=== PATIENT | male | born 1960 | race Caucasian/White ===

== ENCOUNTER 2024-11-01 11:50 | Inpatient (IN) ==
--- NOTE | 2024-11-01 12:11 | Emergency Department Note ---
Impression & Plan Dizziness, Finger infection, Weakness ED Provider Note CHIEF COMPLAINT: Wobbly, losing vision, right finger and hand pain HISTORY OF PRESENTING ILLNESS: The patient is a 63-year-old male with a H paranoid schizophrenia who presents to the emergency department due to multiple complaints and is not giving a clear history. He confirms that he is feeling "wobbly", he has had changes in vision, he has a burn to his right pointer finger, right sided weakness, as well as "blue things on my hands". He denies fevers, chest pain, shortness of breath, abdominal pain. He is not answering my questions appropriately. I asked him if he is taking the antibiotics that he was sent for his right finger abscess and he states that he took it before coming here. He later states "I am wasting away, I am going to here". REVIEW OF SYSTEMS: See HPI for pertinent positives and pertinent negatives. ALLERGIES: NKDA MEDICATIONS: See below PAST MEDICAL HISTORY: See below PHYSICAL EXAM: VITALS: Vitals are noted on the nurses note and reviewed by myself. Vital signs stable. GENERAL: 63-year-old male, lying comfortably in bed, laughing, in no acute distress, nondiaphoretic, well-developed well-nourished. SKIN: Capillary refill less than 2 seconds. No rashes. HEENT: Normocephalic. PERRLA. EOMI. Nares patent. Mucous membranes moist. Neck is supple without nuchal rigidity. No facial droop. HEART: Regular rate and rhythm without murmurs gallops or rubs. LUNGS: CTA BL without wheezes, rales or rhonchi. No retractions or accessory muscle use. ABDOMEN: Positive BS x 4. Soft, nontender, without masses or organomegaly. No guarding or rebound tenderness. MUSCULOSKELETAL: Right pointer finger visualized with infection and swelling. The area is tender to touch. Right hand and fingers FROM. No redness or pain extending into the proximal aspect of the finger or hand. 2+ radial and ulnar pulse palpated bilaterally. 5/5 bilateral upper and lower extremity strength on exam. NEURO: Patient was alert and oriented to person place and time. Normal sensation to light and sharp touch. No focal neurological deficits. DIFFERENTIAL DIAGNOSIS: Stroke, TIA, intracranial hemorrhage, tumor, malignancy, MS, Guillain-Borja, migraine with aura, sepsis, abscess, fracture, dislocation, osteomyelitis, hypoglycemia, electrolyte abnormality, medication side effect, among others. ED COURSE AND MEDICAL DECISION MAKING: HISTORY FROM INDEPENDENT HISTORIAN: The patient himself. MEDICATIONS GIVEN: No medications were given. MONITOR: Continuous pvc monitor: Order was placed for continuous pvc monitor. Patient was placed on the pvc monitor and continuous pulse ox. Patient was noted to be in normal sinus rhythm at an initial rate of 70 bpm per my interpretation. EKG: EKG was interpreted by myself as normal sinus rhythm. No obvious arrhythmia. No ST or T wave abnormality. No significant change when compared to previous EKG from 01/27/2024. INTERPRETATION OF LABS: I interpreted the labs with full lab results as below in the lab section of this note. Pertinent lab results discussed in the MDM section below. INTERPRETATION OF IMAGING: Imaging studies were interpreted by myself and read by radiology as per the imaging section of this note. CT head - No hemorrhage, mass effect, or evidence of acute ischemia change. CTA head neck - Unremarkable CT angio of head and neck. X-ray right pointer finger - Soft tissue swelling with no acute bony abnormality identified. ESCALATION OF CARE CONSIDERED: Escalation of care was considered as the patient's history was all over the place and he was not answering questions appropriately. He does report dizziness as well as right-sided weakness. A stroke workup was completed showing nothing on CT scan and lab work. When the patient was trying to ambulate for discharge he was not able to stand on his own without nursing staff support. The patient was admitted to medicine for further workup. CONSULTATIONS: On-call [facility] hospitalist Dr. Florentino - Presented the patient to the provider. She was able to confirm that the patient is a paranoid schizophrenic and has a history of not taking his medication properly. She was able to find a note regarding the patient's Bactrim that he was prescribed for a right finger infection. He did not nut picker the Bactrim and stated that he was using "wine coolers for pain management". I did inform her of a full stroke workup here in the emergency department due to the patient not making sense and describing unilateral weakness. Nothing significant found on workup but patient was not able to ambulate upon discharge. I tried to contact his mother who did not answer the phone. She agreed to admitting the patient to medicine. MDM SUMMARY: I evaluated the 63-year-old male who presents to the emergency department with many complaints. The patient does have a history of paranoid schizophrenia and his history was all over the place. He reports unilateral weakness, feeling wobbly, and blurry vision at one time. See HPI and physical exam above. IV access was established and labs were obtained. A stroke workup was started after evaluating the patient. Physical exam is unremarkable and does not show neurological deficit or unilateral weakness. CT head as well as CTA head and neck is unremarkable. Patient also has an infection and abscess of the right pointer finger. He told me that he has been taking his antibiotic but when I discussed this case with the hospitalist they confirmed that he has not even picked up the prescription. An x-ray was obtained showing soft tissue swelling with no acute bony abnormality. Lab work shows a mild leukocytosis. WBC elevated 11.58. Hemodynamically stable. Coagulation panel within normal limits. No electrolyte abnormality. No FABIO. Glucose 109. Lactate 1.3. Troponin 4.6. All laboratory results reviewed with the patient. He is concerned regarding "blue stuff on his right middle finger". This does appear to be marker and is removed with alcohol. I had a long discussion with the patient regarding getting home safely today at he states "what am I supposed to do? Walk home?" I asked the patient how he got here today and then he stated " I drove my car is parked out front". When the nursing staff tried to get the patient up and ambulating he was extremely weak and not able to do so. I did reach out to the on-call hospitalist which can be seen in detail above. She agrees to admitting the patient for a full workup. I did try to reach out to his mother who did not answer the phone. Patient is agreeable for admission and all questions answered. The patient was admitted in stable condition. DIAGNOSIS: Dizziness, finger infection, weakness The chart was completed utilizing [employer] Speech voice recognition software. Grammatical errors, random word insertions, pronoun errors, and incomplete sentences are an occasional consequence of this system due to software limitations, ambient noise, and hardware issues. Any formal questions or concerns about the content, text, or information contained within the body of this dictation should be directly addressed to the provider for clarification. Past Med/Surg History Problem List Paranoid schizophrenia Alcohol use Prediabetes Osteomyelitis of finger of right hand Weakness (Acute) Dizziness (Acute) Finger infection (Acute) Abscess of finger of right hand (Acute) Burn of right index finger (Acute) Medical History MDD (major depressive disorder) HLD (hyperlipidemia) Schizophrenia Social History Smoking Status: Never smoker Second Hand Exposure: No; Do You Dip or Chew Tobacco: No; Hx Alcohol Use: Yes Hx Substance Use: No Preferred Language: [place]an Communication Ability: Effective Mission Coordinator Required: No Beliefs That Will Affect Care: None Current Living Situation: Parent Current Living Situation Comment: Mother Other Information That Helps Us Care for You: No Feels Safe at Home: Yes Safety Concerns: Feels Safe At This Time Assistive Devices: None Allergies Allergies Allergy/AdvReac Type Severity Reaction Status Date / Time No Known Allergies Unverified 11/01/24 15:22 Home Meds Previous Rx's Medication Instructions Recorded sulfamethoxazole 800 1 tab PO Q12H #20 tabs 10/29/24 mg-trimethoprim 160 mg tablet (Bactrim DS) Results & Data (ED) Vital Signs Vital Signs - 24 hr 11/01/24 11:58 11/01/24 12:22 11/01/24 12:23 Temperature 36.2 C L Temperature Source Temporal Artery Scan Pulse Rate 89 98 H 79 Pulse Rate [Left Finger] Pulse Rate from SpO2 Sensor Pulse Rhythm [Left Finger] Pulse Strength [Left Finger] Respiratory Rate 18 18 Respiratory Effort / Characteristics Non-Labored Spontaneous Respiratory Depth Normal Respiratory Pattern Regular Blood Pressure 129/86 145/94 H Blood Pressure [Right Arm] Blood Pressure Mean 100 105 Blood Pressure Mean [Right Arm] Blood Pressure Position [Right Arm] Pulse Oximetry 97 94 Oxygen Delivery Method Room Air Sepsis Recent Fever Within 48 Hours No Sepsis New/Unexplained Change in Mental Status N/A Sepsis Action Taken by Nursing No Action Required 11/01/24 12:23 11/01/24 12:45 11/01/24 12:51 Temperature Temperature Source Pulse Rate 65 Pulse Rate [Left Finger] 68 Pulse Rate from SpO2 Sensor 72 66 Pulse Rhythm [Left Finger] Pulse Strength [Left Finger] Respiratory Rate 18 17 Respiratory Effort / Characteristics Non-Labored Respiratory Depth Normal Respiratory Pattern Regular Blood Pressure Blood Pressure [Right Arm] 145/94 H Blood Pressure Mean Blood Pressure Mean [Right Arm] 111 Blood Pressure Position [Right Arm] Lying Pulse Oximetry 97 98 98 Oxygen Delivery Method Room Air Sepsis Recent Fever Within 48 Hours Sepsis New/Unexplained Change in Mental Status Sepsis Action Taken by Nursing 11/01/24 13:06 11/01/24 13:15 11/01/24 13:18 Temperature Temperature Source Pulse Rate 67 67 Pulse Rate [Left Finger] Pulse Rate from SpO2 Sensor 64 67 Pulse Rhythm [Left Finger] Pulse Strength [Left Finger] Respiratory Rate 22 19 Respiratory Effort / Characteristics Respiratory Depth Respiratory Pattern Blood Pressure 139/99 Blood Pressure [Right Arm] Blood Pressure Mean 104 Blood Pressure Mean [Right Arm] Blood Pressure Position [Right Arm] Pulse Oximetry 95 100 Oxygen Delivery Method Sepsis Recent Fever Within 48 Hours Sepsis New/Unexplained Change in Mental Status Sepsis Action Taken by Nursing 11/01/24 13:36 11/01/24 13:48 11/01/24 14:10 Temperature Temperature Source Pulse Rate 62 Pulse Rate [Left Finger] 64 Pulse Rate from SpO2 Sensor 64 Pulse Rhythm [Left Finger] Regular Pulse Strength [Left Finger] Normal Respiratory Rate 22 21 Respiratory Effort / Characteristics Non-Labored Respiratory Depth Normal Respiratory Pattern Blood Pressure 149/103 H 146/98 H Blood Pressure [Right Arm] 149/103 H Blood Pressure Mean 118 107 Blood Pressure Mean [Right Arm] 118 Blood Pressure Position [Right Arm] Lying Pulse Oximetry 97 97 Oxygen Delivery Method Room Air Sepsis Recent Fever Within 48 Hours Sepsis New/Unexplained Change in Mental Status Sepsis Action Taken by Nursing 11/01/24 14:10 11/01/24 14:14 11/01/24 14:30 Temperature Temperature Source Pulse Rate 64 63 Pulse Rate [Left Finger] 64 Pulse Rate from SpO2 Sensor Pulse Rhythm [Left Finger] Pulse Strength [Left Finger] Respiratory Rate 18 20 14 Respiratory Effort / Characteristics Non-Labored Respiratory Depth Normal Respiratory Pattern Regular Blood Pressure 146/98 H 134/80 Blood Pressure [Right Arm] Blood Pressure Mean 107 94 Blood Pressure Mean [Right Arm] Blood Pressure Position [Right Arm] Pulse Oximetry 96 93 94 Oxygen Delivery Method Room Air Sepsis Recent Fever Within 48 Hours Sepsis New/Unexplained Change in Mental Status Sepsis Action Taken by Nursing 11/01/24 14:45 11/01/24 15:45 11/01/24 16:02 Temperature Temperature Source Pulse Rate 63 61 Pulse Rate [Left Finger] 68 Pulse Rate from SpO2 Sensor 63 60 Pulse Rhythm [Left Finger] Pulse Strength [Left Finger] Respiratory Rate 18 16 18 Respiratory Effort / Characteristics Non-Labored Respiratory Depth Normal Respiratory Pattern Regular Blood Pressure Blood Pressure [Right Arm] Blood Pressure Mean Blood Pressure Mean [Right Arm] Blood Pressure Position [Right Arm] Lying Pulse Oximetry 96 94 95 Oxygen Delivery Method Room Air Sepsis Recent Fever Within 48 Hours Sepsis New/Unexplained Change in Mental Status Sepsis Action Taken by Nursing 11/01/24 16:15 11/01/24 16:30 11/01/24 16:51 Temperature Temperature Source Pulse Rate 75 61 65 Pulse Rate [Left Finger] Pulse Rate from SpO2 Sensor 76 62 65 Pulse Rhythm [Left Finger] Pulse Strength [Left Finger] Respiratory Rate 21 19 22 Respiratory Effort / Characteristics Respiratory Depth Respiratory Pattern Blood Pressure 142/100 H 154/100 H Blood Pressure [Right Arm] Blood Pressure Mean 114 118 Blood Pressure Mean [Right Arm] Blood Pressure Position [Right Arm] Pulse Oximetry 95 95 96 Oxygen Delivery Method Sepsis Recent Fever Within 48 Hours Sepsis New/Unexplained Change in Mental Status Sepsis Action Taken by Nursing 11/01/24 17:00 11/01/24 17:41 11/01/24 17:43 Temperature 36.9 C Temperature Source Oral Pulse Rate 86 72 Pulse Rate [Left Finger] 65 Pulse Rate from SpO2 Sensor Pulse Rhythm [Left Finger] Pulse Strength [Left Finger] Respiratory Rate 17 18 Respiratory Effort / Characteristics Non-Labored Respiratory Depth Normal Respiratory Pattern Regular Blood Pressure 135/96 Blood Pressure [Right Arm] Blood Pressure Mean 114 Blood Pressure Mean [Right Arm] Blood Pressure Position [Right Arm] Pulse Oximetry 96 95 Oxygen Delivery Method Room Air Sepsis Recent Fever Within 48 Hours Sepsis New/Unexplained Change in Mental Status Sepsis Action Taken by Nursing 11/01/24 17:53 11/01/24 19:30 Temperature Temperature Source Pulse Rate 58 L Pulse Rate [Left Finger] Pulse Rate from SpO2 Sensor 59 L Pulse Rhythm [Left Finger] Pulse Strength [Left Finger] Respiratory Rate 27 H Respiratory Effort / Characteristics Respiratory Depth Respiratory Pattern Blood Pressure 140/85 Blood Pressure [Right Arm] 126/80 Blood Pressure Mean 103 Blood Pressure Mean [Right Arm] 95 Blood Pressure Position [Right Arm] Pulse Oximetry 94 Oxygen Delivery Method Room Air Sepsis Recent Fever Within 48 Hours Sepsis New/Unexplained Change in Mental Status Sepsis Action Taken by Nursing Laboratory Data 11/04/24 10:17 11/04/24 10:17 Lab Results 11/01/24 11/01/24 11/01/24 Range/Units 12:18 12:22 12:27 WBC 11.58 H (4.8-10.8) K/ul RBC 4.68 L (4.70-6.10) M/uL Hgb 14.3 (14.0-18.0) g/dl POC Hgb 15.6 (14.0-18.0) g/dl Hct 42.7 (42.0-52.0) % POC Hct 46 (42-52) % MCV 91.2 (80.0-100.0) fL MCH 30.6 (25.0-34.0) pg MCHC 33.5 (32.0-36.0) g/dL RDW Std Deviation 49.3 H (36.4-46.3) fL RDW Coeff of Iker 14.8 H (11.5-14.5) % Plt Count 218 (130-400) K/uL MPV 10.7 (9.4-12.4) fL Immature Gran % (Auto) 1.5 % Neut % (Auto) 76.1 % Lymph % (Auto) 16.3 % [place] % (Auto) 0.9 % Eos % (Auto) 2.7 % Baso % (Auto) 2.5 % Neut # (Auto) 8.82 H (1.40-6.50) K/uL Lymph # (Auto) 1.89 (1.20-3.40) K/uL [place] # (Auto) 0.10 L (0.11-0.59) K/uL Eos # (Auto) 0.31 (0.00-0.50) K/uL Baso # (Auto) 0.29 H (0.00-0.20) K/uL Immature Gran # (Auto) 0.17 (0.01-0.20) K/uL PT 10.3 (9.0-12.0) Seconds INR 0.9 (0.9-1.1) APTT 30 (21-31) Seconds PTT Ratio 1.1 POC Sodium 139 (135-144) mmol/L Sodium 135 L (136-145) mmol/L POC Potassium 4.3 (3.3-5.0) mmol/L Potassium 4.2 (3.5-5.1) mmol/L POC Chloride 102 (101-112) mmol/L Chloride 103 (98-107) mmol/L Carbon Dioxide 26 (21-32) mmol/L POC Total CO2 23 L (24-31) mmol/L Anion Gap 6 (3-11) POC Anion Gap 19.0 (16-25) mmol/L POC BUN 13 (7-18) mg/dl BUN 13 (6-23) mg/dl Creatinine 1.02 (0.6-1.4) mg/dl POC Creatinine 1.2 (0.6-1.3) mg/dl Est Cr Clr Drug Dosing 72.3 ml/min eGFR 83.62 BUN/Creatinine Ratio 12.7 (10-20) Glucose 109 H (70-99(Fasting)) mg/dl POC Glucose 103 H (70-99) mg/dl POC Glucose (other) 116 H (70-99) mg/dl Estimat Average Glucose mg/dl Hemoglobin A1c (4.5-5.6) % Lactate (0.4-2.0) mmol/L Calcium 9.7 (8.6-10.3) mg/dl POC Ioniz Calcium Pat 1.21 (1.12-1.32) mmol/l Phosphorus (2.5-4.9) mg/dl Magnesium 1.9 (1.7-2.4) mg/dl Total Bilirubin 0.5 (0.2-1.0) mg/dl AST 20 (13-39) U/L ALT 15 (7-52) U/L Alkaline Phosphatase 124 H (34-104) U/L Total Creatine Kinase (30-223) U/L Troponin I High Sens 4.6 (0-20) pg/ml Total Protein 8.0 (6.0-8.3) gm/dl Albumin 4.5 (3.4-5.0) gm/dl Globulin 3.5 (2.5-4.0) gm/dl Albumin/Globulin Ratio 1.3 (0.9-2) Triglycerides (0-150) mg/dl Cholesterol (0-200) mg/dl LDL Cholesterol, Calc mg/dl VLDL Cholesterol, Calc (0-30) mg/dl HDL Cholesterol mg/dl Cholesterol/HDL Ratio (0-5) Urine Color Urine Appearance (Clear) Urine pH (4.5-7.5) Ur Specific [place] (1.000-1.030) Urine Protein (Negative) Urine Glucose (UA) (Negative) Urine Ketones (Negative) Urine Blood (Negative) Urine Nitrite (Negative) Urine Bilirubin (Negative) Urine Urobilinogen (Negative) Ur Leukocyte Esterase (Negative) Urine Comment Urine Opiates Screen (Neg) Ur Methadone, Qual (Neg) Urine Fentanyl Screen (Neg) Urine Barbiturates (Neg) Ur Phencyclidine (PCP) (Neg) U Amphetamin/Meth Scrn (Neg) MDMA (Ecstasy) Screen (Neg) U Benzodiazepines Scrn (Neg) Ur Cocaine Metabolite (Neg) U Marijuana (THC) Screen (Neg) Ethyl Alcohol mg/dL (<10.0) mg/dl 11/01/24 11/01/24 11/02/24 Range/Units 14:07 17:11 00:47 WBC (4.8-10.8) K/ul RBC (4.70-6.10) M/uL Hgb (14.0-18.0) g/dl POC Hgb (14.0-18.0) g/dl Hct (42.0-52.0) % POC Hct (42-52) % MCV (80.0-100.0) fL MCH (25.0-34.0) pg MCHC (32.0-36.0) g/dL RDW Std Deviation (36.4-46.3) fL RDW Coeff of Iker (11.5-14.5) % Plt Count (130-400) K/uL MPV (9.4-12.4) fL Immature Gran % (Auto) % Neut % (Auto) % Lymph % (Auto) % [place] % (Auto) % Eos % (Auto) % Baso % (Auto) % Neut # (Auto) (1.40-6.50) K/uL Lymph # (Auto) (1.20-3.40) K/uL [place] # (Auto) (0.11-0.59) K/uL Eos # (Auto) (0.00-0.50) K/uL Baso # (Auto) (0.00-0.20) K/uL Immature Gran # (Auto) (0.01-0.20) K/uL PT (9.0-12.0) Seconds INR (0.9-1.1) APTT (21-31) Seconds PTT Ratio POC Sodium (135-144) mmol/L Sodium (136-145) mmol/L POC Potassium (3.3-5.0) mmol/L Potassium (3.5-5.1) mmol/L POC Chloride (101-112) mmol/L Chloride (98-107) mmol/L Carbon Dioxide (21-32) mmol/L POC Total CO2 (24-31) mmol/L Anion Gap (3-11) POC Anion Gap (16-25) mmol/L POC BUN (7-18) mg/dl BUN (6-23) mg/dl Creatinine (0.6-1.4) mg/dl POC Creatinine (0.6-1.3) mg/dl Est Cr Clr Drug Dosing ml/min eGFR BUN/Creatinine Ratio (10-20) Glucose (70-99(Fasting)) mg/dl POC Glucose (70-99) mg/dl POC Glucose (other) (70-99) mg/dl Estimat Average Glucose mg/dl Hemoglobin A1c (4.5-5.6) % Lactate 1.3 (0.4-2.0) mmol/L Calcium (8.6-10.3) mg/dl POC Ioniz Calcium Pat (1.12-1.32) mmol/l Phosphorus (2.5-4.9) mg/dl Magnesium (1.7-2.4) mg/dl Total Bilirubin (0.2-1.0) mg/dl AST (13-39) U/L ALT (7-52) U/L Alkaline Phosphatase (34-104) U/L Total Creatine Kinase 115 (30-223) U/L Troponin I High Sens (0-20) pg/ml Total Protein (6.0-8.3) gm/dl Albumin (3.4-5.0) gm/dl Globulin (2.5-4.0) gm/dl Albumin/Globulin Ratio (0.9-2) Triglycerides (0-150) mg/dl Cholesterol (0-200) mg/dl LDL Cholesterol, Calc mg/dl VLDL Cholesterol, Calc (0-30) mg/dl HDL Cholesterol mg/dl Cholesterol/HDL Ratio (0-5) Urine Color Yellow Urine Appearance Clear (Clear) Urine pH 7.0 (4.5-7.5) Ur Specific [place] > 1.045 H (1.000-1.030) Urine Protein Negative (Negative) Urine Glucose (UA) Negative (Negative) Urine Ketones Trace H (Negative) Urine Blood Negative (Negative) Urine Nitrite Negative (Negative) Urine Bilirubin Negative (Negative) Urine Urobilinogen Negative (Negative) Ur Leukocyte Esterase Negative (Negative) Urine Comment Urine Opiates Screen Neg (Neg) Ur Methadone, Qual Neg (Neg) Urine Fentanyl Screen Neg (Neg) Urine Barbiturates Neg (Neg) Ur Phencyclidine (PCP) Neg (Neg) U Amphetamin/Meth Scrn Neg (Neg) MDMA (Ecstasy) Screen Neg (Neg) U Benzodiazepines Scrn Neg (Neg) Ur Cocaine Metabolite Neg (Neg) U Marijuana (THC) Screen Neg (Neg) Ethyl Alcohol mg/dL < 10.0 (<10.0) mg/dl 11/02/24 Range/Units 03:59 WBC 15.20 H (4.8-10.8) K/ul RBC 4.54 L (4.70-6.10) M/uL Hgb 14.0 (14.0-18.0) g/dl POC Hgb (14.0-18.0) g/dl Hct 41.1 L (42.0-52.0) % POC Hct (42-52) % MCV 90.5 (80.0-100.0) fL MCH 30.8 (25.0-34.0) pg MCHC 34.1 (32.0-36.0) g/dL RDW Std Deviation 48.9 H (36.4-46.3) fL RDW Coeff of Iker 14.8 H (11.5-14.5) % Plt Count 166 (130-400) K/uL MPV 10.3 (9.4-12.4) fL Immature Gran % (Auto) % Neut % (Auto) % Lymph % (Auto) % [place] % (Auto) % Eos % (Auto) % Baso % (Auto) % Neut # (Auto) (1.40-6.50) K/uL Lymph # (Auto) (1.20-3.40) K/uL [place] # (Auto) (0.11-0.59) K/uL Eos # (Auto) (0.00-0.50) K/uL Baso # (Auto) (0.00-0.20) K/uL Immature Gran # (Auto) (0.01-0.20) K/uL PT (9.0-12.0) Seconds INR (0.9-1.1) APTT (21-31) Seconds PTT Ratio POC Sodium (135-144) mmol/L Sodium 135 L (136-145) mmol/L POC Potassium (3.3-5.0) mmol/L Potassium 4.0 (3.5-5.1) mmol/L POC Chloride (101-112) mmol/L Chloride 103 (98-107) mmol/L Carbon Dioxide 26 (21-32) mmol/L POC Total CO2 (24-31) mmol/L Anion Gap 6 (3-11) POC Anion Gap (16-25) mmol/L POC BUN (7-18) mg/dl BUN 13 (6-23) mg/dl Creatinine 1.14 (0.6-1.4) mg/dl POC Creatinine (0.6-1.3) mg/dl Est Cr Clr Drug Dosing 64.7 ml/min eGFR 73.17 BUN/Creatinine Ratio 11.4 (10-20) Glucose 97 (70-99(Fasting)) mg/dl POC Glucose (70-99) mg/dl POC Glucose (other) (70-99) mg/dl Estimat Average Glucose 117 mg/dl Hemoglobin A1c 5.7 H (4.5-5.6) % Lactate (0.4-2.0) mmol/L Calcium 8.8 (8.6-10.3) mg/dl POC Ioniz Calcium Pat (1.12-1.32) mmol/l Phosphorus 2.9 (2.5-4.9) mg/dl Magnesium 2.1 (1.7-2.4) mg/dl Total Bilirubin (0.2-1.0) mg/dl AST (13-39) U/L ALT (7-52) U/L Alkaline Phosphatase (34-104) U/L Total Creatine Kinase (30-223) U/L Troponin I High Sens (0-20) pg/ml Total Protein (6.0-8.3) gm/dl Albumin (3.4-5.0) gm/dl Globulin (2.5-4.0) gm/dl Albumin/Globulin Ratio (0.9-2) Triglycerides 79 (0-150) mg/dl Cholesterol 141 (0-200) mg/dl LDL Cholesterol, Calc 85 mg/dl VLDL Cholesterol, Calc 16 (0-30) mg/dl HDL Cholesterol 40 mg/dl Cholesterol/HDL Ratio 3.5 (0-5) Urine Color Urine Appearance (Clear) Urine pH (4.5-7.5) Ur Specific [place] (1.000-1.030) Urine Protein (Negative) Urine Glucose (UA) (Negative) Urine Ketones (Negative) Urine Blood (Negative) Urine Nitrite (Negative) Urine Bilirubin (Negative) Urine Urobilinogen (Negative) Ur Leukocyte Esterase (Negative) Urine Comment Urine Opiates Screen (Neg) Ur Methadone, Qual (Neg) Urine Fentanyl Screen (Neg) Urine Barbiturates (Neg) Ur Phencyclidine (PCP) (Neg) U Amphetamin/Meth Scrn (Neg) MDMA (Ecstasy) Screen (Neg) U Benzodiazepines Scrn (Neg) Ur Cocaine Metabolite (Neg) U Marijuana (THC) Screen (Neg) Ethyl Alcohol mg/dL (<10.0) mg/dl Administered Medications Docusate Sodium (Docusate Sodium 100 Mg Cap) 100 mg PO BID STEFAN Stop: 12/02/24 20:59 Last Admin: 11/04/24 08:54 Dose: 100 mg Documented By: Admin: 11/03/24 21:20 Dose: 100 mg Documented By: Admin: 11/03/24 09:28 Dose: Not Given Documented By: Admin: 11/02/24 20:50 Dose: 100 mg Documented By: RUKHSANA Enoxaparin Sodium (Enoxaparin Inj 40 Mg/0.4 Ml Syr) 40 mg SQ Q24H STEFAN Stop: 12/01/24 21:48 Last Admin: 11/03/24 21:20 Dose: 40 mg Documented By: Admin: 11/02/24 20:51 Dose: 40 mg Documented By: Admin: 11/01/24 23:16 Dose: 40 mg Documented By: RAHEEM Folic Acid (Folic Acid 1 Mg Tab) 1 mg PO QAM STEFAN Stop: 12/02/24 08:59 Last Admin: 11/04/24 08:47 Dose: 1 mg Documented By: Admin: 11/03/24 09:29 Dose: 1 mg Documented By: Admin: 11/02/24 08:49 Dose: 1 mg Documented By: JEB Vancomycin HCl 1,000 mg/ (Sodium Chloride) 270 mls @ 200 mls/hr IV Q12H STEFAN Stop: 11/09/24 15:59 Last Infusion: 11/04/24 17:28 Dose: Infused Documented By: Admin: 11/04/24 16:07 Dose: 200 mls/hr Documented By: Infusion: 11/04/24 05:39 Dose: Infused Documented By: Admin: 11/04/24 04:11 Dose: 200 mls/hr Documented By: Infusion: 11/03/24 17:48 Dose: Infused Documented By: Admin: 11/03/24 16:26 Dose: 200 mls/hr Documented By: IOANA Ibuprofen (Ibuprofen 800 Mg Tab) 800 mg PO Q8H PRN PRN Reason: pain Stop: 12/02/24 10:44 Last Admin: 11/03/24 09:28 Dose: 800 mg Documented By: Admin: 11/02/24 11:08 Dose: 800 mg Documented By: JEB Multivitamins (Multivitamin Tab) 1 tab PO QAM STEFAN Stop: 12/03/24 08:59 Last Admin: 11/04/24 08:47 Dose: 1 tab Documented By: Admin: 11/03/24 10:54 Dose: 1 tab Documented By: IOANA Olanzapine (Olanzapine 2.5 Mg Tab) 2.5 mg PO HS STEFAN Stop: 12/01/24 21:48 Last Admin: 11/03/24 21:20 Dose: 2.5 mg Documented By: Admin: 11/02/24 20:50 Dose: 2.5 mg Documented By: Admin: 11/01/24 23:16 Dose: 2.5 mg Documented By: RAHEEM Thiamine HCl (Thiamine Hcl 100 Mg Tab) 100 mg PO QAM STEFAN Stop: 12/02/24 08:59 Last Admin: 11/04/24 08:47 Dose: 100 mg Documented By: Admin: 11/03/24 09:29 Dose: 100 mg Documented By: Admin: 11/02/24 08:49 Dose: 100 mg Documented By: JEB Discontinued Medications Acetaminophen (Acetaminophen 325 Mg Tab) 650 mg PO Q4H PRN PRN Reason: pain/fever Stop: 12/01/24 21:48 Last Admin: 11/02/24 06:53 Dose: 650 mg Documented By: Bupivacaine HCl (Bupivacaine 0.5 % 5 Mg/1 Ml Mpf 30ml Vial) Confirm Administered Dose 30 ml .ROUTE .STK-MED ONE Stop: 11/02/24 14:00 Last Admin: 11/02/24 14:36 Dose: Not Given Documented By: TAMMY Bupivacaine HCl (Bupivacaine 0.25% Pf 30 Ml Vial) Confirm Administered Dose 30 ml .ROUTE .STK-MED ONE Stop: 11/02/24 14:01 Last Admin: 11/02/24 14:36 Dose: 10 ml Documented By: EZIO Vancomycin HCl 1,750 mg/ (Sodium Chloride) 535 mls @ 200 mls/hr IV NOW ONE Stop: 11/01/24 19:55 Last Infusion: 11/01/24 21:35 Dose: Infused Documented By: Admin: 11/01/24 18:51 Dose: 200 mls/hr Documented By: DANILO Ceftriaxone Sodium (Rocephin) 2,000 mg in 50 mls @ 100 mls/hr IV NOW STA Stop: 11/01/24 17:39 Last Infusion: 11/01/24 19:14 Dose: Infused Documented By: Admin: 11/01/24 17:48 Dose: 100 mls/hr Documented By: rajan Acetaminophen (Ofirmev) 1,000 mg in 100 mls @ 400 mls/hr IV NOW STA Stop: 11/01/24 17:58 Last Infusion: 11/01/24 18:27 Dose: Infused Documented By: Admin: 11/01/24 18:12 Dose: 400 mls/hr Documented By: rajan Vancomycin HCl 750 mg/ Sodium (Chloride) 265 mls @ 200 mls/hr IV Q12H [facility] Stop: 11/03/24 12:00 Last Infusion: 11/03/24 10:54 Dose: Infused Documented By: Admin: 11/03/24 09:27 Dose: 200 mls/hr Documented By: Infusion: 11/02/24 22:11 Dose: Infused Documented By: Admin: 11/02/24 20:47 Dose: 200 mls/hr Documented By: Infusion: 11/02/24 10:59 Dose: Infused Documented By: TRAmy Admin: 11/02/24 09:12 Dose: 200 mls/hr Documented By: JEB Sodium Chloride (Nss) 1,000 mls @ 100 mls/hr IV .Q10H STEFAN Stop: 11/03/24 06:00 Last Infusion: 11/03/24 09:38 Dose: Infused Documented By: Admin: 11/03/24 04:21 Dose: 100 mls/hr Documented By: Infusion: 11/03/24 03:22 Dose: Infused Documented By: Infusion: 11/02/24 22:11 Dose: 100 mls/hr Documented By: Infusion: 11/02/24 20:45 Dose: 0 mls/hr Documented By: Admin: 11/02/24 15:56 Dose: 100 mls/hr Documented By: BERENICE Ioversol (Optiray 320 125ml) 120 ml IV ONCE ONE Stop: 11/01/24 12:51 Last Admin: 11/01/24 12:50 Dose: 120 ml Documented By: SARI Imaging Data Radiologist's Impression: Head CT 11/01/24 12:[address] OF THE BRAIN; CT ANGIOGRAM OF THE BRAIN; CT ANGIOGRAM OF THE NECK CLINICAL HISTORY: Neurological deficit. Stroke like symptoms. Right-sided weakness. Dizziness. COMPARISON STUDY: CT of the brain dated 02/04/2010 TECHNIQUE: Unenhanced axial CT scan of the brain is performed. Subsequently, following the IV administration of 120 of Optiray 320, CT angiogram of the head and neck was performed from the aortic arch to the vertex. Images are reviewed in the axial, sagittal, and coronal planes. 3-D MIPS images are created and assessed. IV contrast was administered without complication. All measurements were calculated based on NASCET criteria. A dose lowering technique was utilized adhering to the principles of ALARA. CT DOSE: 1143.59 mGy.cm FINDINGS: Brain parenchyma: The brain parenchyma is normal in appearance. There is no hemorrhage, mass effect, or evidence of acute territorial ischemia by CT criteria. There is no evidence of enhancing mass lesion on the angiogram phase images. The ventricles, sulci, and cisterns are normal in configuration. Koch- white matter differentiation is preserved. No extra-axial fluid collection is seen. Thoracic aorta: Visualized portions of the thoracic aorta are normal in caliber. The aortic arch demonstrates standard 3-vessel anatomy. Right carotid arterial system: The right common carotid artery is widely patent, as are the right internal and external carotid arteries. Mild calcified plaque is seen in the carotid bulb. Left carotid arterial system: The left common carotid artery is widely patent, as are the left internal and external carotid arteries. Mild calcified plaque is seen in the carotid bulb. Vertebral arteries: Widely patent bilaterally no definite left sided dominance. Subclavian arteries: Widely patent bilaterally. Intracranial vasculature: There is atherosclerotic calcification of the cavernous carotid arteries. The internal carotid arteries are patent at the skull base, as are the anterior and middle cerebral arteries bilaterally. The vertebrobasilar system and posterior cerebral arteries are widely patent. The left vertebral artery is dominant. There is origin of the left posterior cerebral artery. A posterior communicating artery is seen on the right. There is no aneurysm, high-grade stenosis, or focal vessel cut off seen throughout the intracranial circulation. Jugular veins: Patent bilaterally. Dural sinuses: Patent. Lung apices: Partially visualized upper lobe lung parenchyma appears clear. Soft tissues: The visualized pharyngeal soft tissues are normal in appearance noting angiographic phase technique. The oropharyngeal airway appears widely patent. The salivary and thyroid glands are normal in appearance. No cervical lymphadenopathy is seen. Skeletal structures: The skeletal structures are osteopenic. The calvarium appears intact. The cervical spine is maintained noting multilevel spondylosis. Orbits: The bony orbits are intact. Orbital contents are normal as visualized. Sinuses and mastoids: There is trace because of thickening within the maxillary antra. The paranasal sinuses are otherwise clear. The mastoid air cells are well pneumatized. IMPRESSION: 1. There is no hemorrhage, mass effect, or evidence of acute territorial ischemia by CT criteria. 2. Unremarkable CT angiogram of the brain. 3. Unremarkable CT angiogram of the neck. ACT 112: Negative or not required by law. Electronically signed by: Randy Soares M.D. 11/01/2024 1:07 PM Head CTA 11/01/24 12:[address] OF THE BRAIN; CT ANGIOGRAM OF THE BRAIN; CT ANGIOGRAM OF THE NECK CLINICAL HISTORY: Neurological deficit. Stroke like symptoms. Right-sided weakness. Dizziness. COMPARISON STUDY: CT of the brain dated 02/04/2010 TECHNIQUE: Unenhanced axial CT scan of the brain is performed. Subsequently, following the IV administration of 120 of Optiray 320, CT angiogram of the head and neck was performed from the aortic arch to the vertex. Images are reviewed in the axial, sagittal, and coronal planes. 3-D MIPS images are created and assessed. IV contrast was administered without complication. All measurements were calculated based on NASCET criteria. A dose lowering technique was utilized adhering to the principles of ALARA. CT DOSE: 1143.59 mGy.cm FINDINGS: Brain parenchyma: The brain parenchyma is normal in appearance. There is no hemorrhage, mass effect, or evidence of acute territorial ischemia by CT criteria. There is no evidence of enhancing mass lesion on the angiogram phase images. The ventricles, sulci, and cisterns are normal in configuration. Koch- white matter differentiation is preserved. No extra-axial fluid collection is seen. Thoracic aorta: Visualized portions of the thoracic aorta are normal in caliber. The aortic arch demonstrates standard 3-vessel anatomy. Right carotid arterial system: The right common carotid artery is widely patent, as are the right internal and external carotid arteries. Mild calcified plaque is seen in the carotid bulb. Left carotid arterial system: The left common carotid artery is widely patent, as are the left internal and external carotid arteries. Mild calcified plaque is seen in the carotid bulb. Vertebral arteries: Widely patent bilaterally no definite left sided dominance. Subclavian arteries: Widely patent bilaterally. Intracranial vasculature: There is atherosclerotic calcification of the cavernous carotid arteries. The internal carotid arteries are patent at the skull base, as are the anterior and middle cerebral arteries bilaterally. The vertebrobasilar system and posterior cerebral arteries are widely patent. The left vertebral artery is dominant. There is origin of the left posterior cerebral artery. A posterior communicating artery is seen on the right. There is no aneurysm, high-grade stenosis, or focal vessel cut off seen throughout the intracranial circulation. Jugular veins: Patent bilaterally. Dural sinuses: Patent. Lung apices: Partially visualized upper lobe lung parenchyma appears clear. Soft tissues: The visualized pharyngeal soft tissues are normal in appearance noting angiographic phase technique. The oropharyngeal airway appears widely patent. The salivary and thyroid glands are normal in appearance. No cervical lymphadenopathy is seen. Skeletal structures: The skeletal structures are osteopenic. The calvarium appears intact. The cervical spine is maintained noting multilevel spondylosis. Orbits: The bony orbits are intact. Orbital contents are normal as visualized. Sinuses and mastoids: There is trace because of thickening within the maxillary antra. The paranasal sinuses are otherwise clear. The mastoid air cells are well pneumatized. IMPRESSION: 1. There is no hemorrhage, mass effect, or evidence of acute territorial ischemia by CT criteria. 2. Unremarkable CT angiogram of the brain. 3. Unremarkable CT angiogram of the neck. ACT 112: Negative or not required by law. Electronically signed by: Randy Soares M.D. 11/01/2024 1:07 PM Neck CTA 11/01/24 12:[address] OF THE BRAIN; CT ANGIOGRAM OF THE BRAIN; CT ANGIOGRAM OF THE NECK CLINICAL HISTORY: Neurological deficit. Stroke like symptoms. Right-sided weakness. Dizziness. COMPARISON STUDY: CT of the brain dated 02/04/2010 TECHNIQUE: Unenhanced axial CT scan of the brain is performed. Subsequently, following the IV administration of 120 of Optiray 320, CT angiogram of the head and neck was performed from the aortic arch to the vertex. Images are reviewed in the axial, sagittal, and coronal planes. 3-D MIPS images are created and assessed. IV contrast was administered without complication. All measurements were calculated based on NASCET criteria. A dose lowering technique was utilized adhering to the principles of ALARA. CT DOSE: 1143.59 mGy.cm FINDINGS: Brain parenchyma: The brain parenchyma is normal in appearance. There is no hemorrhage, mass effect, or evidence of acute territorial ischemia by CT criteria. There is no evidence of enhancing mass lesion on the angiogram phase images. The ventricles, sulci, and cisterns are normal in configuration. Koch- white matter differentiation is preserved. No extra-axial fluid collection is seen. Thoracic aorta: Visualized portions of the thoracic aorta are normal in caliber. The aortic arch demonstrates standard 3-vessel anatomy. Right carotid arterial system: The right common carotid artery is widely patent, as are the right internal and external carotid arteries. Mild calcified plaque is seen in the carotid bulb. Left carotid arterial system: The left common carotid artery is widely patent, as are the left internal and external carotid arteries. Mild calcified plaque is seen in the carotid bulb. Vertebral arteries: Widely patent bilaterally no definite left sided dominance. Subclavian arteries: Widely patent bilaterally. Intracranial vasculature: There is atherosclerotic calcification of the cavernous carotid arteries. The internal carotid arteries are patent at the skull base, as are the anterior and middle cerebral arteries bilaterally. The vertebrobasilar system and posterior cerebral arteries are widely patent. The left vertebral artery is dominant. There is origin of the left posterior cerebral artery. A posterior communicating artery is seen on the right. There is no aneurysm, high-grade stenosis, or focal vessel cut off seen throughout the intracranial circulation. Jugular veins: Patent bilaterally. Dural sinuses: Patent. Lung apices: Partially visualized upper lobe lung parenchyma appears clear. Soft tissues: The visualized pharyngeal soft tissues are normal in appearance noting angiographic phase technique. The oropharyngeal airway appears widely patent. The salivary and thyroid glands are normal in appearance. No cervical lymphadenopathy is seen. Skeletal structures: The skeletal structures are osteopenic. The calvarium appears intact. The cervical spine is maintained noting multilevel spondylosis. Orbits: The bony orbits are intact. Orbital contents are normal as visualized. Sinuses and mastoids: There is trace because of thickening within the maxillary antra. The paranasal sinuses are otherwise clear. The mastoid air cells are well pneumatized. IMPRESSION: 1. There is no hemorrhage, mass effect, or evidence of acute territorial ischemia by CT criteria. 2. Unremarkable CT angiogram of the brain. 3. Unremarkable CT angiogram of the neck. ACT 112: Negative or not required by law. Electronically signed by: Randy Soares M.D. 11/01/2024 1:07 PM Finger X-Ray 11/01/24 12:35 RIGHT THIRD FINGER 3 VIEWS CLINICAL HISTORY: Third finger infection. FINDINGS: 3 views of the right third finger are obtained. No prior studies are available for comparison at the time of dictation. The skeletal structures are osteopenic. No fracture or dislocation is seen in the third digit. There is only mild arthritic change. Moderate to severe arthritic change is noted at the first carpometacarpal joint. Soft tissue swelling is seen in the second finger, greatest distally. No soft tissue gas or radiodense foreign body is identified. IMPRESSION: Soft tissue swelling with no acute bony abnormality identified. Electronically signed by: Randy Soares M.D. 11/01/2024 1:52 PM Discharge Plan Visit Data Chief Complaint: Dizziness Stated Complaint: WOBBLY, LOSING VISION, R FINGER/HAND PAIN ED Provider: Jono Downing ED Midlevel Provider: Shikha Arellano Discharge Problem: Dizziness, Finger infection, Weakness Patient Disposition: Home - Self-Care Condition: Good Discharge Instructions Interventions: ED Discharge Assessment Last Done: 11/01/24 21:49
[2024-11-01] MEDS: OPTIRAY 320 125ml IV ONE (12:50)
[2024-11-01 12:59] LABS: Hematocrit (blood only) 42.7 % (42.0-52.0); Hemoglobin 14.3 g/dl (14.0-18.0); Mean Corpuscular Hemoglobin 30.6 pg (25.0-34.0); Mean Corpuscular Volume 91.2 fL (80.0-100.0); Platelet Count 218 K/uL (130-400); RDW Standard Deviation 49.3 fL (36.4-46.3); Red Blood Count 4.68 M/uL (4.70-6.10); White Blood Count 11.58 K/ul (4.8-10.8)
[2024-11-01 13:07] LABS: Alanine Aminotransferase 15.0 U/L (7-52); Albumin Globulin Ratio 1.3 (0.9-2); Alkaline Phosphatase 124.0 U/L (34-104); Anion Gap 6.0 (3-11); Bilirubin,Total 0.5 mg/dl (0.2-1.0); Blood Urea Nitrogen 13.0 mg/dl (6-23); Calcium 9.7 mg/dl (8.6-10.3); Carbon Dioxide 26.0 mmol/L (21-32); Chloride 103.0 mmol/L (98-107); Creatinine Clr Calc Pharmacy 72.3 ml/min; Globulin 3.5 gm/dl (2.5-4.0); Glucose 109.0 mg/dl (70-99(Fasting)); Magnesium 1.9 mg/dl (1.7-2.4); Potassium 4.2 mmol/L (3.5-5.1); Sodium 135.0 mmol/L (136-145); Total Protein 8.0 gm/dl (6.0-8.3)
--- NOTE | 2024-11-01 13:08 | Electrocardiogram Report ---
Test Reason : Blood Pressure : */* mmHG Vent. Rate : 70 BPM Atrial Rate : 70 BPM P-R Int : 178 ms QRS Dur : 82 ms QT Int : 366 ms P-R-T Axes : 51 28 60 degrees QTcB Int : 395 ms Normal sinus rhythm Normal ECG When compared with ECG of 27-Jan-2024 02:26, No significant change was found Confirmed by Gordy Villalta ([id number]) on 11/01/2024 1:08:27 PM Referred By: REFERRED SELF Confirmed By: Gordy Villalta
--- NOTE | 2024-11-01 13:09 | CT Scan Report ---
UNENHANCED CT OF THE BRAIN; CT ANGIOGRAM OF THE BRAIN; CT ANGIOGRAM OF THE NECK CLINICAL HISTORY: Neurological deficit. Stroke like symptoms. Right-sided weakness. Dizziness. COMPARISON STUDY: CT of the brain dated 02/04/2010 TECHNIQUE: Unenhanced axial CT scan of the brain is performed. Subsequently, following the IV adminis tration of 120 of Optiray 320, CT angiogram of the head and neck was performed from the aortic arch t o the vertex. Images are reviewed in the axial, sagittal, and coronal planes. 3-D MIPS images are cre ated and assessed. IV contrast was administered without complication. All measurements were calculate d based on NASCET criteria. A dose lowering technique was utilized adhering to the principles of ALA RA. CT DOSE: 1143.59 mGy.cm FINDINGS: Brain parenchyma: The brain parenchyma is normal in appearance. There is no hemorrhage, mass effect, or evidence of acute territorial ischemia by CT criteria. There is no evidence of enhancing mass lesi on on the angiogram phase images. The ventricles, sulci, and cisterns are normal in configuration. Gr ay-white matter differentiation is preserved. No extra-axial fluid collection is seen. Thoracic aorta: Visualized portions of the thoracic aorta are normal in caliber. The aortic arch demo nstrates standard 3-vessel anatomy. Right carotid arterial system: The right common carotid artery is widely patent, as are the right int ernal and external carotid arteries. Mild calcified plaque is seen in the carotid bulb. Left carotid arterial system: The left common carotid artery is widely patent, as are the left internal control analyst al and external carotid arteries. Mild calcified plaque is seen in the carotid bulb. Vertebral arteries: Widely patent bilaterally no definite left sided dominance. Subclavian arteries: Widely patent bilaterally. Intracranial vasculature: There is atherosclerotic calcification of the cavernous carotid arteries. T he internal carotid arteries are patent at the skull base, as are the anterior and middle cerebral ar teries bilaterally. The vertebrobasilar system and posterior cerebral arteries are widely patent. The left vertebral artery is dominant. There is origin of the left posterior cerebral artery. A po sterior communicating artery is seen on the right. There is no aneurysm, high-grade stenosis, or foca l vessel cut off seen throughout the intracranial circulation. Jugular veins: Patent bilaterally. Dural sinuses: Patent. Lung apices: Partially visualized upper lobe lung parenchyma appears clear. Soft tissues: The visualized pharyngeal soft tissues are normal in appearance noting angiographic pha se technique. The oropharyngeal airway appears widely patent. The salivary and thyroid glands are nor mal in appearance. No cervical lymphadenopathy is seen. Skeletal structures: The skeletal structures are osteopenic. The calvarium appears intact. The cervic al spine is maintained noting multilevel spondylosis. Orbits: The bony orbits are intact. Orbital contents are normal as visualized. Sinuses and mastoids: There is trace because of thickening within the maxillary antra. The paranasal sinuses are otherwise clear. The mastoid air cells are well pneumatized. IMPRESSION: 1. There is no hemorrhage, mass effect, or evidence of acute territorial ischemia by CT criteria. 2. Unremarkable CT angiogram of the brain. 3. Unremarkable CT angiogram of the neck. ACT 112: Negative or not required by law. Electronically signed by: Randy Soares M.D. 11/01/2024 1:07 PM
[2024-11-01 13:30] LABS: INR 0.9 (0.9-1.1); Partial Thromboplastin Time 30 Seconds (21-31); Prothrombin Time 10.3 Seconds (9.0-12.0)
[2024-11-01 13:38] LABS: Immature Granulocytes # (auto) 0.17 K/uL (0.01-0.20); Immature Granulocytes % (auto) 1.5 %
--- NOTE | 2024-11-01 13:53 | XRay Report ---
RIGHT THIRD FINGER 3 VIEWS CLINICAL HISTORY: Third finger infection. FINDINGS: 3 views of the right third finger are obtained. No prior studies are available for comparis on at the time of dictation. The skeletal structures are osteopenic. No fracture or dislocation is se en in the third digit. There is only mild arthritic change. Moderate to severe arthritic change is no john at the first carpometacarpal joint. Soft tissue swelling is seen in the second finger, greatest d istally. No soft tissue gas or radiodense foreign body is identified. IMPRESSION: Soft tissue swelling with no acute bony abnormality identified. Electronically signed by: Randy Soares M.D. 11/01/2024 1:52 PM
--- NOTE | 2024-11-01 16:45 | Hospitalist Progress Note ---
Date of Service November 01, 2024 Assessment & Plan Plan MRSA Adriel Orta is a 63 year old male that presents for Emergency Department Follow-Up Pt here today for an ER f/up after being seen on 10/24 with burn and paronychia of R index finger. Had the area drained and pt was placed on Keflex. Continues to have significant swelling and pain of the area. States he's nearly done with the antibiotic. Results & Data Results & Data Vital Signs (Past 12 Hours) Vital Signs Temp Pulse Pulse Resp BP BP Pulse Ox 11/01/24 16:02 68 18 95 11/01/24 15:45 61 16 94 11/01/24 14:45 63 18 96 11/01/24 14:30 63 14 134/80 94 11/01/24 14:14 64 20 93 11/01/24 14:10 64 18 146/98 H 96 11/01/24 14:10 146/98 H 11/01/24 13:48 64 21 149/103 H 97 11/01/24 13:36 62 22 149/103 H 97 11/01/24 13:18 67 19 100 11/01/24 13:15 139/99 11/01/24 13:06 67 22 95 11/01/24 12:51 65 17 98 11/01/24 12:45 98 11/01/24 12:23 68 18 145/94 H 97 11/01/24 12:23 79 11/01/24 12:22 98 H 18 145/94 H 94 11/01/24 11:58 36.2 C L 89 18 129/86 97 O2 Del Method 11/01/24 16:02 Room Air 11/01/24 15:45 11/01/24 14:45 11/01/24 14:30 11/01/24 14:14 Room Air 11/01/24 14:10 11/01/24 14:10 11/01/24 13:48 Room Air 11/01/24 13:36 11/01/24 13:18 11/01/24 13:15 11/01/24 13:06 11/01/24 12:51 11/01/24 12:45 11/01/24 12:23 Room Air 11/01/24 12:23 11/01/24 12:22 11/01/24 11:58 Room Air
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
[2024-11-01] MEDS ORDERED: VANCOMYCIN CONSULT ACTIVE PRN (17:04)
[2024-11-01] MEDS: cefTRIAXone SODIUM 2,000 MG/50 ML BAG IV STA (17:48)
[2024-11-01] MEDS: ACETAMINOPHEN 1,000 MG/100 ML VIAL IV STA (18:12)
[2024-11-01] MEDS: VANCOMYCIN HCL 1,750 MG in SODIUM CHLORIDE 0.9% 500 ML IV ONE (18:51)
[2024-11-01] MEDS ORDERED: ONDANSETRON INJ 2 MG/ML 2 ML VIAL IV PRN (21:49)
[2024-11-01] MEDS ORDERED: LORazepam 1 MG TAB PO PRN (21:49)
[2024-11-01] MEDS ORDERED: MELATONIN 3 MG TAB PO PRN (21:49)
[2024-11-01] MEDS ORDERED: POLYETHYLENE (MIRALAX) 17 GM PACK PO PRN (21:49)
[2024-11-01] MEDS: ENOXAPARIN INJ 40 MG/0.4 ML SYR SQ SCH (23:16)
[2024-11-01] MEDS: OLANZAPINE 2.5 MG TAB PO SCH (23:16)
[2024-11-02 01:44] LABS: Appearance Urine Clear (Clear); Glucose Urine UA Negative (Negative)
[2024-11-02 02:25] LABS: Amphetamines+Metham, Urine Neg (Neg); MDMA (Ecstacy), Urine Neg (Neg); Marijuana, Urine Neg (Neg)
[2024-11-02 04:27] LABS: Hematocrit (blood only) 41.1 % (42.0-52.0); Hemoglobin 14.0 g/dl (14.0-18.0); Mean Corpuscular Hemoglobin 30.8 pg (25.0-34.0); Mean Corpuscular Volume 90.5 fL (80.0-100.0); Platelet Count 166 K/uL (130-400); RDW Standard Deviation 48.9 fL (36.4-46.3); Red Blood Count 4.54 M/uL (4.70-6.10); White Blood Count 15.20 K/ul (4.8-10.8)
[2024-11-02 04:41] LABS: Anion Gap 6.0 (3-11); Blood Urea Nitrogen 13.0 mg/dl (6-23); Calcium 8.8 mg/dl (8.6-10.3); Carbon Dioxide 26.0 mmol/L (21-32); Chloride 103.0 mmol/L (98-107); Cholesterol 141.0 mg/dl (0-200); Creatinine Clr Calc Pharmacy 64.7 ml/min; Glucose 97.0 mg/dl (70-99(Fasting)); HDL Cholesterol 40.0 mg/dl; Magnesium 2.1 mg/dl (1.7-2.4); Potassium 4.0 mmol/L (3.5-5.1); Sodium 135.0 mmol/L (136-145); Triglycerides 79.0 mg/dl (0-150)
[2024-11-02] MEDS: ACETAMINOPHEN 325 MG TAB PO PRN (06:53)
[2024-11-02 08:21] LABS: Hemoglobin A1C 5.7 % (4.5-5.6)
[2024-11-02] MEDS: THIAMINE HCL 100 MG TAB PO SCH (08:49)
[2024-11-02] MEDS: FOLIC ACID 1 MG TAB PO SCH (08:49)
--- NOTE | 2024-11-02 08:58 | CT Scan Report ---
RIGHT HAND CT WITHOUT CONTRAST CLINICAL HISTORY: ? abscess right index COMPARISON STUDY: Right second finger radiographs November 01, 2024. TECHNIQUE: Axial images of the right hand were obtained without IV contrast. Sagittal and coronal ref ormats were viewed. A dose lowering technique was utilized adhering to the principles of ALARA. FINDINGS: Alignment of the right hand is anatomic. 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 No fractures within the right hand are noted. There is exten sive soft tissue swelling of the distal aspect of the right second finger. There is no soft tissue ga s. Small lucencies within the distal tuft of the distal phalanx of the right second finger are noted. No additional sites of bony erosion are identified. Note is made of a 2.1 x 0.8 x 1.4 cm hypodense f ocus along the volar aspect of the distal phalanx of the right second finger. Although suboptimally a ssessed on unenhanced exam, this may represent an abscess. Phlegmon could appear similar. No addition al fluid collections are identified. IMPRESSION: 1. Extensive distal right second finger soft tissue swelling consistent with cellulitis. 2.1 x 0.8 x 1.4 cm hypodense focus along the volar aspect of the distal phalanx of the right second finger. This could represent an abscess or phlegmon. No soft tissue gas. 2. Erosion of the distal tuft of the distal phalanx of the right second finger consistent with acute osteomyelitis. ACT 112: Negative or not required by law. Electronically signed by: Marcello Dixon M.D. 11/02/2024 8:56 AM
[2024-11-02] MEDS: VANCOMYCIN 750 MG in SODIUM CHLORIDE 0.9% 250 ML IV SCH (09:12)
--- NOTE | 2024-11-02 10:27 | Orthopedic Consultation ---
Date of Service November 02, 2024 Assessment & Plan (1) Burn of right index finger: (2) Abscess of finger of right hand: Plan * Case/imaging reviewed and discussed with Dr Parr * Recommend surgical incision and drainage today. * Disposition: TBDCase/imaging reviewed and discussed with Dr Parr * Daily treatment: Physical Therapy/ Occupational Therapy per protocol * Weight bearing status: as tolerated * Pain control * Remainder care per primary team * Discussed with patient risks and benefits of surgery including pain, infection, bleeding, risk of anesthesia, prolonged healing time, incomplete relief of symptoms, and injury to surrounding tissue. History of Present Illness Reason for Consultation: Right finger abscess Requesting Physician: . Attending Physician: Jordi Alvares DO .Patient is a 63 y/o male with right finger infection. PMH including paranoid schizophrenia,not on medications (followed at [facility]), MDD, HLD . Presents to hospital with right index finger abscess. Current workup including . Orthopedics consulted for management recommendations. At time of exam patient notes he burned his finger on 10/24/24. Pt was seen in ED on 10/24/24 after he burned his finger on a hot [place] so he could leave work early because a female coworker made him upset. Pt states he then again more recently hit this finger while trying to remove a stump at home. Pt states he had been sticking the finger at home to evacuate pus. Pt was started on Keflex while in ED on 10/24/24. Pt was switched to Bactrim but was unable to pick that up until 10/31/24 and has only taken 3 doses. Allergies Allergy/AdvReac Type Severity Reaction Status Date / Time No Known Allergies Unverified 11/01/24 15:22 Home Medications Medication Instructions Recorded Confirmed Type sulfamethoxazole 800 1 tab PO Q12H #20 tabs 10/29/24 11/01/24 Rx mg-trimethoprim 160 mg tablet (Bactrim DS) Past Med/Surg History Problem List Weakness (Acute) Dizziness (Acute) Finger infection (Acute) Abscess of finger of right hand (Acute) Burn of right index finger (Acute) Medical History MDD (major depressive disorder) HLD (hyperlipidemia) Schizophrenia Social History Smoking Status: Never smoker Second Hand Exposure: No; Do You Dip or Chew Tobacco: No; Hx Alcohol Use: Yes Hx Substance Use: No Preferred Language: German Communication Ability: Effective Printer Slotter Feeder Required: No Beliefs That Will Affect Care: None Current Living Situation: Parent Current Living Situation Comment: Mother Other Information That Helps Us Care for You: No Feels Safe at Home: Yes Safety Concerns: Feels Safe At This Time Assistive Devices: None Review of Systems All systems reviewed & are unremarkable except as noted in HPI & below. Physical Exam * General: Alert and oriented, no acute distress * Constitutional: well-developed, well-nourished. * Respiratory: Normal respiratory effort, no distress * Gastrointestinal: No tenderness to palpation, no rigidity or guarding. * Skin: No rash or lesion. * Neurologic: Grossly normal * Musculoskeletal: Right index finger with distinct area of erythema from DIP distally. Some swelling and fluctuance noted to the dorsal aspect of digit up proximal to nail fold. Area is with some blood noted under the skin. Area is not open or draining. Diffuse swelling is noted to the tip of digit from DIP joint extending distally. Neurovascularly intact. Pt is able to flex at PIP but limited at DIP due to swelling and pain. Pt is able to fully extension. Results & Data Results & Data Laboratory Results . Laboratory Results - last 48 hr 11/01/24 11/01/24 11/01/24 12:18 12:22 12:27 WBC 11.58 H RBC 4.68 L Hgb 14.3 POC Hgb 15.6 Hct 42.7 POC Hct 46 MCV 91.2 MCH 30.6 MCHC 33.5 RDW Std Deviation 49.3 H RDW Coeff of Iker 14.8 H Plt Count 218 MPV 10.7 Immature Gran % (Auto) 1.5 Neut % (Auto) 76.1 Lymph % (Auto) 16.3 [place] % (Auto) 0.9 Eos % (Auto) 2.7 Baso % (Auto) 2.5 Neut # (Auto) 8.82 H Lymph # (Auto) 1.89 [place] # (Auto) 0.10 L Eos # (Auto) 0.31 Baso # (Auto) 0.29 H Immature Gran # (Auto) 0.17 PT 10.3 INR 0.9 APTT 30 PTT Ratio 1.1 POC Sodium 139 Sodium 135 L POC Potassium 4.3 Potassium 4.2 POC Chloride 102 Chloride 103 Carbon Dioxide 26 POC Total CO2 23 L Anion Gap 6 POC Anion Gap 19.0 POC BUN 13 BUN 13 Creatinine 1.02 POC Creatinine 1.2 Est Cr Clr Drug Dosing 72.3 eGFR 83.62 BUN/Creatinine Ratio 12.7 Glucose 109 H POC Glucose 103 H POC Glucose (other) 116 H Estimat Average Glucose Hemoglobin A1c Lactate Calcium 9.7 POC Ioniz Calcium Pat 1.21 Phosphorus Magnesium 1.9 Total Bilirubin 0.5 AST 20 ALT 15 Alkaline Phosphatase 124 H Total Creatine Kinase Troponin I High Sens 4.6 Total Protein 8.0 Albumin 4.5 Globulin 3.5 Albumin/Globulin Ratio 1.3 Triglycerides Cholesterol LDL Cholesterol, Calc VLDL Cholesterol, Calc HDL Cholesterol Cholesterol/HDL Ratio Urine Color Urine Appearance Urine pH Ur Specific [place] Urine Protein Urine Glucose (UA) Urine Ketones Urine Blood Urine Nitrite Urine Bilirubin Urine Urobilinogen Ur Leukocyte Esterase Urine Comment Urine Opiates Screen Ur Methadone, Qual Urine Fentanyl Screen Urine Barbiturates Ur Phencyclidine (PCP) U Amphetamin/Meth Scrn MDMA (Ecstasy) Screen U Benzodiazepines Scrn Ur Cocaine Metabolite U Marijuana (THC) Screen Ethyl Alcohol mg/dL 11/01/24 11/01/24 11/02/24 14:07 17:11 00:47 WBC RBC Hgb POC Hgb Hct POC Hct MCV MCH MCHC RDW Std Deviation RDW Coeff of Iker Plt Count MPV Immature Gran % (Auto) Neut % (Auto) Lymph % (Auto) [place] % (Auto) Eos % (Auto) Baso % (Auto) Neut # (Auto) Lymph # (Auto) [place] # (Auto) Eos # (Auto) Baso # (Auto) Immature Gran # (Auto) PT INR APTT PTT Ratio POC Sodium Sodium POC Potassium Potassium POC Chloride Chloride Carbon Dioxide POC Total CO2 Anion Gap POC Anion Gap POC BUN BUN Creatinine POC Creatinine Est Cr Clr Drug Dosing eGFR BUN/Creatinine Ratio Glucose POC Glucose POC Glucose (other) Estimat Average Glucose Hemoglobin A1c Lactate 1.3 Calcium POC Ioniz Calcium Pat Phosphorus Magnesium Total Bilirubin AST ALT Alkaline Phosphatase Total Creatine Kinase 115 Troponin I High Sens Total Protein Albumin Globulin Albumin/Globulin Ratio Triglycerides Cholesterol LDL Cholesterol, Calc VLDL Cholesterol, Calc HDL Cholesterol Cholesterol/HDL Ratio Urine Color Yellow Urine Appearance Clear Urine pH 7.0 Ur Specific [place] > 1.045 H Urine Protein Negative Urine Glucose (UA) Negative Urine Ketones Trace H Urine Blood Negative Urine Nitrite Negative Urine Bilirubin Negative Urine Urobilinogen Negative Ur Leukocyte Esterase Negative Urine Comment Urine Opiates Screen Neg Ur Methadone, Qual Neg Urine Fentanyl Screen Neg Urine Barbiturates Neg Ur Phencyclidine (PCP) Neg U Amphetamin/Meth Scrn Neg MDMA (Ecstasy) Screen Neg U Benzodiazepines Scrn Neg Ur Cocaine Metabolite Neg U Marijuana (THC) Screen Neg Ethyl Alcohol mg/dL < 10.0 11/02/24 03:59 WBC 15.20 H RBC 4.54 L Hgb 14.0 POC Hgb Hct 41.1 L POC Hct MCV 90.5 MCH 30.8 MCHC 34.1 RDW Std Deviation 48.9 H RDW Coeff of Iker 14.8 H Plt Count 166 MPV 10.3 Immature Gran % (Auto) Neut % (Auto) Lymph % (Auto) [place] % (Auto) Eos % (Auto) Baso % (Auto) Neut # (Auto) Lymph # (Auto) [place] # (Auto) Eos # (Auto) Baso # (Auto) Immature Gran # (Auto) PT INR APTT PTT Ratio POC Sodium Sodium 135 L POC Potassium Potassium 4.0 POC Chloride Chloride 103 Carbon Dioxide 26 POC Total CO2 Anion Gap 6 POC Anion Gap POC BUN BUN 13 Creatinine 1.14 POC Creatinine Est Cr Clr Drug Dosing 64.7 eGFR 73.17 BUN/Creatinine Ratio 11.4 Glucose 97 POC Glucose POC Glucose (other) Estimat Average Glucose 117 Hemoglobin A1c 5.7 H Lactate Calcium 8.8 POC Ioniz Calcium Pat Phosphorus 2.9 Magnesium 2.1 Total Bilirubin AST ALT Alkaline Phosphatase Total Creatine Kinase Troponin I High Sens Total Protein Albumin Globulin Albumin/Globulin Ratio Triglycerides 79 Cholesterol 141 LDL Cholesterol, Calc 85 VLDL Cholesterol, Calc 16 HDL Cholesterol 40 Cholesterol/HDL Ratio 3.5 Urine Color Urine Appearance Urine pH Ur Specific [place] Urine Protein Urine Glucose (UA) Urine Ketones Urine Blood Urine Nitrite Urine Bilirubin Urine Urobilinogen Ur Leukocyte Esterase Urine Comment Urine Opiates Screen Ur Methadone, Qual Urine Fentanyl Screen Urine Barbiturates Ur Phencyclidine (PCP) U Amphetamin/Meth Scrn MDMA (Ecstasy) Screen U Benzodiazepines Scrn Ur Cocaine Metabolite U Marijuana (THC) Screen Ethyl Alcohol mg/dL Diagnostic Findings Head CT 11/01/24 12:[address] OF THE BRAIN; CT ANGIOGRAM OF THE BRAIN; CT ANGIOGRAM OF THE NECK CLINICAL HISTORY: Neurological deficit. Stroke like symptoms. Right-sided weakness. Dizziness. COMPARISON STUDY: CT of the brain dated 02/04/2010 TECHNIQUE: Unenhanced axial CT scan of the brain is performed. Subsequently, following the IV administration of 120 of Optiray 320, CT angiogram of the head and neck was performed from the aortic arch to the vertex. Images are reviewed in the axial, sagittal, and coronal planes. 3-D MIPS images are created and assessed. IV contrast was administered without complication. All measurements were calculated based on NASCET criteria. A dose lowering technique was utilized adhering to the principles of ALARA. CT DOSE: 1143.59 mGy.cm FINDINGS: Brain parenchyma: The brain parenchyma is normal in appearance. There is no hemorrhage, mass effect, or evidence of acute territorial ischemia by CT criteria. There is no evidence of enhancing mass lesion on the angiogram phase images. The ventricles, sulci, and cisterns are normal in configuration. Koch- white matter differentiation is preserved. No extra-axial fluid collection is seen. Thoracic aorta: Visualized portions of the thoracic aorta are normal in caliber. The aortic arch demonstrates standard 3-vessel anatomy. Right carotid arterial system: The right common carotid artery is widely patent, as are the right internal and external carotid arteries. Mild calcified plaque is seen in the carotid bulb. Left carotid arterial system: The left common carotid artery is widely patent, as are the left internal and external carotid arteries. Mild calcified plaque is seen in the carotid bulb. Vertebral arteries: Widely patent bilaterally no definite left sided dominance. Subclavian arteries: Widely patent bilaterally. Intracranial vasculature: There is atherosclerotic calcification of the cavernous carotid arteries. The internal carotid arteries are patent at the skull base, as are the anterior and middle cerebral arteries bilaterally. The vertebrobasilar system and posterior cerebral arteries are widely patent. The left vertebral artery is dominant. There is origin of the left posterior cerebral artery. A posterior communicating artery is seen on the right. There is no aneurysm, high-grade stenosis, or focal vessel cut off seen throughout the intracranial circulation. Jugular veins: Patent bilaterally. Dural sinuses: Patent. Lung apices: Partially visualized upper lobe lung parenchyma appears clear. Soft tissues: The visualized pharyngeal soft tissues are normal in appearance noting angiographic phase technique. The oropharyngeal airway appears widely patent. The salivary and thyroid glands are normal in appearance. No cervical lymphadenopathy is seen. Skeletal structures: The skeletal structures are osteopenic. The calvarium appears intact. The cervical spine is maintained noting multilevel spondylosis. Orbits: The bony orbits are intact. Orbital contents are normal as visualized. Sinuses and mastoids: There is trace because of thickening within the maxillary antra. The paranasal sinuses are otherwise clear. The mastoid air cells are well pneumatized. IMPRESSION: 1. There is no hemorrhage, mass effect, or evidence of acute territorial ischemia by CT criteria. 2. Unremarkable CT angiogram of the brain. 3. Unremarkable CT angiogram of the neck. ACT 112: Negative or not required by law. Electronically signed by: Randy Soares M.D. 11/01/2024 1:07 PM Head CTA 11/01/24 12:[address] OF THE BRAIN; CT ANGIOGRAM OF THE BRAIN; CT ANGIOGRAM OF THE NECK CLINICAL HISTORY: Neurological deficit. Stroke like symptoms. Right-sided weakness. Dizziness. COMPARISON STUDY: CT of the brain dated 02/04/2010 TECHNIQUE: Unenhanced axial CT scan of the brain is performed. Subsequently, following the IV administration of 120 of Optiray 320, CT angiogram of the head and neck was performed from the aortic arch to the vertex. Images are reviewed in the axial, sagittal, and coronal planes. 3-D MIPS images are created and assessed. IV contrast was administered without complication. All measurements were calculated based on NASCET criteria. A dose lowering technique was utilized adhering to the principles of ALARA. CT DOSE: 1143.59 mGy.cm FINDINGS: Brain parenchyma: The brain parenchyma is normal in appearance. There is no hemorrhage, mass effect, or evidence of acute territorial ischemia by CT criteria. There is no evidence of enhancing mass lesion on the angiogram phase images. The ventricles, sulci, and cisterns are normal in configuration. Koch- white matter differentiation is preserved. No extra-axial fluid collection is seen. Thoracic aorta: Visualized portions of the thoracic aorta are normal in caliber. The aortic arch demonstrates standard 3-vessel anatomy. Right carotid arterial system: The right common carotid artery is widely patent, as are the right internal and external carotid arteries. Mild calcified plaque is seen in the carotid bulb. Left carotid arterial system: The left common carotid artery is widely patent, as are the left internal and external carotid arteries. Mild calcified plaque is seen in the carotid bulb. Vertebral arteries: Widely patent bilaterally no definite left sided dominance. Subclavian arteries: Widely patent bilaterally. Intracranial vasculature: There is atherosclerotic calcification of the cavernous carotid arteries. The internal carotid arteries are patent at the skull base, as are the anterior and middle cerebral arteries bilaterally. The ve rtebrobasilar system and posterior cerebral arteries are widely patent. The left vertebral artery is dominant. There is origin of the left posterior cerebral artery. A posterior communicating artery is seen on the right. There is no aneurysm, high-grade stenosis, or focal vessel cut off seen throughout the intracranial circulation. Jugular veins: Patent bilaterally. Dural sinuses: Patent. Lung apices: Partially visualized upper lobe lung parenchyma appears clear. Soft tissues: The visualized pharyngeal soft tissues are normal in appearance noting angiographic phase technique. The oropharyngeal airway appears widely patent. The salivary and thyroid glands are normal in appearance. No cervical lymphadenopathy is seen. Skeletal structures: The skeletal structures are osteopenic. The calvarium appears intact. The cervical spine is maintained noting multilevel spondylosis. Orbits: The bony orbits are intact. Orbital contents are normal as visualized. Sinuses and mastoids: There is trace because of thickening within the maxillary antra. The paranasal sinuses are otherwise clear. The mastoid air cells are well pneumatized. IMPRESSION: 1. There is no hemorrhage, mass effect, or evidence of acute territorial ischemia by CT criteria. 2. Unremarkable CT angiogram of the brain. 3. Unremarkable CT angiogram of the neck. ACT 112: Negative or not required by law. Electronically signed by: Randy Soares M.D. 11/01/2024 1:07 PM Neck CTA 11/01/24 12:[address] OF THE BRAIN; CT ANGIOGRAM OF THE BRAIN; CT ANGIOGRAM OF THE NECK CLINICAL HISTORY: Neurological deficit. Stroke like symptoms. Right-sided weakness. Dizziness. COMPARISON STUDY: CT of the brain dated 02/04/2010 TECHNIQUE: Unenhanced axial CT scan of the brain is performed. Subsequently, following the IV administration of 120 of Optiray 320, CT angiogram of the head and neck was performed from the aortic arch to the vertex. Images are reviewed in the axial, sagittal, and coronal planes. 3-D MIPS images are created and assessed. IV contrast was administered without complication. All measurements were calculated based on NASCET criteria. A dose lowering technique was utilized adhering to the principles of ALARA. CT DOSE: 1143.59 mGy.cm FINDINGS: Brain parenchyma: The brain parenchyma is normal in appearance. There is no hemorrhage, mass effect, or evidence of acute territorial ischemia by CT criteria. There is no evidence of enhancing mass lesion on the angiogram phase images. The ventricles, sulci, and cisterns are normal in configuration. Koch- white matter differentiation is preserved. No extra-axial fluid collection is seen. Thoracic aorta: Visualized portions of the thoracic aorta are normal in caliber. The aortic arch demonstrates standard 3-vessel anatomy. Right carotid arterial system: The right common carotid artery is widely patent, as are the right internal and external carotid arteries. Mild calcified plaque is seen in the carotid bulb. Left carotid arterial system: The left common carotid artery is widely patent, as are the left internal and external carotid arteries. Mild calcified plaque is seen in the carotid bulb. Vertebral arteries: Widely patent bilaterally no definite left sided dominance. Subclavian arteries: Widely patent bilaterally. Intracranial vasculature: There is atherosclerotic calcification of the cavernous carotid arteries. The internal carotid arteries are patent at the skull base, as are the anterior and middle cerebral arteries bilaterally. The vertebrobasilar system and posterior cerebral arteries are widely patent. The left vertebral artery is dominant. There is origin of the left posterior cerebral artery. A posterior communicating artery is seen on the right. There is no aneurysm, high-grade stenosis, or focal vessel cut off seen throughout the intracranial circulation. Jugular veins: Patent bilaterally. Dural sinuses: Patent. Lung apices: Partially visualized upper lobe lung parenchyma appears clear. Soft tissues: The visualized pharyngeal soft tissues are normal in appearance noting angiographic phase technique. The oropharyngeal airway appears widely patent. The salivary and thyroid glands are normal in appearance. No cervical lymphadenopathy is seen. Skeletal structures: The skeletal structures are osteopenic. The calvarium appears intact. The cervical spine is maintained noting multilevel spondylosis. Orbits: The bony orbits are intact. Orbital contents are normal as visualized. Sinuses and mastoids: There is trace because of thickening within the maxillary antra. The paranasal sinuses are otherwise clear. The mastoid air cells are well pneumatized. IMPRESSION: 1. There is no hemorrhage, mass effect, or evidence of acute territorial ischemia by CT criteria. 2. Unremarkable CT angiogram of the brain. 3. Unremarkable CT angiogram of the neck. ACT 112: Negative or not required by law. Electronically signed by: Randy Soares M.D. 11/01/2024 1:07 PM Finger X-Ray 11/01/24 12:35 RIGHT THIRD FINGER 3 VIEWS CLINICAL HISTORY: Third finger infection. FINDINGS: 3 views of the right third finger are obtained. No prior studies are available for comparison at the time of dictation. The skeletal structures are osteopenic. No fracture or dislocation is seen in the third digit. There is only mild arthritic change. Moderate to severe arthritic change is noted at the first carpometacarpal joint. Soft tissue swelling is seen in the second finger, greatest distally. No soft tissue gas or radiodense foreign body is identified. IMPRESSION: Soft tissue swelling with no acute bony abnormality identified. Electronically signed by: Randy Soares M.D. 11/01/2024 1:[address] 11/02/24 06:[address] WITHOUT CONTRAST CLINICAL HISTORY: ? abscess right index COMPARISON STUDY: Right second finger radiographs November 01, 2024. TECHNIQUE: Axial images of the right hand were obtained without IV contrast. Sagittal and coronal reformats were viewed. A dose lowering technique was utilized adhering to the principles of ALARA. FINDINGS: Alignment of the right hand is anatomic. 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 No fractures within the right hand are noted. There is extensive soft tissue swelling of the distal aspect of the right second finger. There is no soft tissue gas. Small lucencies within the distal tuft of the distal phalanx of the right second finger are noted. No additional sites of bony erosion are identified. Note is made of a 2.1 x 0.8 x 1.4 cm hypodense focus along the volar aspect of the distal phalanx of the right second finger. Although suboptimally assessed on unenhanced exam, this may represent an abscess. Phlegmon could appear similar. No additional fluid collections are identified. IMPRESSION: 1. Extensive distal right second finger soft tissue swelling consistent with cellulitis. 2.1 x 0.8 x 1.4 cm hypodense focus along the volar aspect of the distal phalanx of the right second finger. This could represent an abscess or phlegmon. No soft tissue gas. 2. Erosion of the distal tuft of the distal phalanx of the right second finger consistent with acute osteomyelitis. ACT 112: Negative or not required by law. Electronically signed by: Marcello Dixon M.D. 11/02/2024 8:56 AM . PG Care Time/CCT Total # of Minutes Spent Total Time Spent with Patient: Total time spent is greater than 50% in coordination of care (as documented) at patient's floor/unit and/or counseling patient: Coding Level of Care Code 49748 IN/OBS CONSULT LVL 4,60M Diagnoses Burn of right index finger T23.021A Abscess of finger of right hand L02.511
--- NOTE | 2024-11-02 10:32 | Pharmacy Report ---
Pharmacy PK ABX Note - Date of Service November 02, 2024 - Assessment and Plan Assessment 63 year old M receiving vancomycin/ceftriaxone for treatment of right finger abscess Pertinent microbiologic data includes: 10/24 finger culture growing MRSA, Initially on cephalexin, did not start bactrim until 10/31. Ortho consulted for possible I&D. Plan Vancomycin * Loading dose: 1750 mg IV x 1 * Maintenance dose: 750 mg IV every 12 hours * Regimen is predicted to achieve target AUC/RAYNE of 400-600 mg/L.hr * Random level ordered for 11/03 with AM labs Pharmacy will continue to follow and will adjust dose/frequency as necessary. Thank you. Pharmacy has transitioned to AUC monitoring for vancomycin. AUC/RAYNE is the preferred PK/PD target and is associated with decreased risk of nephrotoxicity compared to traditional trough targets.
[2024-11-02] MEDS ORDERED: ACETAMINOPHEN 500 MG TAB PO PRN (10:45)
[2024-11-02] MEDS: IBUPROFEN 800 MG TAB PO PRN (11:08)
--- NOTE | 2024-11-02 13:10 | Anesthesiology Consultation ---
Date of Service November 02, 2024 Assessment & Plan Chart Review Chart Review: Acceptable Risk for Surgery and Patient NOT seen in Pre Admission Testing Consults Requested none ASA ASA3 Proposed Anesthesia Anesthesia Type: MAC Risk / Benefits Reviewed With: PT / POA / Parent / Guardian, Accepts Plan and Informed Consent Obtained Additional Comments: Patient is oriented to person, place and time. He is actively suicidal and on suicide watch. He appears to understand however when asked what procedure he is having done, he states he is "going to heaven" and that continues on about his . I question his ability to reason and therefore deem him non-consentable. He has a mother however she was unable to be reached after multiple contacts. Dr. Parr deems this urgent and therefore MD-to-MD consent obtained between myself (Dr. Jauregui) and Dr. Vargas. Surgeon aware. History Surgery Operation Date: 11/02/24 17:25 Proposed Procedures p Right Index Finger Incision and Drainage - Edmund Parr, DO Height/Weight Height: 5 ft 9 in Weight: 67.2 kg Allergies Allergy/AdvReac Type Severity Reaction Status Date / Time No Known Allergies Unverified 11/01/24 15:22 Medications Home Medications Medication Instructions Recorded Confirmed Last Taken sulfamethoxazole 800 1 tab PO Q12H #20 tabs 10/29/24 11/01/24 Unknown mg-trimethoprim 160 mg tablet (Bactrim DS) Active Medications Generic Name Dose Route Start Last Admin Trade Name Freq PRN Reason Stop Dose Admin Enoxaparin Sodium 40 mg 11/01/24 21:49 11/01/24 23:16 Enoxaparin Inj 40 Mg/0.4 Ml Syr SQ 12/01/24 21:48 40 mg Q24H STEFAN Administration Folic Acid 1 mg 11/02/24 09:00 11/02/24 08:49 Folic Acid 1 Mg Tab PO 12/02/24 08:59 1 mg QAM STEFAN Administration Vancomycin HCl 750 mg/ Sodium 265 mls @ 200 mls/hr 11/02/24 09:00 11/02/24 10:59 Chloride IV 11/09/24 08:59 Infused Q12H STEFAN Infusion Ibuprofen 800 mg 11/02/24 10:44 11/02/24 11:08 Ibuprofen 800 Mg Tab PO 12/02/24 10:44 800 mg Q8H PRN Administration pain Olanzapine 2.5 mg 11/01/24 21:49 11/01/24 23:16 Olanzapine 2.5 Mg Tab PO 12/01/24 21:48 2.5 mg HS STEFAN Administration Thiamine HCl 100 mg 11/02/24 09:00 11/02/24 08:49 Thiamine Hcl 100 Mg Tab PO 12/02/24 08:59 100 mg QAM STEFAN Administration NPO Date Last Intake of Fluids: 11/02/24 Time Last Intake of Fluids: 09:00 Last Intake of Fluids Comment: 1000 nutrition drink Date Last Intake of Solids: 11/02/24 Time Last Intake of Solids: 09:00 Last Intake of Solids Comment: breakfast this am Past Medical History Medical History MDD (major depressive disorder) HLD (hyperlipidemia) Schizophrenia Past Anesthesia History No Hx of Anesthesia Complications and No Family Hx of Anesthesia Complications Social History Smoking Status: Never smoker Do You Dip or Chew Tobacco: No Hx Alcohol Use: Yes alcohol intake frequency: a few times a month Hx Substance Use: No substance use type: does not use Physical Exam Vital Signs Last Vital Signs Temp 36.7 C 11/02/24 12:47 Pulse 57 L 11/02/24 12:47 Resp 20 11/02/24 12:47 BP 150/84 H 11/02/24 12:47 Pulse Ox 100 11/02/24 12:47 O2 Del Method Room Air 11/02/24 12:47 ENMT Mouth: no TMJ abnormality Thyromental Distance: > or= 3.5 Finger Breadths Mallampati Class: II Neck normal visual inspection and trachea midline; neck extension not limited Respiratory normal respiratory effort Auscultation: lungs clear to auscultation bilaterally Cardiovascular Rate/Rhythm: regular rate and regular rhythm Heart Sounds: no murmur Musculoskeletal Spine: normal cervical ROM Extremities: full ROM of extremities Neurologic moves all extremities Psychiatric Orientation: alert and oriented x 3 Testing Laboratory Results 11/02/24 03:59 11/02/24 03:59 PT 10.3 Seconds (9.0-12.0) 11/01/24 12:18 INR 0.9 (0.9-1.1) 11/01/24 12:18 APTT 30 Seconds (21-31) 11/01/24 12:18 Hemoglobin A1c 5.7 % (4.5-5.6) H 11/02/24 03:59 Urine Color Yellow 11/02/24 00:47 Urine Appearance Clear (Clear) 11/02/24 00:47 Urine pH 7.0 (4.5-7.5) 11/02/24 00:47 Ur Specific [place] > 1.045 (1.000-1.030) H 11/02/24 00:47 Urine Protein Negative (Negative) 11/02/24 00:47 Urine Glucose (UA) Negative (Negative) 11/02/24 00:47 Urine Ketones Trace (Negative) H 11/02/24 00:47 Urine Nitrite Negative (Negative) 11/02/24 00:47 Ur Leukocyte Esterase Negative (Negative) 11/02/24 00:47
[2024-11-02] MEDS ORDERED: DexMEDEtomidine HCL IV 100 MCG/ML VIAL IV ONE (13:14)
[2024-11-02] MEDS ORDERED: PROPOFOL IV EMULSION 10 MG/ML 20 ML VIAL IV ONE ×2 (13:14→14:46)
[2024-11-02] MEDS ORDERED: MIDAZOLAM HCL 1 MG/ML 2ML VIAL ONE (13:14)
[2024-11-02] MEDS ORDERED: LIDOCAINE 2% 2 ML VIAL/AMP(20MG/ML) INFIL ONE (13:14)
[2024-11-02] MEDS ORDERED: ONDANSETRON INJ 2 MG/ML 2 ML VIAL IV PRN ×2 (13:16→15:31)
[2024-11-02] MEDS ORDERED: ATROPINE SULFATE 0.1 MG/ML 10ML SYR IV PRN (13:16)
--- NOTE | 2024-11-02 13:27 | History & Physical Bridge Note ---
Date of Service November 02, 2024 History & Physical Bridge Note I have examined the patient, reviewed the History & Physical and in the interval since the performance of the History & Physical I have noted the following changes of clinical significance: no changes noted
[2024-11-02] MEDS: BUPIVACAINE 0.5 % 5 MG/1 ML MPF 30ML VIAL ONE (14:36)
[2024-11-02] MEDS: BUPIVACAINE 0.25% PF 30 ML VIAL ONE (14:36)
--- NOTE | 2024-11-02 14:40 | Communication Note ---
Date of Service: November 02, 2024 Attempted to evaluate patient. Patient was in OR for I&D of finger wound. Will reattempt evaluation after procedure.
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
--- NOTE | 2024-11-02 14:48 | Operative Report ---
PG Post Operative Report Pre & Post Diagnosis Operation Date: 11/02/24 17:25 Pre-Op Diagnosis: Abscess right index finger Post-Op Diagnosis: Abscess right index finger I identified the patient and participated in the time-out.: Yes Procedure Operation Date: 11/02/24 17:25 Actual Procedures p Right Index Finger Incision and Drainage(Right) - Edmund Parr DO Surgeon Edmund Parr DO Computer Processing Scheduler Jorge Case PA-C Estimated Blood Loss 5 Findings Consistent with Post-Op Diagnosis Specimens Culture swab Description of Procedure On November 02, 2024 Adriel was brought in from his hospital room to the preoperative holding area. The operative extremity identified and signed. He was taken back to the operative room and left on the litter. He is given basic sedation. The right hand was prepped and draped sterile fashion. A timeout was done. The patient and the operative extremity was properly identified. A digital block was given using 10 cc of quarter percent Marcaine. A transverse incision was made on the radial aspect along the paronychia of the right index finger. There was a large abscess that was evacuated. Culture swabs were taken. The abscess site was then irrigated with normal saline solution. Once everything was irrigated to 4-0 nylon sutures were placed to reapproximate the incision site. He was then placed in a soft dressing. He was then taken to the postanesthesia care unit in stable condition. He tolerated the procedure well. Jorge Case PA-C, was present for the entire procedure. He was critical for patient positioning, prepping, draping, retraction exposure, wound closure and application of sterile dressing. I attest to the content of the Intraoperative Record and any orders documented therein. Any exceptions are noted below.
[2024-11-02] MEDS ORDERED: METOCLOPRAMIDE HCL INJ 5 MG/ML 2 ML VIAL IV PRN (15:31)
[2024-11-02] MEDS ORDERED: MAGNESIUM HYDROXIDE SUSP 30 ML UDC PO PRN (15:31)
--- NOTE | 2024-11-02 15:38 | Anesthesiology Progress Note ---
Date of Service November 02, 2024 Anesthesia Post Procedure Vital Signs Vital Signs: Temp Pulse Pulse Pulse Resp BP BP 11/02/24 15:31 37 C 58 L 18 125/77 11/02/24 15:10 36.4 C L 62 19 121/75 11/02/24 15:00 70 19 107/70 11/02/24 14:50 61 16 92/57 L 11/02/24 14:44 36.5 C 61 16 90/58 L 11/02/24 12:47 36.7 C 57 L 20 150/84 H 11/02/24 08:47 36.7 C 72 18 11/02/24 08:13 71 20 11/01/24 23:30 36.5 C 65 16 11/01/24 21:44 11/01/24 21:33 64 11/01/24 21:30 62 18 135/85 11/01/24 21:00 59 L 19 147/84 H 11/01/24 20:00 67 21 11/01/24 19:30 58 L 27 H 140/85 11/01/24 17:53 11/01/24 17:43 36.9 C 65 18 11/01/24 17:41 72 11/01/24 17:00 86 17 135/96 11/01/24 16:51 65 22 11/01/24 16:30 61 19 154/100 H 11/01/24 16:15 75 21 142/100 H 11/01/24 16:02 68 18 11/01/24 15:45 61 16 BP Pulse Ox O2 Del Method O2 Flow Rate 11/02/24 15:31 98 Room Air 11/02/24 15:10 100 Room Air 11/02/24 15:00 99 Room Air 11/02/24 14:50 99 Oxymask 5 11/02/24 14:44 100 Oxymask 5 11/02/24 12:47 100 Room Air 11/02/24 08:47 136/74 98 Room Air 11/02/24 08:13 101/69 96 Room Air 11/01/24 23:30 125/77 95 Room Air 11/01/24 21:44 95 Room Air 11/01/24 21:33 11/01/24 21:30 93 Room Air 11/01/24 21:00 96 Room Air 11/01/24 20:00 96 Room Air 11/01/24 19:30 94 Room Air 11/01/24 17:53 126/80 11/01/24 17:43 95 Room Air 11/01/24 17:41 11/01/24 17:00 96 11/01/24 16:51 96 11/01/24 16:30 95 11/01/24 16:15 95 11/01/24 16:02 95 Room Air 11/01/24 15:45 94 Pain Intensity Right Finger: Pain Intensity: 5 Transfer of Care Handoff Completed per policy Notes Mental Status: alert / awake / arousable Patient Amnestic to Procedure: Yes Nausea / Vomiting: adequately controlled Pain: adequately controlled Airway Patency, RR, SpO2: stable & adequate BP & HR: stable & adequate Hydration State: stable & adequate Anesthetic Complications: no major complications apparent
[2024-11-02] MEDS: SODIUM CHLORIDE 0.9% 1,000 ML IV SCH (15:56)
[2024-11-02] MEDS ORDERED: cefTRIAXone SODIUM 2,000 MG/50 ML BAG IV SCH (18:00)
[2024-11-02] MEDS: DOCUSATE SODIUM 100 MG CAP PO SCH (20:50)
[2024-11-03] MEDS: VANCOMYCIN LEVEL ONE (09:28)
--- NOTE | 2024-11-03 09:47 | Pharmacy Report ---
Pharmacy PK ABX Note - Date of Service November 03, 2024 - Assessment and Plan Assessment 11/03: * Vancomycin random level this AM was 6 mcg/ml - current vancomycin regimen associated with AUC/RAYNE <400 therefore will increase dosing to 1gm iv q 12hours * Preliminary finger cx with staph aureus 11/02: * 63 year old M receiving vancomycin/ceftriaxone for treatment of right finger abscess Pertinent microbiologic data includes: 10/24 finger culture growing MRSA, Initially on cephalexin, did not start bactrim until 10/31. Ortho consulted for possible I&D. Plan Vancomycin * Will increase vancomycin to 1000 mg iv q 12 hours * Awaiting finalized cultures Pharmacy will continue to follow and will adjust dose/frequency as necessary. Thank you. Pharmacy has transitioned to AUC monitoring for vancomycin. AUC/RAYNE is the preferred PK/PD target and is associated with decreased risk of nephrotoxicity compared to traditional trough targets.
[2024-11-03] MEDS: MULTIVITAMIN TAB PO SCH (10:54)
--- NOTE | 2024-11-03 11:26 | Orthopedic Progress Note ---
Date of Service November 03, 2024 Assessment & Plan (1) Abscess of finger of right hand: * Continue Current Treatment * S/p right 2nd finger I&D in OR * Weight bearing status: As tolerated * Continue IV abx. OR cultures pending, tailor per results * Dressing change PRN, recommend dry dressing and gentle compressive wrap ([place]) * Daily treatment: Physical Therapy/ Occupational Therapy per protocol * Pain control * DVT prophylaxis, ok to resume from ortho standpoint * Disposition: TBD * Office/hospital f/u 2 weeks for progress check and staple/suture removal * Remainder care per primary team Subjective . Active Problems: S/p R 2nd finger I&D POD 1 63 y/o male s/p right 2nd finger I&D. Doing well overall, pain managed and improved function. Not very interested in discussing his finger, very easily distracted by other conversation topics. Denies fever/chills, chest pain/SOB, nausea/vomiting. Otherwise no complaints. Review of Systems All systems reviewed & are unremarkable except as noted in HPI & below. Physical Exam . * General: Alert and oriented, no acute distress * Constitutional: well-developed, well-nourished. * Respiratory: Normal respiratory effort, no distress * Gastrointestinal: No tenderness to palpation, no rigidity or guarding. * Skin: No rash or lesion. * Neurologic: Grossly normal * Musculoskeletal: Right 2nd finger dressing intact, not removed for exam. Minimal tenderness of second finger at surgical site. Otherwise no tenderness throughout hand or forearm. Moves finger without complaint of pain. Sensation intact throughout radial/median/ulnar nerve distributions. Brisk capillary refill. Results & Data Results & Data Laboratory Results . Diagnostic Findings . PG Care Time/CCT Total # of Minutes Spent Total Time Spent with Patient: Total time spent is greater than 50% in coordination of care (as documented) at patient's floor/unit and/or counseling patient: Coding Level of Care Code 62848 Post Operative Follow-Up Diagnoses Abscess of finger of right hand L02.511
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
[2024-11-03] MEDS: VANCOMYCIN HCL 1,000 MG in SODIUM CHLORIDE 0.9% 250 ML IV SCH (16:26)
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
--- NOTE | 2024-11-04 08:38 | Orthopedic Progress Note ---
Date of Service November 04, 2024 Assessment & Plan (1) Abscess of finger of right hand: * Continue Current Treatment * S/p right 2nd finger I&D in OR * Weight bearing status: As tolerated * Continue IV abx. OR cultures pending, tailor per results * Will add on Betadine soaks. Please remove dressing and replace following * Dressing change PRN, recommend dry dressing and gentle compressive wrap (Coban) * Daily treatment: Physical Therapy/ Occupational Therapy per protocol * Pain control * DVT prophylaxis, ok to resume from ortho standpoint * Disposition: TBD * Office/hospital f/u 2 weeks for progress check and staple/suture removal * Remainder care per primary team Subjective Active Problems: S/p R 2nd finger I&D POD 2 63 y/o male s/p right 2nd finger I&D. Doing well overall, pain managed and improved function. Denies fever/chills, chest pain/SOB, nausea/vomiting. Otherwise no complaints. Review of Systems All systems reviewed & are unremarkable except as noted in HPI & below. Physical Exam * General: Alert and oriented, no acute distress * Constitutional: well-developed, well-nourished. * Respiratory: Normal respiratory effort, no distress * Gastrointestinal: No tenderness to palpation, no rigidity or guarding. * Skin: No rash or lesion. * Neurologic: Grossly normal * Musculoskeletal: Right 2nd finger dressing intact, removed for exam and changed following. Small volume of purulent fluid expressible from surgical site. Moderate tenderness of second finger at surgical site. Otherwise no tenderness throughout hand or forearm. Moves finger without complaint of pain. Sensation intact throughout radial/median/ulnar nerve distributions. Brisk capillary refill. Results & Data Results & Data Laboratory Results . Diagnostic Findings . PG Care Time/CCT Total # of Minutes Spent Total Time Spent with Patient: Total time spent is greater than 50% in coordination of care (as documented) at patient's floor/unit and/or counseling patient: Coding Level of Care Code 62882 Post Operative Follow-Up Diagnoses Abscess of finger of right hand L02.511
[2024-11-04 10:31] LABS: Hematocrit (blood only) 38.9 % (42.0-52.0); Hemoglobin 13.4 g/dl (14.0-18.0); Mean Corpuscular Hemoglobin 31.7 pg (25.0-34.0); Mean Corpuscular Volume 92.0 fL (80.0-100.0); Platelet Count 175 K/uL (130-400); RDW Standard Deviation 49.1 fL (36.4-46.3); Red Blood Count 4.23 M/uL (4.70-6.10); White Blood Count 8.23 K/ul (4.8-10.8)
[2024-11-04 10:46] LABS: Anion Gap 6.0 (3-11); Blood Urea Nitrogen 11.0 mg/dl (6-23); Calcium 8.7 mg/dl (8.6-10.3); Carbon Dioxide 27.0 mmol/L (21-32); Chloride 104.0 mmol/L (98-107); Creatinine Clr Calc Pharmacy 80.1 ml/min; Glucose 97.0 mg/dl (70-99(Fasting)); Potassium 4.2 mmol/L (3.5-5.1); Sodium 137.0 mmol/L (136-145)
[2024-11-04 11:13] LABS: Immature Granulocytes # (auto) 0.08 K/uL (0.01-0.20); Immature Granulocytes % (auto) 1.0 %; RBC Morphology Unremarkable
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
[2024-11-04] MEDS: diphenhydrAMINE 50 MG/ML VIAL IV STA (22:26)
[2024-11-05 07:10] VITALS: BP 100/67; PULSE 72; RESP 18; TEMP 98.1; O2SAT 97
--- NOTE | 2024-11-05 08:18 | Orthopedic Progress Note ---
Date of Service November 05, 2024 Assessment & Plan (1) Abscess of finger of right hand: Plan * Continue Current Treatment * Disposition: tbd * Daily treatment: Physical Therapy/ Occupational Therapy per protocol * Weight bearing status: as tolerated. * Continue to monitor culture results. Continue antibiotics per sensitivities. * Continue soaks and change dressing as needed. Gauze and coban dressing. * Pain control * Office/hospital f/u 2 weeks for progress check and staple/suture removal * Remainder care per primary team * Stable for discharge from ortho standpoint, further planning per primary team Subjective . Active Problems: S/p right index finger I&D with Dr. Parr 11/02/24. POD 3 63 y/o male s/p right index finger I&D. Doing well overall, pain managed and improved function. Denies fever/chills, chest pain/SOB, nausea/vomiting. Pt does note a rash on his left arm and on his abdomen. Review of Systems All systems reviewed & are unremarkable except as noted in HPI & below. Physical Exam . * General: Alert and oriented, no acute distress * Constitutional: well-developed, well-nourished. * Respiratory: Normal respiratory effort, no distress * Gastrointestinal: No tenderness to palpation, no rigidity or guarding. * Skin: left arm and abdomen with raise urticarial rash or lesion. * Neurologic: Grossly normal * Musculoskeletal: Right index finger sutures in place. Minimal serous drainage and improved erythema and swelling. Pt is able to flex and extend. Results & Data Results & Data Laboratory Results Laboratory Results - last 24 hr 11/04/24 10:17 WBC 8.23 RBC 4.23 L Hgb 13.4 L Hct 38.9 L MCV 92.0 MCH 31.7 MCHC 34.4 RDW Std Deviation 49.1 H RDW Coeff of Iker 14.6 H Plt Count 175 MPV 10.3 Immature Gran % (Auto) 1.0 Neut % (Auto) 69.9 Lymph % (Auto) 18.6 [place] % (Auto) 0.7 Eos % (Auto) 8.3 Baso % (Auto) 1.5 Neut # (Auto) 5.76 Lymph # (Auto) 1.53 [place] # (Auto) 0.06 L Eos # (Auto) 0.68 H Baso # (Auto) 0.12 Immature Gran # (Auto) 0.08 RBC Morphology Unremarkable Sodium 137 Potassium 4.2 Chloride 104 Carbon Dioxide 27 Anion Gap 6 BUN 11 Creatinine 0.92 Est Cr Clr Drug Dosing 80.1 eGFR 94.64 BUN/Creatinine Ratio 12.0 Glucose 97 Calcium 8.7 Culture- MRSA Staph Aureus. Diagnostic Findings . PG Care Time/CCT Total # of Minutes Spent Total Time Spent with Patient: Total time spent is greater than 50% in coordination of care (as documented) at patient's floor/unit and/or counseling patient: Coding Level of Care Code 47205 Post Operative Follow-Up Diagnoses Abscess of finger of right hand L02.511
[2024-11-05] MEDS: ADVANCED PROBIOTIC 625 MG CAPSULE PO SCH (09:37)
[2024-11-05 10:25] LABS: Creatinine Clr Calc Pharmacy 74.5 ml/min
--- NOTE | 2024-11-05 11:21 | Hospitalist Progress Note ---
Date of Service November 05, 2024 Assessment & Plan (1) Abscess of finger of right hand: Plan: Right index finger abscess with associated acute osteomyelitis involving distal phalanx Appreciate orthopedic input and recommendation Status post right index finger incision and drainage on 11/02/2024 The wound culture is growing MRSA Maculopapular skin lesions to IV vancomycin 11/04, discontinued, was changed to clindamycin 11/04. Discussed with ID over the phone 11/05, patient needs 6 weeks IV antibiotic therapy with daptomycin for osteomyelitis, clindamycin will be full of side effects for long-term treatment. CPK level this admission noted. 115. Monitor CPK and labs weekly while on daptomycin. (2) Schizophrenia: Plan: Appreciate psychiatric input and recommendation No recommendation for any additional medications He has been cleared for discharge (3) Burn of right index finger: (4) Osteomyelitis of finger of right hand: (5) MDD (major depressive disorder): (6) Prediabetes: (7) Alcohol use: Admission and Anticipated Discharge Date Admission Date: November 02, 2024 Subjective The patient was seen and examined in medical floor He has been stable and the pain in the right index finger is minimal Still has swelling and finger is bandaged, no streaking erythema noted on the back of the hand. Denies any other symptoms Overnight he developed allergic reaction to vancomycin extensively in the trunk and including some extension into the limbs. Maculopapular lesions noted. Patient denies itching or pain or abdominal pain or shortness of breath. Physical Exam Physical Exam: Lying in the bed without any acute distress Constitutional: well developed, well nourished and + ill appearing Eyes: PERRL, conjunctivae normal, anicteric sclerae ENMT: external ear and nose normal, oropharynx normal Neck: trachea midline, no thyromegaly Respiratory: no respiratory distress Auscultation: lungs clear to auscultation bilaterally Cardiovascular: Rate/Rhythm: regular rate and regular rhythm; not tachycardic Heart Sounds: normal S1 and normal S2; no murmur Extremities: no edema Gastrointestinal (Abdomen): Inspection/Auscultation: normal bowel sounds; abdomen not distended Percussion/Palpation: abdomen soft; abdomen nontender Neurologic: normal touch/pain/proprioception, moves all extremities and + focal motor deficit Lymphatic: no cervical or axillary lymphadenopathy Results & Data Results & Data Vital Signs (Past 12 Hours) Vital Signs Temp Pulse Resp BP Pulse Ox O2 Del Method 11/05/24 07:09 36.7 C 72 18 100/67 97 Room Air
[2024-11-05] MEDS: diphenhydrAMINE Capsule 25 MG CAP PO ONE (11:52)
[2024-11-05] MEDS: FAMOTIDINE 40 MG TABLET PO ONE (11:52)
[2024-11-05] MEDS: DAPTOmycin 500 MG in SYRINGE 0 ML IV ONE (11:52)
--- NOTE | 2024-11-05 15:51 | Communication Note ---
Date of Service: November 05, 2024 RN paged me that patient is upset and would like to go home today. In the morning I discussed with the patient, and his mother over the phone for possible plan of discharge tomorrow given time needed for logistical arrangement. Patient was seen and examined again at bedside, apparently upset, gave us time until 5 PM and then later on until 8 PM for us to get PICC line and chest x-ray and make sure he is safe to go home or regardless he is going home today. PICC line order and consent has already been taken care of earlier in the day. Patient's RN spoke with IV team who is coming in for PICC line placement, communicated with RN to get him stat chest x-ray after the PICC line placement to rule out pneumothorax. patient was explained about the plan in detail and it takes time. I communicated with supervisor case loading to try to move his [facility] appointment to tomorrow, it is scheduled at 11 AM tomorrow. Same has been communicated to patient at bedside and his mother over the phone. His mother was again given a phone call and explained the change in plan of his discharge and need to follow-up w/ [facility] daily starting tomorrow morning at 11 AM for IV antibiotic.
--- NOTE | 2024-11-05 16:26 | Communication Note ---
Date of Service: November 05, [address] performed on 11/02/2024: 1. Extensive distal right second finger soft tissue swelling consistent with cellulitis. 2.1 x 0.8 x 1.4 cm hypodense focus along the volar aspect of the distal phalanx of the right second finger. This could represent an abscess or phlegmon. No soft tissue gas. 2. Erosion of the distal tuft of the distal phalanx of the right second finger consistent with acute osteomyelitis. Microbiology: 11/02: Intraoperative deep wound culture growing MRSA and [place]ia Impression: 1. Right 2nd finger abscess 2. Right 2nd distal phalanx osteomyelitis 3. Status post incision and drainage on 11/02 Recommendations: Please continue on IV daptomycin to treat index finger osteomyelitis due to MRSA and [place]ia for a total duration of 6 weeks with anticipated end date of December 14, 2024.
--- NOTE | 2024-11-05 17:03 | XRay Report ---
EXAM: Portable AP chest radiograph TECHNIQUE: AP portable radiograph of the chest was obtained. INDICATION: Shortness of breath Comparison: Chest radiograph January 27, 2024 FINDINGS: LINES and TUBES: Right PICC with tip projecting over the distal SVC. CARDIOVASCULAR: Cardiac silhouette is normal in size. LUNGS/PLEURA: No focal consolidation identified. No significant pleural fluid. No discernible pneumothorax. OSSEOUS/OTHER: No displaced acute osseous process identified. IMPRESSION: Well-positioned right PICC Electronically signed by Pedro Marroquin 11-05-2024 5:03 PM
--- NOTE | 2024-11-05 17:38 | Psychiatric Progress Note ---
Date of Service November 05, 2024 Impression / Recommendations Impression CONCEPCION AVILA is a 63-year-old unemployed male, never and without children who is currently living at home with his mother and dog.He has a past psychiatric history of 2 commitments at this [facility] (January 2010, September 25, 2010), with a diagnosis of history of paranoid schizophrenia, and a suicide attempt he had starvation in 2010. Assessment: Psychiatry was consulted to assess the need for psychiatric admission and psychotropic medication management. The patient does not currently meet criteria for psychiatric commitment as he poses no imminent threat to himself or others and is not gravely disabled. He is currently displaying signs and symptoms of chronic psychosis with residual paranoid delusions, blunted affect, and impaired executive functioning (specifically attention). The patient's chronic paranoia and impaired executive functioning likely contributed to his interpersonal struggles with work and low frustration tolerance. He is not currently displaying signs of acute psychosis and although recommended, there is no acute need for psychotropic medication management at this time. The patient has limited insight into his behavioral health needs and is currently declining psychiatric treatment. The patient notably identified his sister as a trigger and plans to avoid and ignore her. He expressed no homicidal plan directed towards his family or coworkers, but plans to take legal actions against his coworker. (1) Paranoid schizophrenia: Plan Patient does not meet criteria for a 302 civil commitment Recommend establishing care with outpatient psychiatric provider to monitor and manage chronic delusions associated with his paranoid schizophrenia. There are no acute indication for medication management at this time. Risk Factors Assessment Do You Have Access To A Gun?: No Interval History Identifying Information CONCEPCION AVILA is a 63-year-old unemployed male, never and without children who is currently living at home with his mother and dog.He has a past psychiatric history of 2 commitments at this [facility] (January 2010, September 25, 2010), with a diagnosis of history of paranoid schizophrenia, and a suicide attempt he had starvation in 2010. Chief Complaint "pissed...I'm giving you five minutes. I'm leaving at five and you can't stop me. It's illegal." Subjective Subjective Patient was evaluated on the medical floor this afternoon. He reported his mood as "pissed...I'm giving you five minutes. I'm leaving at five and you can't stop me. It's illegal." The patient denied feelings of depression and anxiety, reporting preserved sleep, appetite, motivation, and energy. The patient stated that he plans to stay away from his family and the only family he trusts is his mother and his dog. The patient confirmed that he had an argument with his sister, but did not want to discuss it. He repeatedly told this advanced practice nurse to leave with a wave of his hand, but he remained calm and continued answering inquiries. The patient tolerated a discussion negotiating the time he will insist on leaving. Providing concrete somewhat child-like responses. Patient reported experiencing no auditory/visual hallucinations and no suicidal/homicidal ideations. Interval progress reviewed with [treatment team] [nursing and social work] Procedures Performed Operation Date: 11/02/24 17:25 Actual Procedures p Right Index Finger Incision and Drainage(Right) - Edmund Parr, DO Physical Exam Psychiatric Orientation: alert and oriented x 3 Apperance: appropriately dressed and appropriately groomed Eye Contact: + fair eye contact Motor Behavior: no abnormal motor movements Speech: normal rate/rhythm/volume of speech (child-like nba with occasionally unintelligible articulation errors) Affect: + blunted affect (limited affective range) and mood congruent with affect Mood: + irritable mood ("pissed" denied depression/anxiety) Thought Process: + circumstantial thought process and + concrete thought process Thought Content: + paranoid and + persecution Suicidal Thoughts: denies suicidal thoughts, denies suicidal plan and denies suicidal intent Homicidal Thoughts: denies homicidal thoughts, denies homicidal plan and denies homicidal intent Hallucinations: no auditory hallucinations and no visual hallucinations Cognition: + attention not intact (improved) Estimated Intelligence: + below average estimated intelligence Insight: + fair insight (appropriate to his estimated level of intelligence) Judgment: + fair judgement Vital Signs (Past 24 Hours) Last Vital Signs Temp 36.7 C 11/05/24 07:09 Pulse 72 11/05/24 07:09 Resp 18 11/05/24 07:09 BP 100/67 11/05/24 07:09 Pulse Ox 97 11/05/24 07:09 O2 Del Method Room Air 11/05/24 07:09 O2 Flow Rate 5 11/02/24 14:50 Results & Data ([facility]) Laboratory Results Laboratory Results - last 24 hr 11/05/24 09:28 Creatinine 0.99 Est Cr Clr Drug Dosing 74.5 eGFR 86.67 Current Inpatient Medications Current Inpatient Medications: Current Inpatient Medications Acetaminophen (Acetaminophen 500 Mg Tab) 1,000 mg PO Q6H PRN PRN Reason: pain/fever Stop: 12/01/24 21:48 Bisacodyl (Bisacodyl 10 Mg Supp) [address] DAILY PRN PRN Reason: Constipation Stop: 12/02/24 15:30 Docusate Sodium (Docusate Sodium 100 Mg Cap) 100 mg PO BID STEFAN Stop: 12/02/24 20:59 Last Admin: 11/05/24 08:00 Dose: 100 mg Enoxaparin Sodium (Enoxaparin Inj 40 Mg/0.4 Ml Syr) 40 mg SQ Q24H STEFAN Stop: 12/01/24 21:48 Last Admin: 11/04/24 21:54 Dose: 40 mg Folic Acid (Folic Acid 1 Mg Tab) 1 mg PO QAM STEFAN Stop: 12/02/24 08:59 Last Admin: 11/05/24 07:54 Dose: 1 mg Daptomycin 500 mg/ Syringe 10 mls @ 5 mls/min IV Q24H STEFAN; Protocol Stop: 12/18/24 11:59 Ibuprofen (Ibuprofen 800 Mg Tab) 800 mg PO Q8H PRN PRN Reason: pain Stop: 12/02/24 10:44 Last Admin: 11/03/24 09:28 Dose: 800 mg Lactobacillus Acidophilus (Advanced Probiotic 625 Mg Capsule) 1,250 mg PO DAILY STEFAN Stop: 12/05/24 08:59 Last Admin: 11/05/24 09:37 Dose: 1,250 mg Lorazepam (Lorazepam 1 Mg Tab) 1 mg PO ONE PRN; Protocol PRN Reason: EtoH Withdrawal AWSS 6,7,8,9,10 Lorazepam (Lorazepam 2 Mg/1 Ml Vial) 1 mg IV ONE PRN; Protocol PRN Reason: EtoH Withdrawal AWSS 6-10 Magnesium Hydroxide (Magnesium Hydroxide Susp 30 Ml Udc) 30 ml PO Q6H PRN PRN Reason: Constipation Stop: 12/02/24 15:30 Melatonin (Melatonin 3 Mg Tab) 3 mg PO HS PRN PRN Reason: Insomnia Stop: 12/01/24 21:48 Metoclopramide HCl (Metoclopramide Hcl Inj 5 Mg/Ml 2 Ml Vial) 10 mg IV Q6H PRN PRN Reason: Nausea And Vomiting Stop: 12/02/24 15:30 Multivitamins (Multivitamin Tab) 1 tab PO QAM [facility] Stop: 12/03/24 08:59 Last Admin: 11/05/24 07:55 Dose: 1 tab Olanzapine (Olanzapine 10 Mg/2.1 Ml Sdv) 2.5 mg IM Q6H PRN PRN Reason: Agitation Stop: 12/01/24 21:48 Olanzapine (Olanzapine 2.5 Mg Tab) 2.5 mg PO HS [facility] Stop: 12/01/24 21:48 Last Admin: 11/04/24 21:55 Dose: 2.5 mg Ondansetron HCl (Ondansetron Inj 2 Mg/Ml 2 Ml Vial) 4 mg IV Q6H PRN PRN Reason: Nausea Stop: 12/01/24 21:48 Ondansetron HCl (Ondansetron Inj 2 Mg/Ml 2 Ml Vial) 4 mg IV Q6H PRN PRN Reason: Nausea And Vomiting Stop: 12/02/24 15:30 Polyethylene Glycol (Polyethylene (Miralax) 17 Gm Pack) 17 gm PO DAILY PRN PRN Reason: Constipation Stop: 12/01/24 21:48 Thiamine HCl (Thiamine Hcl 100 Mg Tab) 100 mg PO QAM [facility] Stop: 12/02/24 08:59 Last Admin: 11/05/24 07:55 Dose: 100 mg
--- NOTE | 2024-11-05 19:40 | Discharge Summary ---
Date of Service November 05, 2024 Admission HPI Per Admitting Provider Mr. Orta is a 63 year old gentleman with past medical history remarkable for paranoid schizophrenia,not on medications (followed at [facility]), MDD, HLD, presented to [facility] ED due to finger pain and generalized weakness. Patient states the pain in his finger has worsened. He has presented to ED on multiple occasions (outlined below) for a self inflicted finger wound. 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 Patient was able to take 3 doses of bactrim, but notes that his "finger is spliting open," he "cannot walk" since arrival to ED, and that his whole body is "stiff and painful and cannot move." Patient reports "someone is taking [his] poop" and that's why he was passing flatus during exam. Patient very difficult to obtain clear history. He lives with his mother, who was not reachable by phone x 3 attempts to gather baseline from patient. Patient able to deny nausea,vomiting, fevers; however, then states he is "dying" and when asked to explain he points at green ink stains on his 3rd digit and notes "because its in [his] veins." When asked about psychiatric history and follow up at [facility], he states he doesn't follow there and notes that his sister "ratted [him] out" and he is "never going back." He doesn't smoke but reports etoh intake, noting last intake was Saturday. 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 Abscess was drained, he was put on keflex later switched to Augmentin appx 3 days ago. 10/29/24 - He saw another provider yesterday for ER follow up. Significant swelling and pain, recommended to return ER. 10/29/24, he return to ER. He was switched to bactrim but he has not picked up the medication yet. He hit his index finger again today, which prompted him to have this visit. His bleeding has stopped with ice. He has been doing yard work and remodeling his bedroom. Has been drinking "wine cooler" to help with the pain. He denies any fever, chills, headache, chest pain or SOB. No excessive drainage from finger." Unable to ascertain clear history from patient or to encourage patient to engage in full formal neurological exam. In the ED, vitals were notable for BP of 120s-150s/ 90-100s, HR of 60-70s, and O2 sat of high 90s on room air. Afebrile. Imaging revealed CTA without signs of acute stroke or stenosis, finger exray with soft tissue swelling Old cultures reviewed with MRSA sensitive to Vanc EKG NSR ED interventions: none Patient to be admitted to med/surg for further evaluation and management of finger abscess and evaluation by psych Admission Exam Per Admitting Provider GENERAL APPEARANCE: AxOx4, disheveled gentleman, tangential in conversation, difficult to keep engaged on singular topic, intermittent bursts of emotions claiming he is "dying". HEENT: NC, AT. MMM. EOMI, clear conjunctiva, oropharynx clear, poor dentition NECK: Supple without lymphadenopathy. No stiffness or restricted ROM. HEART: Normal rate and regular rhythm, normal S1/S1, no m/r/g LUNGS: CTAB, moving air well. No crackles or wheezes are heard. ABDOMEN: Soft, nontender, nondistended with good bowel sounds heard. BACK: No CVAT, no obvious deformity. EXTREMITIES: Without cyanosis, clubbing or edema. NEUROLOGICAL: Grossly nonfocal. No dysarthria noted. Alert and oriented, reports inability to move, however moving all 4 extremities when light touch applied to bottom of feet with strong flexion of hip flexors bringing legs to 90 bend at hip and knee. Moving upper extremities robustly. Movement concerns appear self limited. CN not formally tested given inability for patient to follow sequential exam but appear grossly intact. Skin: Warm and dry without any rash. right second digit with ecchymotic and purulent swelling of DIP Principal Diagnosis right index finder cellulitis/osteomyelitis Discharge Exam Lying in the bed without any acute distress, No SI or HI. Constitutional well developed, well nourished and + ill appearing Eyes PERRL, conjunctivae normal, anicteric sclerae ENMT external ear and nose normal, oropharynx normal Neck trachea midline, no thyromegaly Respiratory no respiratory distress Auscultation: lungs clear to auscultation bilaterally Cardiovascular Rate/Rhythm: regular rate and regular rhythm; not tachycardic Heart Sounds: normal S1 and normal S2; no murmur Extremities: no edema Gastrointestinal (Abdomen) Inspection/Auscultation: normal bowel sounds; abdomen not distended Percussion/Palpation: abdomen soft; abdomen nontender Neurologic normal touch/pain/proprioception, moves all extremities and + focal motor deficit Lymphatic no cervical or axillary lymphadenopathy Discharge Data Allergies Allergy/AdvReac Type Severity Reaction Status Date / Time No Known Allergies Unverified 11/01/24 15:22 Consultations 11/01/24 16:58 ED Decision to Admit Stat 11/01/24 17:12 Consult Psychiatry Routine 11/02/24 07:07 Consult Orthopedic Surgery Routine 11/04/24 14:54 Consult Infectious Diseases Routine Procedures Performed Operation Date: 11/02/24 17:25 Actual Procedures p Right Index Finger Incision and Drainage(Right) - Edmund Parr DO Ordered Studies 11/01/24 12:23 CT angio head w con Stat CT angio neck with con Stat CT head/brain wo con Stat 11/02/24 06:53 CT hand RT wo con Urgent Hospital Course (1) Abscess of finger of right hand: Right index finger abscess with associated acute osteomyelitis involving distal phalanx Appreciate orthopedic input and recommendation Status post right index finger incision and drainage on 11/02/2024 The wound culture is growing MRSA Maculopapular skin lesions to IV vancomycin 11/04, discontinued, was changed to clindamycin 11/04. Discussed with ID over the phone 11/05, patient needs 6 weeks IV antibiotic therapy with daptomycin for osteomyelitis, clindamycin will be full of side effects for long-term treatment. CPK level this admission noted. 115. Monitor CPK and labs weekly while on daptomycin. (2) Schizophrenia: Appreciate psychiatric input and recommendation No recommendation for any additional medications He has been cleared for discharge (3) Burn of right index finger: (4) Osteomyelitis of finger of right hand: (5) MDD (major depressive disorder): (6) Prediabetes: (7) Alcohol use: Home Health Attestation I certify that this patient is under my care and that I, or a physicians internet marketing assistant working with me, had a face to-face encounter that meets the home health [id number] encounter requirements with this patient. The encounter with the patient was in whole, or in part, for the following medical condition, which is the primary reason for home health care (list medical condition): I certify that, based on my findings, the following services are medically necessary home health services: My clinical findings support the need for the above services because: Further, I certify that my clinical findings support that this patient is homebound (i.e. absences from home require considerable and taxing effort and are for medical reasons or pentecostalism services or infrequently or of short duration when for other reasons) because: Certification for Home Health Services: Based on the above findings, I certify that this patient is confined to the home and needs intermittent alf care, physical therapy and/or speech therapy or continues to need occupational therapy. The patient is under my care, and I have initiated the establishment of the plan of care. This patient will be followed by a physician who will periodically review the plan of care. Total Time Total Time Spent Total Time Spent (In Minutes): 70 Discharge Plan Discharge Items Patient Disposition: Home - Self-Care Reason For Visit: FIGNER ABSCESS Discharge Diagnosis: Right index finger abscess Right index finger osteomyelitis Condition on Discharge: Good Activity: Resume your previous activity Non-emergency contact: Primary Care Provider Call non-emergency contact if: you have any medication questions and your sympt oms worsen Follow-up/Referrals: Elizabeth Beckford DO [Primary Care Provider] - (Date & Time 11/10/2024 3:00 PM Provider: Elizabeth Beckford DO [facility]) Edmund Parr DO [Physician] - Diet: Heart Healthy Addtl Attending Provider Instructions: Follow-up with your primary care physician within a week time and likely you will need labs CBC/CMP/magnesium/phosphorus. You were evaluated by orthopedics and infectious disease while in hospital. Follow-up with orthopedics in 2 weeks time upon discharge. You are being discharged on IV antibiotics for 6 weeks, follow-up at [facility] daily starting tomorrow at 11 AM. You will need CPK level, CBC and CMP while on IV antibiotic weekly, coordinate with your PCP office to set up the test. Take your medications as prescribed. Please make sure that you are able to get your medications today by calling your pharmacy before you leave the hospital so that your treatment continuity is not broken. 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 Medications: 1. Narcotic You will likely be sent home from the hospital with a prescription for the narcotic pain medication. Take it as needed. Side effects most commonly include nausea and constipation 2. Resume previous home medications unless otherwise instructed Dressing Care: If there is a soft dressing in place then leave the dressing intact for 5 days. On the you may remove the dressing and leave the stitches open to air or cover them with band-aids. Keep the incision clean and dry If there is a hard splint then leave it in place until your follow-up visit in 2 weeks Showering: If you have a soft dressing you may shower right after the surgery but do not get the dressing wet. After the dressing is removed on the 5th day then you can get the stitches wet in the shower, but do not soak or scrub them. Let the soapy shower water run over the stitches and pat them dry. If you have a hard splint, cover it in a plastic bag and keep it dry. Do not remove it until the follow up appointment. Things To Watch For: 1. Drainage from the incision site that occurs more than one week after your surgery. 2. Increased redness at the incision site. 3. Fever above 102 degrees Fahrenheit. 4. Unusual chest pain or shortness of breath. 5. Call [facility] at with any of the above problems. Follow-Up Visit: Please make arrangements to follow-up with Dr. Parr team approximately 2 weeks after your day of surgery for progress check and staple/suture removal. If you have any questions call Pending Studies at Discharge: Yes Stand-Alone Forms: My [facility], Smoking Cessation Medications and DC Order Prescriptions: New thiamine HCl (vitamin B1) 100 mg Tablet 100 mg PO QAM Qty: 30 0RF melatonin 3 mg Tablet 3 mg PO HS PRN (Reason: sleep) Qty: 30 0RF olanzapine 2.5 mg Tablet 2.5 mg PO HS Qty: 30 0RF folic acid 1 mg Tablet 1 mg PO QAM Qty: 30 0RF multivitamin with folic acid [Daily-Jose (with folic acid)] 400 mcg Tablet 1 tab PO QAM Qty: 30 0RF Advanced Probiotic 625 mg (10 billion cell) Capsule 1 cap PO DAILY Qty: 30 0RF daptomycin 500 mg recon soln 500 mg IV DAILY 42 Days Rx Instructions: administer over 30 mins. Start Date 11/05/2024. End Date Dec 10, 2024. Discontinued sulfamethoxazole-trimethoprim [Bactrim DS] 800-160 mg tablet 1 tab PO Q12H Qty: 20 0RF Rx Instructions: Start Date 10/30/24 x10 day supply Discharge Orders: Discharge Order (Routine); Ordered 11/05/24 Ordered By: Mayra Calvillo/Other Patient Handouts: Osteomyelitis Dc Admission Data Admit Date/Time: 11/02/24 14:37 Attending Provider: Mayra Bird Admit Provider: Jordi Alvares Primary Care Provider: Elizabeth Beckford Other Providers: Gail Florentino; Neyda Blanton; Danny Parson; Angeles Rogel; Radha Mccray; Javy Padilla; Phillip Mcpherson; Lidia Dang; Summer Matthews; Edmund Parr; Rudi Zamarripa; Yadira Sinha; Magno Day I.; Magno Goldstein II; Franchesca Burleson; Alcides Alvares; Jeffrey Hendrickson; Bautista Arellano Other Interventions: Discharge Summary Assessment (RN) Last Done: 11/05/24 17:29
[2024-11-06] MEDS ORDERED: DAPTOmycin 500 MG in SYRINGE 0 ML IV SCH (12:00)
== END 2024-11-05 18:17 | disposition home or self-care (01) | DRG 603 ==
LOC: EDINP 11:50 → ED 11:50 → SUATTDRO 17:54 → 3E 21:49 → SUATTDRO 11-02 14:37

== ENCOUNTER 2024-11-15 08:24 | Inpatient (IN) ==
--- NOTE | 2024-11-15 09:13 | Emergency Department Note ---
Impression & Plan Paranoid schizophrenia, Infected blister of right index finger ED Provider Note NAME: CONCEPCION AVILA AGE: 64 SEX: M : 1960 ARRIVES VIA: Walk-In INFORMANT: Patient, the patient's family friend ED PROVIDER(S): Gordy Sanchez DO CHIEF COMPLAINT: Mental health evaluation HPI: The patient is a 64-year-old male who does have a history of alcohol abuse but also has mental health issues who presented to the emergency department for an evaluation of mental health issues. The patient has been very paranoid. He is currently being treated for a right finger infection that occurred after a burn. The patient has a PICC line and he is receiving daptomycin. The patient was at [facility] and was sent to the emergency department because he did not seem to be responding appropriately. His friends came with the to the emergency department. They states that he has been very paranoid recently thinking that people are following him. The patient denies having any chest pain or difficulty breathing. The patient denies any drug or alcohol use recently. ROS: See above HPI for pertinent positives & negatives. A total of 10 systems reviewed and were otherwise negative. PAST MEDICAL HISTORY: See Below PAST SURGICAL HISTORY: See Below FAMILY HISTORY: See Below SOCIAL HISTORY: See Below HOME MEDICATIONS: See Below ALLERGIES: See Below VITALS: See Below PHYSICAL EXAMINATION: GENERAL: Patient is awake alert in no acute distress patient is resting comfortably and showing no signs of anxiety EYES: The conjunctivae are clear. The pupils are round and reactive. EARS, NOSE, MOUTH AND THROAT: The nose is without any evidence of any deformity. Mucous membranes are moist. Tongue is midline. NECK: The neck is nontender and supple. RESPIRATORY: Normal respiratory effort is noted there is no evidence of wheezing rhonchi or rales CARDIOVASCULAR: Regular rate and rhythm noted there no murmurs rubs or gallops normal S1 normal S2. GASTROINTESTINAL: The abdomen is soft. Abdomen is nontender. MUSCULOSKELETAL/EXTREMITIES: There is no evidence of gross deformity full range of motion is noted in the hips and shoulders. SKIN: There is no obvious evidence of any rash. There are no petechiae, pallor or cyanosis noted. NEUROLOGIC: Patient is awake alert and oriented x3 strength is symmetric patellar reflexes are 2+ bilaterally PSYCH: The patient makes good eye contact mostly evaluation. His affect is somewhat animated with no suicidal homicidal ideation. The patient is referring to himself in the third person. He is also admitting that people are following him. MEDICAL DECISION MAKING: The patient is a 64-year-old male who presented to the emergency department for an evaluation of mental health issues. The patient has a history of schizophrenia. The patient has been having paranoid symptoms recently. The patient is also being treated for a right hand infection. The patient was medically cleared in the emergency department but unfortunately he was unable to be placed in a mental health facility given his right hand infection. I discussed the patient's condition with the [facility] group. They have agreed to evaluate the patient in the emergency department for further management and disposition. Triage Nursing notes reviewed. Prior medical records reviewed Vital Signs: reviewed and remarkable for no significant abnormalities Differential diagnosis: Mood disorder, infection, hypoglycemia, electrolyte abnormalities, cardiac sources, intracerebral event, toxicologic, trauma, neurologic, as well as other pathologies. ER treatment provided: See below Diagnostics interpreted by me: ECG: EKG was obtained in the emergency department. My interpretation is normal sinus rhythm at 71 bpm. There is no ectopy. There is no acute ST segment abnormalities noted. Inferior T wave abnormalities were appreciated. This was compared to a tracing from November 01, 2024. The inferior changes are new compared to previous tracing otherwise no changes were noted. Cardiac Monitoring: An order was placed for continuous cardiac monitoring. The monitor shows a rate of 60 bpm with sinus rhythm. Laboratory studies: As stated above and show below. Imaging studies: See below. Radiographic imaging was reviewed by myself Consultation(s): I discussed this case with Dr. Bird who is on-call for the [facility] hospitalist group. 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 Beliefs That Will Affect Care: None Current Living Situation: Parent Current Living Situation Comment: Mother Feels Safe at Home: Yes Assistive Devices: None Allergies Allergies Allergy/AdvReac Type Severity Reaction Status Date / Time vancomycin Allergy Redness of Verified 11/15/24 08:31 Skin Home Meds Previous Rx's Medication Instructions Recorded L.acidop,casei,lactis,rham-B.lact,alpa 1 cap PO DAILY #30 caps 11/05/24 625 mg (10 billion cell) capsule (Advanced Probiotic) daptomycin 500 mg intravenous 500 mg IV DAILY 6 weeks 11/05/24 solution folic acid 1 mg tablet 1 mg PO QAM #30 tabs 11/05/24 melatonin 3 mg tablet 3 mg PO HS PRN sleep #30 tabs 11/05/24 multivitamin with folic acid 400 1 tab PO QAM #30 tabs 11/05/24 mcg tablet (Daily-Jose (with folic acid)) olanzapine 2.5 mg tablet 2.5 mg PO HS #30 tabs 11/05/24 thiamine HCl (vitamin B1) 100 mg 100 mg PO QAM #30 tabs 11/05/24 tablet Results & Data (ED) Vital Signs Vital Signs - 24 hr 11/15/24 08:30 11/15/24 11:24 11/15/24 14:18 Temperature 36.6 C Temperature Source Temporal Artery Scan Pulse Rate 84 Pulse Rate [Apical] 78 60 Pulse Rhythm [Apical] Regular Regular Pulse Strength [Apical] Normal Normal Respiratory Rate 18 20 20 Respiratory Effort / Characteristics Non-Labored Spontaneous Non-Labored Spontaneous Non-Labored Spontaneous Respiratory Depth Normal Normal Normal Respiratory Pattern Regular Regular Blood Pressure 149/85 H Blood Pressure [Right Arm] 135/74 120/63 Blood Pressure Mean 106 Blood Pressure Mean [Right Arm] 94 82 Blood Pressure Position [Right Arm] Lying Lying Pulse Oximetry 98 98 94 Oxygen Delivery Method Room Air Room Air Room Air Sepsis Recent Fever Within 48 Hours No Sepsis New/Unexplained Change in Mental Status No Sepsis Action Taken by Nursing No Action Required Home Medications Current Medication List: was personally reviewed by me Laboratory Data Attestation: I reviewed the patient's lab results. 11/15/24 09:07 11/15/24 09:07 Lab Results 11/15/24 11/15/24 Range/Units 09:07 10:31 WBC 11.38 H (4.8-10.8) K/ul RBC 4.24 L (4.70-6.10) M/uL Hgb 12.6 L (14.0-18.0) g/dl Hct 38.2 L (42.0-52.0) % MCV 90.1 (80.0-100.0) fL MCH 29.7 (25.0-34.0) pg MCHC 33.0 (32.0-36.0) g/dL RDW Std Deviation 47.3 H (36.4-46.3) fL RDW Coeff of Iker 14.5 (11.5-14.5) % Plt Count 245 (130-400) K/uL MPV 10.7 (9.4-12.4) fL Immature Gran % (Auto) 1.4 % Neut % (Auto) 72.2 % Lymph % (Auto) 19.9 % [place] % (Auto) 0.8 % Eos % (Auto) 2.7 % Baso % (Auto) 3.0 % Neut # (Auto) 8.22 H (1.40-6.50) K/uL Lymph # (Auto) 2.26 (1.20-3.40) K/uL [facility] # (Auto) 0.09 L (0.11-0.59) K/uL Eos # (Auto) 0.31 (0.00-0.50) K/uL Baso # (Auto) 0.34 H (0.00-0.20) K/uL Immature Gran # (Auto) 0.16 (0.01-0.20) K/uL Polychromasia 1+ Sodium 137 (136-145) mmol/L Potassium 3.9 (3.5-5.1) mmol/L Chloride 103 (98-107) mmol/L Carbon Dioxide 27 (21-32) mmol/L Anion Gap 7 (3-11) BUN 18 (6-23) mg/dl Creatinine 0.85 (0.6-1.4) mg/dl Est Cr Clr Drug Dosing 96.1 ml/min eGFR 98.25 BUN/Creatinine Ratio 21.2 H (10-20) Glucose 102 H (70-99(Fasting)) mg/dl Calcium 9.2 (8.6-10.3) mg/dl Total Bilirubin 0.6 (0.2-1.0) mg/dl AST 25 (13-39) U/L ALT 17 (7-52) U/L Alkaline Phosphatase 99 (34-104) U/L Troponin I High Sens 4.8 (0-20) pg/ml Total Protein 7.6 (6.0-8.3) gm/dl Albumin 4.1 (3.4-5.0) gm/dl Globulin 3.5 (2.5-4.0) gm/dl Albumin/Globulin Ratio 1.2 (0.9-2) TSH 1.566 (0.300-4.500) uIu/ml Urine Color Yellow Urine Appearance Clear (Clear) Urine pH 6.0 (4.5-7.5) Ur Specific Downey 1.009 (1.000-1.030) Urine Protein Negative (Negative) Urine Glucose (UA) Negative (Negative) Urine Ketones Negative (Negative) Urine Blood Negative (Negative) Urine Nitrite Negative (Negative) Urine Bilirubin Negative (Negative) Urine Urobilinogen Negative (Negative) Ur Leukocyte Esterase 1+ H (Negative) Urine WBC (Auto) 6-10 H (0-5) /hpf Urine RBC (Auto) 0-2 (0-2) /hpf U Hyaline Cast (Auto) 0-2 (0-2) /lpf U Epithel Cells (Auto) 0-2 (0-2) /hpf Urine Bacteria (Auto) None Seen (None Seen) Urine Comment Salicylates < 3.0 L (3.0-30) mg/dl Urine Opiates Screen Neg (Neg) Ur Methadone, Qual Neg (Neg) Urine Fentanyl Screen Neg (Neg) Acetaminophen < 3 L (10-30) ug/ml Urine Barbiturates Neg (Neg) Ur Phencyclidine (PCP) Neg (Neg) U Amphetamin/Meth Scrn Neg (Neg) MDMA (Ecstasy) Screen Neg (Neg) U Benzodiazepines Scrn Neg (Neg) Ur Cocaine Metabolite Neg (Neg) U Marijuana (THC) Screen Neg (Neg) Ethyl Alcohol mg/dL < 10.0 (<10.0) mg/dl SARS-CoV-2, RNA, NAAT NEGATIVE (NEGATIVE) Imaging Data Attestation: I personally reviewed and interpreted this imaging study as follows: My Impression: 1 view chest x-ray was obtained in the emergency department for medical clearance. My interpretation is no free air or definite filtrate, final report below. Radiologist's Impression: Chest X-Ray 11/15/24 08:51 XR chest 1V portable CLINICAL HISTORY: med clearance COMPARISON STUDY: Chest radiograph November 05, 2024. FINDINGS: Lung volumes are normal. Lungs are clear. There is no pneumothorax or pleural effusion. Cardiac size is normal. Mediastinal contours are normal. There is no evidence for pulmonary edema. Tip of right PICC projects over the SVC. IMPRESSION: No acute cardiopulmonary findings. ACT 112: Negative or not required by law. Electronically signed by: Marcello Dixon M.D. 11/15/2024 9:[address] 11/15/24 08:51 CT SCAN OF THE BRAIN WITHOUT IV CONTRAST CLINICAL HISTORY: Altered mental status. COMPARISON STUDY: Head CT November 01, 2024. TECHNIQUE: Unenhanced axial CT scan of the brain was performed from the vertex to the skull base. A dose lowering technique was utilized adhering to the principles of ALARA. CT DOSE: 625.8 mGy.cm FINDINGS: Brain parenchyma: No acute intracranial hemorrhage, midline shift or mass effect is present. Koch-white matter differentiation is preserved. There are no extra- axial fluid collections. There are no findings to suggest acute dural sinus thrombosis or acute territorial infarct. Ventricles, sulci, cisterns: There is no hydrocephalus. The basal cisterns are patent. Calvarium: Unremarkable. Sinuses and mastoids: The visualized paranasal sinuses are clear. The mastoid air cells are well pneumatized. Orbits: The bony orbits are grossly intact. IMPRESSION: No acute intracranial findings. ACT 112: Negative or not required by law. Electronically signed by: Marcello Dixon M.D. 11/15/2024 9:44 AM Discharge Plan Visit Data Chief Complaint: Mental Health Evaluation Stated Complaint: MENTAL HEALTH EVAL ED Provider: Gordy Sanchez Discharge Problem: Paranoid schizophrenia, Infected blister of right index finger Patient Disposition: Being Evaluated by Hospitalist Condition: Fair Forms Stand Alone Forms: My [facility], Suicide Prevention Resources Prescriptions Prescriptions: No Action thiamine HCl (vitamin B1) 100 mg Tablet 100 mg PO QAM Qty: 30 0RF melatonin 3 mg Tablet 3 mg PO HS PRN (Reason: sleep) Qty: 30 0RF olanzapine 2.5 mg Tablet 2.5 mg PO HS Qty: 30 0RF folic acid 1 mg Tablet 1 mg PO QAM Qty: 30 0RF multivitamin with folic acid [Daily-Jose (with folic acid)] 400 mcg Tablet 1 tab PO QAM Qty: 30 0RF Advanced Probiotic 625 mg (10 billion cell) Capsule 1 cap PO DAILY Qty: 30 0RF daptomycin 500 mg recon soln 500 mg IV DAILY 42 Days Rx Instructions: administer over 30 mins. Start Date 11/05/2024. End Date Dec 10, 2024. Referrals Referrals: Elizabeth Beckford DO [Primary Care Provider] -
[2024-11-15 09:25] LABS: Hematocrit (blood only) 38.2 % (42.0-52.0); Hemoglobin 12.6 g/dl (14.0-18.0); Mean Corpuscular Hemoglobin 29.7 pg (25.0-34.0); Mean Corpuscular Volume 90.1 fL (80.0-100.0); Platelet Count 245 K/uL (130-400); RDW Standard Deviation 47.3 fL (36.4-46.3); Red Blood Count 4.24 M/uL (4.70-6.10); White Blood Count 11.38 K/ul (4.8-10.8)
--- NOTE | 2024-11-15 09:37 | XRay Report ---
XR chest 1V portable CLINICAL HISTORY: med clearance COMPARISON STUDY: Chest radiograph November 05, 2024. FINDINGS: Lung volumes are normal. Lungs are clear. There is no pneumothorax or pleural effusion. Car diac size is normal. Mediastinal contours are normal. There is no evidence for pulmonary edema. Tip o f right PICC projects over the SVC. IMPRESSION: No acute cardiopulmonary findings. ACT 112: Negative or not required by law. Electronically signed by: Marcello Dixon M.D. 11/15/2024 9:36 AM
[2024-11-15 09:42] LABS: Alanine Aminotransferase 17.0 U/L (7-52); Albumin Globulin Ratio 1.2 (0.9-2); Alkaline Phosphatase 99.0 U/L (34-104); Anion Gap 7.0 (3-11); Bilirubin,Total 0.6 mg/dl (0.2-1.0); Blood Urea Nitrogen 18.0 mg/dl (6-23); Calcium 9.2 mg/dl (8.6-10.3); Carbon Dioxide 27.0 mmol/L (21-32); Chloride 103.0 mmol/L (98-107); Creatinine Clr Calc Pharmacy 96.1 ml/min; Globulin 3.5 gm/dl (2.5-4.0); Glucose 102.0 mg/dl (70-99(Fasting)); Potassium 3.9 mmol/L (3.5-5.1); Sodium 137.0 mmol/L (136-145); Total Protein 7.6 gm/dl (6.0-8.3)
[2024-11-15 09:46] LABS: Immature Granulocytes # (auto) 0.16 K/uL (0.01-0.20); Immature Granulocytes % (auto) 1.4 %; Polychromasia 1+
--- NOTE | 2024-11-15 09:46 | CT Scan Report ---
CT SCAN OF THE BRAIN WITHOUT IV CONTRAST CLINICAL HISTORY: Altered mental status. COMPARISON STUDY: Head CT November 01, 2024. TECHNIQUE: Unenhanced axial CT scan of the brain was performed from the vertex to the skull base. A dose lowering technique was utilized adhering to the principles of ALARA. CT DOSE: 625.8 mGy.cm FINDINGS: Brain parenchyma: No acute intracranial hemorrhage, midline shift or mass effect is present. Koch-whi te matter differentiation is preserved. There are no extra-axial fluid collections. There are no find ings to suggest acute dural sinus thrombosis or acute territorial infarct. Ventricles, sulci, cisterns: There is no hydrocephalus. The basal cisterns are patent. Calvarium: Unremarkable. Sinuses and mastoids: The visualized paranasal sinuses are clear. The mastoid air cells are well pneu matized. Orbits: The bony orbits are grossly intact. IMPRESSION: No acute intracranial findings. ACT 112: Negative or not required by law. Electronically signed by: Marcello Dixon M.D. 11/15/2024 9:44 AM
[2024-11-15 09:58] LABS: Thyroid Stimulating Hormone 1.566 uIu/ml (0.300-4.500)
[2024-11-15 10:41] LABS: Acetaminophen < 3 ug/ml (10-30); Salicylate < 3.0 mg/dl (3.0-30)
[2024-11-15 10:54] LABS: Appearance Urine Clear (Clear); Bacteria Urine Automated None Seen (None Seen); Cast Urine Automated 0-2 /lpf (0-2); Epithelial Cell Urine Auto 0-2 /hpf (0-2); Glucose Urine UA Negative (Negative); RBC Urine Automated 0-2 /hpf (0-2)
--- NOTE | 2024-11-15 10:56 | Electrocardiogram Report ---
Test Reason : Blood Pressure : */* mmHG Vent. Rate : 71 BPM Atrial Rate : 71 BPM P-R Int : 192 ms QRS Dur : 86 ms QT Int : 392 ms P-R-T Axes : -12 -10 -21 degrees QTcB Int : 425 ms Normal sinus rhythm Inferior infarct , age undetermined Abnormal ECG When compared with ECG of 01-Nov-2024 12:14, Inferior infarct is now Present T wave inversion now evident in Inferior leads Confirmed by Gordy Villalta ([id number]) on 11/15/2024 10:56:18 AM Referred By: REFERRED SELF Confirmed By: Gordy Villalta
[2024-11-15 11:29] LABS: Amphetamines+Metham, Urine Neg (Neg); MDMA (Ecstacy), Urine Neg (Neg); Marijuana, Urine Neg (Neg)
[2024-11-15] MEDS ORDERED: ACETAMINOPHEN 325 MG TAB PO PRN (13:48)
[2024-11-15] MEDS ORDERED: POLYETHYLENE (MIRALAX) 17 GM PACK PO PRN (13:48)
[2024-11-15] MEDS ORDERED: ONDANSETRON INJ 2 MG/ML 2 ML VIAL IV PRN (13:48)
[2024-11-15] MEDS ORDERED: ALUMINUM/MAGNESIUM SUSP 30 ML UDC PO PRN (13:48)
[2024-11-15] MEDS ORDERED: MAGNESIUM HYDROXIDE SUSP 30 ML UDC PO PRN (13:48)
[2024-11-15] MEDS ORDERED: MELATONIN 3 MG TAB PO PRN (13:51)
--- NOTE | 2024-11-15 14:11 | History & Physical Report ---
Date of Service November 15, 2024 Assessment & Plan (1) Paranoid schizophrenia: Plan Abscess of finger of right hand: Right index finger abscess with associated acute osteomyelitis involving distal phalanx, was recently admitted for this. ID has evaluated, continue patient's IV daptomycin. CPK in AM. Labs in AM. Paranoid Schizophrenia: patient with active visual/auditory hallucination. Patient reports hearing voices from radio and feels that he is being tracked by [employer] and bugs has been planted at his house. He even ripped apart patient's mother's house to try to find planted bugs per patient's sister Narda. Psychiatry consult placed, notified. Will continue with home medications to begin with as he has not been taking any home medications per patient's daughter sister. DVT prophylaxis: Heparin subcu Full code History of Present Illness Chief Complaint: Hallucinations Primary Care Provider: Elizabeth Beckford DO 64-year-old male with PMH of paranoid schizophrenia, noncompliant with home medications, MDD, HLD who was recently admitted for right index finger osteomyelitis and was getting IV daptomycin daily at [facility] was sent from [facility] after IV antibiotic today to the ED due to note of abnormal behavior. Patient was accompanied by his friend Kylie today to clinic who stated that patient has not been taking his home medications, patient presented to her house today morning apparently at 1 am, waited outside and she noticed him around 6 am, when patient was stating that he is being tracked by [employer] and he has been hearing different voices and hence has been running away from them. Because of the concern that patient is running away from his voices, he was deemed a danger to self and to others if he is driving his vehicle's back to home. Patient's mother is not aware of what patient has been doing regarding his daily IV antibiotic or home psychiatric medications. She could not provide any history and suggested that I chat with patient's Sister Narda [[phone]]. Patient's sister Narda states that patient has not been taking his home medication at all for very long and not again after last discharge from hospital. She also states that patient has been ripping apart their mother's home because the patient feels that bugs has been implanted in the house and he is being tracked by the [employer]/he is hearing voices from the radio. And she feels that patient is danger to self and others. Patient himself states that he has been taking his IV antibiotics daily but he feels that he does not need his oral psychiatric medications and he is not taking them at all. Patient denies fever/sore throat/cough/chest pain/palpitations/belly pain/nausea/vomiting/diarrhea. Patient is incoherent and not cooperative during bedside exam and history taking but not violent. Patient denies suicidal ideation or homicidal ideation. Patient lacks insight. History was taken from discussion with ED physician, chart review, from patient himself, from patient's friend Kylie over the phone [[phone]], from patient's sister Narda over the phone [[phone]] and from patient's mother Vanessa over the phone. Patient's prior home medications reviewed and resumed. Patient's IV antibiotic resumed, will get CPK in AM. Patient's labs today reviewed, fairly WNL. CTA head and CXR with no acute finding. Allergies Allergy/AdvReac Type Severity Reaction Status Date / Time vancomycin Allergy Redness of Verified 11/15/24 08:31 Skin Home Medications Medication Instructions Recorded Confirmed Type L.acidop,casei,lactis,rham-B.lact,alpa 1 cap PO DAILY #30 caps 11/05/24 11/15/24 Rx 625 mg (10 billion cell) capsule (Advanced Probiotic) daptomycin 500 mg intravenous 500 mg IV DAILY 6 weeks 11/05/24 11/15/24 Rx solution folic acid 1 mg tablet 1 mg PO QAM #30 tabs 11/05/24 11/15/24 Rx melatonin 3 mg tablet 3 mg PO HS PRN sleep #30 tabs 11/05/24 11/15/24 Rx multivitamin with folic acid 400 1 tab PO QAM #30 tabs 11/05/24 11/15/24 Rx mcg tablet (Daily-Jose (with folic acid)) olanzapine 2.5 mg tablet 2.5 mg PO HS #30 tabs 11/05/24 11/15/24 Rx thiamine HCl (vitamin B1) 100 mg 100 mg PO QAM #30 tabs 11/05/24 11/15/24 Rx tablet Past Med/Surg History Problem List Paranoid schizophrenia Alcohol use Prediabetes Osteomyelitis of finger of right hand Weakness (Acute) Dizziness (Acute) Finger infection (Acute) Medical History MDD (major depressive disorder) HLD (hyperlipidemia) Schizophrenia Social History Smoking Status: Never smoker Second Hand Exposure: No; Do You Dip or Chew Tobacco: No; Hx Alcohol Use: Yes Hx Substance Use: No Preferred Language: Syriac Communication Ability: Effective Restaurant 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 Physical Exam Physical Exam: GENERAL: Alert and awake, noncooperative, nonviolent, denies SI/HI, lacks insight, incoherent. NAD, on RA. HEENT: No pallor, no icterus. Pupils equal, round and reactive to light. Oral mucosa moist. NECK: No JVD, no neck masses. HEART: S1 and S2 heard. Regular rate and rhythm. No murmur, no gallop. RESPIRATORY SYSTEM: Normal AP diameter. No accessory muscle use. No wheezing, no crackles. ABDOMEN: Soft, bowel sounds present, nontender, no distention. CENTRAL NERVOUS SYSTEM: No facial droop. Speech is clear. Obeys simple commands. Moves extremities. EXTREMITIES: No edema, no erythema seen. Rt index finger w/ scabbed wound, minimal erythema, no streaking/non tender/no warmth/no drainage. Results & Data Results & Data Vital Signs (Past 12 Hours) Vital Signs Temp Pulse Pulse Resp BP BP Pulse Ox 11/15/24 11:24 78 20 135/74 98 11/15/24 08:30 36.6 C 84 18 149/85 H 98 O2 Del Method 11/15/24 11:24 Room Air 11/15/24 08:30 Room Air
[2024-11-15] MEDS: HEPARIN SOD 5,000 UNIT/0.5 ML VIAL SQ SCH (20:49)
[2024-11-15] MEDS: OLANZAPINE 2.5 MG TAB PO SCH (20:50)
[2024-11-15 23:53] VITALS: O2SAT 97
[2024-11-16 07:03] LABS: Hematocrit (blood only) 35.1 % (42.0-52.0); Hemoglobin 11.8 g/dl (14.0-18.0); Mean Corpuscular Hemoglobin 31.1 pg (25.0-34.0); Mean Corpuscular Volume 92.6 fL (80.0-100.0); Platelet Count 214 K/uL (130-400); RDW Standard Deviation 49.4 fL (36.4-46.3); Red Blood Count 3.79 M/uL (4.70-6.10); White Blood Count 6.02 K/ul (4.8-10.8)
[2024-11-16 07:20] LABS: Anion Gap 3.0 (3-11); Blood Urea Nitrogen 14.0 mg/dl (6-23); Calcium 8.6 mg/dl (8.6-10.3); Carbon Dioxide 30.0 mmol/L (21-32); Chloride 105.0 mmol/L (98-107); Creatine Kinase 133.0 U/L (30-223); Creatinine Clr Calc Pharmacy 97.0 ml/min; Glucose 87.0 mg/dl (70-99(Fasting)); Magnesium 2.2 mg/dl (1.7-2.4); Potassium 3.8 mmol/L (3.5-5.1); Sodium 138.0 mmol/L (136-145)
[2024-11-16 07:57] VITALS: RESP 17
[2024-11-16] MEDS: THIAMINE HCL 100 MG TAB PO SCH (08:40)
[2024-11-16] MEDS: FOLIC ACID 1 MG TAB PO SCH (08:40)
[2024-11-16] MEDS: ADVANCED PROBIOTIC 625 MG CAPSULE PO SCH (08:40)
[2024-11-16] MEDS: MULTIVITAMIN TAB PO SCH (08:40)
[2024-11-16] MEDS: DAPTOmycin 600 MG in SYRINGE 0 ML IV SCH (08:40)
--- NOTE | 2024-11-16 10:05 | Hospitalist Progress Note ---
Date of Service November 16, 2024 Assessment & Plan (1) Paranoid schizophrenia: Plan Abscess of finger of right hand: Right index finger abscess with associated acute osteomyelitis involving distal phalanx, was recently admitted for this. ID has evaluated, continue patient's IV daptomycin. CPK in AM. Labs in AM. 11/16 healing well Continue IV daptomycin Paranoid Schizophrenia: patient with active visual/auditory hallucination. Patient reports hearing voices from radio and feels that he is being tracked by [employer] and bugs has been planted at his house. He even ripped apart patient's mother's house to try to find planted bugs per patient's sister Narda. Psychiatry consult placed, notified. Will continue with home medications to begin with as he has not been taking any home medications per patient's daughter sister. 11/16 awaiting psych evaluation DVT prophylaxis: Heparin subcu Full code Admission and Anticipated Discharge Date Admission Date: November 15, 2024 Subjective seen resting in bed, watching tv comfortable flat affect states he feels fine overall states he is "pissed", "Because of being here, among other things" denies pain on the right index finger No other symptoms Review of Systems Review of Systems: all noted and negative except for above Physical Exam Physical Exam: General- oriented x 3, not in distress, speaks in sentences with no effort or accessory muscle use Eyes- anicteric Neck- no JVD Lungs- clear breath sounds bilaterally, no rales/wheezes Heart- normal rate, regular rhythm; no murmurs Abdomen- normal bowel sounds, nondistended, soft, nontender Extremities- no pretibial edema, no calf tenderness R index finger: (+) scabbed wound- healing well, very mild edema and erythema Neuro- alert, oriented x 3; no gross focal neurologic deficits Skin- warm & dry Results & Data Results & Data Vital Signs (Past 12 Hours) Vital Signs Temp Pulse Pulse Resp BP Pulse Ox O2 Del Method 11/16/24 07:56 36.6 C 60 17 111/65 97 Room Air 11/16/24 06:45 67 11/16/24 03:46 74 18 132/85 97 Room Air 11/15/24 22:55 36.7 C 74 16 107/68 97 Room Air all noted and reviewed including below
[2024-11-16 11:06] VITALS: PULSE 61; TEMP 98.1
--- NOTE | 2024-11-16 11:32 | Psychiatric Consultation ---
Date of Consultation November 16, 2024 Impression / Recommendations Impression Pt guarded and irritable on exam. Did not appear to be internally preoccupied or responding to internal stimuli. Presented linear thought process on exam with no significant thought disorganization. Recent concern for persecutory delusions and per history has been present at baseline. He presented a discharge plan that involved getting IV antibiotics through outpatient clinic. Given concern for paranoid delusions and recent change in baseline would benefit from increase in olanzapine to 10mg HS. He does not meet criteria for 302 involuntary commitment at this time and is unwilling to come in for a voluntary psychiatric admission. Overall, I spent a total of 80 minutes with this case including review of chart records, nursing report, review of lab work, direct evaluation of the patient at bedside, counseling the patient, discussion of the patient with the hospitalist provider, discussion with the psychiatric liaison during clinical rounds, and documentation in the electronic health record. (1) Paranoid schizophrenia: (2) Osteomyelitis of finger of right hand: Plan 11/16/24: Increase Olanzapine to 10mg HS No indication for bedside sitter Does not meet criteria for involuntary commitment Psych History Identifying Data GREGORYUSERADRIEL is a 63-year-old unemployed male, never and without children who is currently living at home with his mother and dog.He has a past psychiatric history of 2 commitments at this [facility] (January 2010, September 25, 2010), with a diagnosis of history of paranoid schizophrenia, and a suicide attempt he had starvation in 2010. Psychiatry consulted for evaluation of psychosis and safety assessment. Chief Complaint Psychosis History of Present Illness Chart review: Previously hospitalization at [facility] on 02/04/10 after father was dx with cancer and presented decompensated psychosis. Treated with risperidone and clonazepam. Recently seen by consults service on 11/03/24 and 11/05/24 and found to not meet criteria for involuntary commitment and exhibited symptoms were chronic at baseline; presented limited insight and was not interested in treatment. Recently patient burned his finger at work on purpose after a dispute with a co-worker. Was at the [facility] clinic for IV antibiotics and sent to the hospital due to psychosis concerns. Recent endorsement of being watched and followed by foreign governments. On interview, the pt does not establish eye contact and watches TV. Does not present any complaints. Says he can return home to stay with his friends. Reports working at [employer] and touched a hot pain because he was "pissed off" and would not disclose further details. Presents a plan to continue treatment and spend time with his friends. Says he can get transport to get his treatment. Reports being angry and when I ask about says its not my business. Denies SI, HI. Denies urinary symptoms. Reports past risperidone was not effective. Asks me to leave. 11/15/24 20:17 - Psychiatric Liason Note by Sujit Villanueva Met with patient for consult service. Pt known to service (recently). Pt sitting in bed, watching tv and eating ice cream. Pt bright and pleasant, inappropriately laughing throughout conversation. Pt is alert and oriented x4 but a poor historian. Pt willing to speak with liaison at this time. Pt initially denying hallucinations but then later states he is still seeing " angels." Pt also mentioned seeing a black spot" out of his left eye. When asked about SI pt states that he is not really sure but ultimately says yes. Pt denies having a plan at this time stating "not yet." Pt jonn for safety at this time. Pt stating that he is not sure about HI either but then states he has no intentions to harm anyone. Denies SIB. Pt recalls being admitted to [facility] 11/02 then leaving [place] 11/05 "to shave and shower." Pt states he lives with his mom and dog. Pt states "I'm not going back." Pt also making delusional statements of someone having "a master coley to my car." Pt stating they can have the car, he just wants the tires." Pt states that everyone is against him including family and friends. Pt recalls staying at his friends house the other night and sleeping on the porch. Pt states "I was trying to not wake them up." Pt states since last hospital stay he has been "surviving." Pt denies any recent job interviews. Pt states recently he has been communicating with his neighbor but did not specify. Pt also states having police harassing him "thinking I'm insane." Pt states having charges against him for harassment from his old job. 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 Pt denies substance use besides minimal alcohol but has not drank anything in a month. Pt denies access to firearms. Pt denies taking any prescription medications at home. 11/16/24 10:31 (created 11/16/24 12:44) - Psychiatric Liason Note by Kareen Tanner Rounded on patient with Dr. Padilla. Patient is alert and oriented x3. Patient currently denies SI and HI. He reports not sleeping well because his jaw is sore. When asked where the pain was, he massaged the TMJ area on both sides of his face. He reports that he grinds his teeth. The patient also reports that he is currently living with friends in [place] and that he would like to return to living with them for a while upon discharge. Adriel reports that he has been having conflict with his family, but declined to elaborate. He also would not go into detail in regards to what happened to his finger and the events that led up to him getting fired from his last job. The patient is irritable and told this technical writer and editor and Dr. Padilla to get the fuck out two times during the interaction. Please see Dr. Solis note for recommendations. Allergies Allergy/AdvReac Type Severity Reaction Status Date / Time vancomycin Allergy Redness of Verified 11/15/24 08:31 Skin Home Medications Medication Instructions Recorded Confirmed Type L.acidop,casei,lactis,rham-B.lact,alpa 1 cap PO DAILY #30 caps 11/05/24 11/15/24 Rx 625 mg (10 billion cell) capsule (Advanced Probiotic) daptomycin 500 mg intravenous 500 mg IV DAILY 6 weeks 11/05/24 11/15/24 Rx solution folic acid 1 mg tablet 1 mg PO QAM #30 tabs 11/05/24 11/15/24 Rx melatonin 3 mg tablet 3 mg PO HS PRN sleep #30 tabs 11/05/24 11/15/24 Rx multivitamin with folic acid 400 1 tab PO QAM #30 tabs 11/05/24 11/15/24 Rx mcg tablet (Daily-Jose (with folic acid)) thiamine HCl (vitamin B1) 100 mg 100 mg PO QAM #30 tabs 11/05/24 11/15/24 Rx tablet olanzapine 10 mg tablet 10 mg PO HS 30 days #30 tabs 11/16/24 Rx Patient History Medical History MDD (major depressive disorder) HLD (hyperlipidemia) Schizophrenia Social History Smoking Status: Never smoker Second Hand Exposure: Yes; Do You Dip or Chew Tobacco: No; Hx Alcohol Use: Yes Alcohol type: other Hx Substance Use: No Preferred Language: Grenadian Communication Ability: Effective Tricot Knitter Required: No Beliefs That Will Affect Care: None Current Living Situation: Other Current Living Situation Comment: temporarily with friends Feels Safe at Home: Yes Assistive Devices: None Physical Exam Mental Examination: Appearance: Disheveled Eye Contact: No Eye Contact Motor Behavior: Unremarkable Speech: Poverty of Speech Mood: Irritable Affect: Angry Thought Process: Intact and Linear Thought Content: Obsessional Thoughts (persecutory delusions) Hallucinations: None Insight: Poor Judgement: Poor Vital Signs (Past 24 Hours): Last Vital Signs Temp 36.7 C 11/16/24 11:05 Pulse 61 11/16/24 11:05 Resp 17 11/16/24 11:05 BP 115/72 11/16/24 11:05 Pulse Ox 97 11/16/24 11:05 O2 Del Method Room Air 11/16/24 11:05 Results & Data (PSY) Medications Administered Folic Acid (Folic Acid 1 Mg Tab) [facility] Stop: 12/16/24 08:59 Last Admin: 11/16/24 08:40 Dose: 1 mg Documented By: CODY Heparin Sodium (Porcine) (Heparin Sod 5,000 Unit/0.5 Ml Vial) 5,000 units SQ Q12 STEFAN Stop: 12/15/24 20:59 Last Admin: 11/16/24 08:40 Dose: Not Given Documented By: Admin: 11/15/24 20:49 Dose: 5,000 units Documented By: LIZZIE Daptomycin 600 mg/ Syringe 12 mls @ 5 mls/min IV Q24H COUNT INCLUDES THE [facility]; Protocol Stop: 12/28/24 08:59 Last Admin: 11/16/24 08:40 Dose: 5 mls/min Documented By: CODY Lactobacillus Acidophilus (Advanced Probiotic 625 Mg Capsule) 625 mg PO DAILY STEFAN Stop: 12/16/24 08:59 Last Admin: 11/16/24 08:40 Dose: 625 mg Documented By: CODY Multivitamins (Multivitamin Tab) 1 tab PO QAM STEFAN Stop: 12/16/24 08:59 Last Admin: 11/16/24 08:40 Dose: 1 tab Documented By: CODY Olanzapine (Olanzapine 2.5 Mg Tab) 2.5 mg PO STEFAN Stop: 12/15/24 20:59 Last Admin: 11/15/24 20:50 Dose: 2.5 mg Documented By: LIZZIE Thiamine HCl (Thiamine Hcl 100 Mg Tab) 100 mg PO QAM STEFAN Stop: 12/16/24 08:59 Last Admin: 11/16/24 08:40 Dose: 100 mg Documented By: C[place] [address] IN/OBS CONSULT LVL 5,80M Patient Type New History Comprehensive Exam Comprehensive Diagnoses Paranoid schizophrenia F20.0 Osteomyelitis of finger of right hand M86.9
--- NOTE | 2024-11-16 12:55 | Discharge Summary ---
Discharge Summary Date of Service November 16, 2024 Principal Dx & Hospital Course #1 = Principal Diagnosis (1) Paranoid schizophrenia: Plan Abscess of finger of right hand: Right index finger abscess with associated acute osteomyelitis involving distal phalanx, was recently admitted for this. ID has evaluated, continue patient's IV daptomycin. CPK in AM. Labs in AM. 11/16 healing well Continue IV daptomycin CMP, CPK unremarkable has truncal rash but was documented to have maculopapular rash with IV vancomycin during last admission monitor closely Paranoid Schizophrenia: patient with active visual/auditory hallucination. Patient reports hearing voices from radio and feels that he is being tracked by [employer] and bugs has been planted at his house. He even ripped apart patient's mother's house to try to find planted bugs per patient's sister Narda. Psychiatry consult placed, notified. Will continue with home medications to begin with as he has not been taking any home medications per patient's daughter sister. 11/16 awaiting psych evaluation DVT prophylaxis: Heparin subcu Full code Notes For Next Care Provider Medication Changes From Visit Olanzapine increased to 10 mg at bedtime Admission HPI Per Admitting Provider 64-year-old male with PMH of paranoid schizophrenia, noncompliant with home medications, MDD, HLD who was recently admitted for right index finger osteomyelitis and was getting IV daptomycin daily at [facility] was sent from [facility] after IV antibiotic today to the ED due to note of abnormal behavior. Patient was accompanied by his friend Kylie today to clinic who stated that patient has not been taking his home medications, patient presented to her house today morning apparently at 1 am, waited outside and she noticed him around 6 a m, when patient was stating that he is being tracked by [employer] and he has been hearing different voices and hence has been running away from them. Because of the concern that patient is running away from his voices, he was deemed a danger to self and to others if he is driving his vehicle's back to home. Patient's mother is not aware of what patient has been doing regarding his daily IV antibiotic or home psychiatric medications. She could not provide any history and suggested that I chat with patient's Sister Narda [[phone]]. Patient's sister Narda states that patient has not been taking his home medication at all for very long and not again after last discharge from hospital. She also states that patient has been ripping apart their mother's home because the patient feels that bugs has been implanted in the house and he is being tracked by the [employer]/he is hearing voices from the radio. And she feels that patient is danger to self and others. Patient himself states that he has been taking his IV antibiotics daily but he feels that he does not need his oral psychiatric medications and he is not taking them at all. Patient denies fever/sore throat/cough/chest pain/palpitations/belly pain/nausea/vomiting/diarrhea. Patient is incoherent and not cooperative during bedside exam and history taking but not violent. Patient denies suicidal ideation or homicidal ideation. Patient lacks insight. History was taken from discussion with ED physician, chart review, from patient himself, from patient's friend Kylie over the phone [[phone]], from patient's sister Narda over the phone [[phone]] and from patient's mother Vanessa over the phone. Patient's prior home medications reviewed and resumed. Patient's IV antibiotic resumed, will get CPK in AM. Patient's labs today reviewed, fairly WNL. CTA head and CXR with no acute finding. Admission Exam Per Admitting Provider GENERAL: Alert and awake, noncooperative, nonviolent, denies SI/HI, lacks insight, incoherent. NAD, on RA. HEENT: No pallor, no icterus. Pupils equal, round and reactive to light. Oral mucosa moist. NECK: No JVD, no neck masses. HEART: S1 and S2 heard. Regular rate and rhythm. No murmur, no gallop. RESPIRATORY SYSTEM: Normal AP diameter. No accessory muscle use. No wheezing, no crackles. ABDOMEN: Soft, bowel sounds present, nontender, no distention. CENTRAL NERVOUS SYSTEM: No facial droop. Speech is clear. Obeys simple commands. Moves extremities. EXTREMITIES: No edema, no erythema seen. Rt index finger w/ scabbed wound, minimal erythema, no streaking/non tender/no warmth/no drainage. Discharge Exam General- oriented x 3, not in distress, speaks in sentences with no effort or accessory muscle use Eyes- anicteric Neck- no JVD Lungs- clear breath sounds bilaterally, no rales/wheezes Heart- normal rate, regular rhythm; no murmurs Abdomen- normal bowel sounds, nondistended, soft, nontender faint erythema around abdomen Extremities- no pretibial edema, no calf tenderness R index finger: (+) scabbed wound- healing well, very mild edema and erythema Neuro- alert, oriented x 3; no gross focal neurologic deficits Skin- warm & dry Updated Medication List Medication Instructions Recorded Confirmed Type L.acidop,casei,lactis,rham-B.lact,alpa 1 cap PO DAILY #30 caps 11/05/24 11/15/24 Rx 625 mg (10 billion cell) capsule (Advanced Probiotic) daptomycin 500 mg intravenous 500 mg IV DAILY 6 weeks 11/05/24 11/15/24 Rx solution folic acid 1 mg tablet 1 mg PO QAM #30 tabs 11/05/24 11/15/24 Rx melatonin 3 mg tablet 3 mg PO HS PRN sleep #30 tabs 11/05/24 11/15/24 Rx multivitamin with folic acid 400 1 tab PO QAM #30 tabs 11/05/24 11/15/24 Rx mcg tablet (Daily-Jose (with folic acid)) olanzapine 2.5 mg tablet 2.5 mg PO HS #30 tabs 11/05/24 11/15/24 Rx thiamine HCl (vitamin B1) 100 mg 100 mg PO QAM #30 tabs 11/05/24 11/15/24 Rx tablet olanzapine 10 mg tablet 10 mg PO HS 30 days #30 tabs 11/16/24 Rx Hospital Stay Data Consultations 11/15/24 13:26 ED Decision to Admit Stat 11/15/24 13:47 Consult Psychiatry Routine Diagnostic Imagining Performed Laboratory Results WBC 6.02 K/ul (4.8-10.8) 11/16/24 06:21 RBC 3.79 M/uL (4.70-6.10) L 11/16/24 06:21 Hgb 11.8 g/dl (14.0-18.0) L 11/16/24 06:21 Hct 35.1 % (42.0-52.0) L 11/16/24 06:21 MCV 92.6 fL (80.0-100.0) 11/16/24 06:21 MCH 31.1 pg (25.0-34.0) 11/16/24 06:21 MCHC 33.6 g/dL (32.0-36.0) 11/16/24 06:21 RDW Std Deviation 49.4 fL (36.4-46.3) H 11/16/24 06:21 RDW Coeff of Iker 14.6 % (11.5-14.5) H 11/16/24 06:21 Plt Count 214 K/uL (130-400) 11/16/24 06:21 MPV 10.7 fL (9.4-12.4) 11/16/24 06:21 Immature Gran % (Auto) 1.4 % 11/15/24 09:07 Neut % (Auto) 72.2 % 11/15/24 09:07 Lymph % (Auto) 19.9 % 11/15/24 09:07 [place] % (Auto) 0.8 % 11/15/24 09:07 Eos % (Auto) 2.7 % 11/15/24 09:07 Baso % (Auto) 3.0 % 11/15/24 09:07 Neut # (Auto) 8.22 K/uL (1.40-6.50) H 11/15/24 09:07 Lymph # (Auto) 2.26 K/uL (1.20-3.40) 11/15/24 09:07 [place] # (Auto) 0.09 K/uL (0.11-0.59) L 11/15/24 09:07 Eos # (Auto) 0.31 K/uL (0.00-0.50) 11/15/24 09:07 Baso # (Auto) 0.34 K/uL (0.00-0.20) H 11/15/24 09:07 Immature Gran # (Auto) 0.16 K/uL (0.01-0.20) 11/15/24 09:07 Polychromasia 1+ 11/15/24 09:07 Sodium 138 mmol/L (136-145) 11/16/24 06:21 Potassium 3.8 mmol/L (3.5-5.1) 11/16/24 06:21 Chloride 105 mmol/L (98-107) 11/16/24 06:21 Carbon Dioxide 30 mmol/L (21-32) 09/08/25 06:21 Anion Gap 3 (3-11) 11/16/24 06:21 BUN 14 mg/dl (6-23) 11/16/24 06:21 Creatinine 0.86 mg/dl (0.6-1.4) 11/16/24 06:21 Est Cr Clr Drug Dosing 97.0 ml/min 11/16/24 06:21 eGFR 97.90 11/16/24 06:21 BUN/Creatinine Ratio 16.3 (10-20) 11/16/24 06:21 Glucose 87 mg/dl (70-99(Fasting)) 11/16/24 06:21 Calcium 8.6 mg/dl (8.6-10.3) 11/16/24 06:21 Phosphorus 2.6 mg/dl (2.5-4.9) 11/16/24 06:21 Magnesium 2.2 mg/dl (1.7-2.4) 11/16/24 06:21 Total Bilirubin 0.6 mg/dl (0.2-1.0) 11/15/24 09:07 AST 25 U/L (13-39) 11/15/24 09:07 ALT 17 U/L (7-52) 11/15/24 09:07 Alkaline Phosphatase 99 U/L (34-104) 11/15/24 09:07 Total Creatine Kinase 133 U/L (30-223) 11/16/24 06:21 Troponin I High Sens 4.8 pg/ml (0-20) 11/15/24 09:07 Total Protein 7.6 gm/dl (6.0-8.3) 11/15/24 09:07 Albumin 4.1 gm/dl (3.4-5.0) 11/15/24 09:07 Globulin 3.5 gm/dl (2.5-4.0) 11/15/24 09:07 Albumin/Globulin Ratio 1.2 (0.9-2) 11/15/24 09:07 TSH 1.566 uIu/ml (0.300-4.500) 11/15/24 09:07 Urine Color Yellow 11/15/24 10:31 Urine Appearance Clear (Clear) 11/15/24 10:31 Urine pH 6.0 (4.5-7.5) 11/15/24 10:31 Ur Specific Bricelyn 1.009 (1.000-1.030) 11/15/24 10:31 Urine Protein Negative (Negative) 11/15/24 10:31 Urine Glucose (UA) Negative (Negative) 11/15/24 10:31 Urine Ketones Negative (Negative) 11/15/24 10:31 Urine Blood Negative (Negative) 11/15/24 10:31 Urine Nitrite Negative (Negative) 11/15/24 10:31 Urine Bilirubin Negative (Negative) 11/15/24 10:31 Urine Urobilinogen Negative (Negative) 11/15/24 10:31 Ur Leukocyte Esterase 1+ (Negative) H 11/15/24 10:31 Urine WBC (Auto) 6-10 /hpf (0-5) H 11/15/24 10:31 Urine RBC (Auto) 0-2 /hpf (0-2) 11/15/24 10:31 U Hyaline Cast (Auto) 0-2 /lpf (0-2) 11/15/24 10:31 U Epithel Cells (Auto) 0-2 /hpf (0-2) 11/15/24 10:31 Urine Bacteria (Auto) None Seen (None Seen) 11/15/24 10:31 Urine Comment 11/15/24 10:31 Salicylates < 3.0 mg/dl (3.0-30) L 11/15/24 09:07 Urine Opiates Screen Neg (Neg) 11/15/24 10:31 Ur Methadone, Qual Neg (Neg) 11/15/24 10:31 Urine Fentanyl Screen Neg (Neg) 11/15/24 10:31 Acetaminophen < 3 ug/ml (10-30) L 11/15/24 09:07 Urine Barbiturates Neg (Neg) 11/15/24 10:31 Ur Phencyclidine (PCP) Neg (Neg) 11/15/24 10:31 U Amphetamin/Meth Scrn Neg (Neg) 11/15/24 10:31 MDMA (Ecstasy) Screen Neg (Neg) 11/15/24 10:31 U Benzodiazepines Scrn Neg (Neg) 11/15/24 10:31 Ur Cocaine Metabolite Neg (Neg) 11/15/24 10:31 U Marijuana (THC) Screen Neg (Neg) 11/15/24 10:31 Ethyl Alcohol mg/dL < 10.0 mg/dl (<10.0) 11/15/24 09:07 SARS-CoV-2, RNA, NAAT NEGATIVE (NEGATIVE) 11/15/24 09:07 Impressions Chest X-Ray 11/15/24 08:51 XR chest 1V portable CLINICAL HISTORY: med clearance COMPARISON STUDY: Chest radiograph November 05, 2024. FINDINGS: Lung volumes are normal. Lungs are clear. There is no pneumothorax or pleural effusion. Cardiac size is normal. Mediastinal contours are normal. There is no evidence for pulmonary edema. Tip of right PICC projects over the SVC. IMPRESSION: No acute cardiopulmonary findings. ACT 112: Negative or not required by law. Electronically signed by: Marcello Dixon M.D. 11/15/2024 9:[address] 11/15/24 08:51 CT SCAN OF THE BRAIN WITHOUT IV CONTRAST CLINICAL HISTORY: Altered mental status. COMPARISON STUDY: Head CT November 01, 2024. TECHNIQUE: Unenhanced axial CT scan of the brain was performed from the vertex to the skull base. A dose lowering technique was utilized adhering to the principles of ALARA. CT DOSE: 625.8 mGy.cm FINDINGS: Brain parenchyma: No acute intracranial hemorrhage, midline shift or mass effect is present. Koch-white matter differentiation is preserved. There are no extra- axial fluid collections. There are no findings to suggest acute dural sinus thrombosis or acute territorial infarct. Ventricles, sulci, cisterns: There is no hydrocephalus. The basal cisterns are patent. Calvarium: Unremarkable. Sinuses and mastoids: The visualized paranasal sinuses are clear. The mastoid air cells are well pneumatized. Orbits: The bony orbits are grossly intact. IMPRESSION: No acute intracranial findings. ACT 112: Negative or not required by law. Electronically signed by: Marcello Dixon M.D. 11/15/2024 9:44 AM Pending Results Patient Have Any Pending Studies at Discharge: No Discharge Instructions Given to Patient (Per Discharging Provider) PLEASE REFER TO YOUR NEW MEDICATION LIST AND FOLLOW INSTRUCTIONS CAREFULLY. YOUR NEW MEDICATIONS INCLUDE: Increase your olanzapine 2.5 mg at bedtime to 10 mg at bedtime. PLEASE CALL YOUR PRIMARY CARE PHYSICIAN OR RETURN TO THE ER IF WITH WORSENING OF SYMPTOMS, INCLUDING Confusion, changes in behavior, drowsiness, Fever /chills, worsening of rashes, Etc. FOLLOW UP WITH PRIMARY CARE PHYSICIAN OUTLINED ABOVE. Total Time Total Time Spent Total Time Spent (In Minutes): 55 minutes
[2024-11-16 13:24] VITALS: BP 120/63
== END 2024-11-16 14:12 | disposition home or self-care (01) | DRG 885 ==
LOC: ED 08:24 → EDINP 13:48 → SUATTDRO 15:48 → 2N 16:42

== ENCOUNTER 2024-11-19 20:16 | Inpatient (IN) ==
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
[2024-11-19 21:31] LABS: Alanine Aminotransferase 18.0 U/L (7-52); Albumin Globulin Ratio 1.2 (0.9-2); Alkaline Phosphatase 92.0 U/L (34-104); Bilirubin,Total 0.7 mg/dl (0.2-1.0); Blood Urea Nitrogen 15.0 mg/dl (6-23); Calcium 9.7 mg/dl (8.6-10.3); Carbon Dioxide 28.0 mmol/L (21-32); Creatinine Clr Calc Pharmacy 70.3 ml/min; Globulin 3.7 gm/dl (2.5-4.0); Glucose 88.0 mg/dl (70-99(Fasting)); Total Protein 8.1 gm/dl (6.0-8.3)
[2024-11-19 21:36] LABS: Acetaminophen < 3 ug/ml (10-30); Salicylate < 3.0 mg/dl (3.0-30)
[2024-11-19 21:39] LABS: Hematocrit (blood only) 38.0 % (42.0-52.0); Hemoglobin 13.0 g/dl (14.0-18.0); Mean Corpuscular Hemoglobin 30.8 pg (25.0-34.0); Mean Corpuscular Volume 90.0 fL (80.0-100.0); Platelet Count 275 K/uL (130-400); RDW Standard Deviation 46.3 fL (36.4-46.3); Red Blood Count 4.22 M/uL (4.70-6.10); White Blood Count 9.54 K/ul (4.8-10.8)
[2024-11-19 21:46] LABS: Thyroid Stimulating Hormone 1.962 uIu/ml (0.300-4.500)
[2024-11-19 21:54] LABS: Anion Gap 10.0 (3-11); Chloride 103.0 mmol/L (98-107); Potassium 4.0 mmol/L (3.5-5.1); Sodium 141.0 mmol/L (136-145)
[2024-11-19 22:10] LABS: Immature Granulocytes # (auto) 0.08 K/uL (0.01-0.20); Immature Granulocytes % (auto) 0.8 %; Stomatocytes 1+
[2024-11-19] MEDS: OLANZapine 10 MG TAB PO STA (22:34)
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
[2024-11-20] MEDS ORDERED: POLYETHYLENE (MIRALAX) 17 GM PACK PO PRN (00:34)
[2024-11-20 02:07] LABS: Appearance Urine Cloudy (Clear); Bacteria Urine Automated None Seen (None Seen); Cast Urine Automated 0-2 /lpf (0-2); Epithelial Cell Urine Auto 0-2 /hpf (0-2); Glucose Urine UA Negative (Negative); RBC Urine Automated 0-2 /hpf (0-2)
[2024-11-20] MEDS: MELATONIN 3 MG TAB PO PRN (02:38)
[2024-11-20 02:49] LABS: Amphetamines+Metham, Urine Neg (Neg); MDMA (Ecstacy), Urine Neg (Neg); Marijuana, Urine Neg (Neg)
[2024-11-20 04:56] LABS: Hematocrit (blood only) 35.2 % (42.0-52.0); Hemoglobin 11.5 g/dl (14.0-18.0); Mean Corpuscular Hemoglobin 29.9 pg (25.0-34.0); Mean Corpuscular Volume 91.7 fL (80.0-100.0); Platelet Count 196 K/uL (130-400); RDW Standard Deviation 47.6 fL (36.4-46.3); Red Blood Count 3.84 M/uL (4.70-6.10); White Blood Count 6.13 K/ul (4.8-10.8)
[2024-11-20 05:15] LABS: Anion Gap 5 (3-11); Blood Urea Nitrogen 15 mg/dl (6-23); Calcium 8.6 mg/dl (8.6-10.3); Carbon Dioxide 30 mmol/L (21-32); Chloride 105 mmol/L (98-107); Creatine Kinase 325 U/L (30-223); Creatinine Clr Calc Pharmacy 75.1 ml/min; Glucose 86 mg/dl (70-99(Fasting)); Magnesium 2.2 mg/dl (1.7-2.4); Potassium 3.5 mmol/L (3.5-5.1); Sodium 140 mmol/L (136-145)
[2024-11-20 05:37] LABS: Immature Granulocytes # (auto) 0.05 K/uL (0.01-0.20); Immature Granulocytes % (auto) 0.8 %; RBC Morphology Unremarkable
[2024-11-20] MEDS: DAPTOmycin 500 MG in SYRINGE 0 ML IV SCH (08:43)
[2024-11-20] MEDS: ADVANCED PROBIOTIC 625 MG CAPSULE PO SCH (08:50)
[2024-11-20] MEDS: MULTIVITAMIN TAB PO SCH (08:50)
[2024-11-20] MEDS: FOLIC ACID 1 MG TAB PO SCH (08:50)
[2024-11-20] MEDS: THIAMINE HCL 100 MG TAB PO SCH (08:50)
[2024-11-20] MEDS: ENOXAPARIN INJ 40 MG/0.4 ML SYR SQ SCH (08:52)
--- NOTE | 2024-11-20 10:22 | XRay Report ---
XR chest 2V PA/lateral CLINICAL HISTORY: for MRI COMPARISON STUDY: 11/15/2024 FINDINGS: Stable right PICC. Heart size and pulmonary vasculature are normal. No consolidation or ple ural effusion. No metallic foreign body or metallic certified medical asst seen at the chest. IMPRESSION: No acute findings. ACT 112: Negative or not required by law. Electronically signed by: Danny Doss M.D. 11/20/2024 10:21 AM
--- NOTE | 2024-11-20 10:23 | XRay Report ---
XR skull for MRI CLINICAL HISTORY: for MRI COMPARISON STUDY: None FINDINGS: No metallic foreign body seen at the orbits. IMPRESSION: No metallic foreign body seen at the orbits. ACT 112: Negative or not required by law. Electronically signed by: Danny Doss M.D. 11/20/2024 10:21 AM
--- NOTE | 2024-11-20 10:23 | XRay Report ---
KUB HISTORY: for MRI COMPARISON STUDY: None FINDINGS: There is moderate retained stool. No bowel obstruction seen. No metallic foreign body or me tallic medical receptionist assistant seen at the abdomen or pelvis. IMPRESSION: No acute findings. ACT 112: Negative or not required by law. The above report was generated using voice recognition software. It may contain grammatical, syntax o r spelling errors. Electronically signed by: Danny Doss M.D. 11/20/2024 10:22 AM
--- NOTE | 2024-11-20 11:51 | Psychiatric Consultation ---
Date of Consultation November 20, 2024 Impression / Recommendations Impression 64 y/o M h/o of paranoid schizophrenia, osteomyelitis recently discharged from the hospital presents with threatening behavior and non-adherence to oral antibiotics. Psychiatry consulted for evaluation. Patient presents with decompensated schizophrenia with significant thought disorganization and recent threatening behavior. Appears to be a shift from his baseline. Possible mood component. Recent osteomyelitis treatment for self inflicted wound and non-adherent to oral antibiotics. CK slightly elevated and likely from psychomotor agitation. No safe or rational discharge plan endorsed. Considered an imminent risk of harm to himself and others in his current condition and will pursue 303 involuntary commitment. Overall, I spent a total of 80 minutes with this case including review of chart records, nursing report, review of lab work, direct evaluation of the patient at bedside, counseling the patient, discussion of the patient with the hospitalist provider, discussion with the psychiatric liaison during clinical rounds, and documentation in the electronic health record. (1) Paranoid schizophrenia: (2) Threatening behavior: (3) Osteomyelitis of finger of right hand: Plan 11/20/24: Olanzapine 5mg QAM, 10mg HS Haldol 5mg Q6H PRN for agitation Lorazepam 2mg Q6H PRN for anxiety 303 involuntary commitment filed Plan for transfer to inpatient psychiatry once medically cleared Psych History Identifying Data 64 y/o M h/o of paranoid schizophrenia, osteomyelitis recently discharged from the hospital presents with threatening behavior and non-adherence to oral antibiotics. Psychiatry consulted for evaluation. Chief Complaint Psychosis History of Present Illness On interview pt is AO to "[facility]" "2024" and self. He presented non linear and disorganized speech. "Me went to neighbor to help with dog. Me watching harassment. Too much traffic. Neighbor told me to get off property." Reports having evidence of the neighbors tricks. "Me snap wire. phone shut off. 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 Reports not sleeping as he has been "busy during sleep." Reports mind playing games and asks if he can trust me. Said the last claudia wanted money. Allergies Allergy/AdvReac Type Severity Reaction Status Date / Time vancomycin Allergy Redness of Verified 11/15/24 08:31 Skin Home Medications Medication Instructions Recorded Confirmed Type L.acidop,casei,lactis,rham-B.lact,alpa 1 cap PO DAILY #30 caps 11/05/24 11/19/24 Rx 625 mg (10 billion cell) capsule (Advanced Probiotic) daptomycin 500 mg intravenous 500 mg IV DAILY 6 weeks 11/05/24 11/19/24 Rx solution folic acid 1 mg tablet 1 mg PO QAM #30 tabs 11/05/24 11/19/24 Rx melatonin 3 mg tablet 3 mg PO HS PRN sleep #30 tabs 11/05/24 11/19/24 Rx multivitamin with folic acid 400 1 tab PO QAM #30 tabs 11/05/24 11/19/24 Rx mcg tablet (Daily-Jose (with folic acid)) thiamine HCl (vitamin B1) 100 mg 100 mg PO QAM #30 tabs 11/05/24 11/19/24 Rx tablet olanzapine 10 mg tablet 10 mg PO HS 30 days #30 tabs 11/16/24 11/19/24 Rx Patient History Medical History MDD (major depressive disorder) HLD (hyperlipidemia) Schizophrenia Social History Smoking Status: Never smoker Second Hand Exposure: Yes; Do You Dip or Chew Tobacco: No; Hx Alcohol Use: Yes Alcohol type: other Hx Substance Use: No Preferred Language: Kazakh Communication Ability: Effective Sales Representative [employer] Required: No Beliefs That Will Affect Care: None Current Living Situation: Other Current Living Situation Comment: w/ friends Feels Safe at Home: Yes Assistive Devices: None Physical Exam Mental Examination: Appearance: Disheveled Eye Contact: Direct Eye Contact Motor Behavior: Restless Speech: Tangential, Slurred and Rambling Mood: Anxious Affect: Constricted Thought Process: Disorganized and Loose Associations Thought Content: Disorganized Hallucinations: Auditory Insight: Poor Judgement: Poor Vital Signs (Past 24 Hours): Last Vital Signs Temp 36.8 C 11/20/24 07:00 Pulse 85 11/20/24 07:00 Resp 20 11/20/24 07:00 BP 133/72 11/20/24 07:00 Pulse Ox 99 11/20/24 07:00 O2 Del Method Room Air 11/20/24 07:00 Results & Data (PSY) Medications Administered Enoxaparin Sodium (Enoxaparin Inj 40 Mg/0.4 Ml Syr) 40 mg SQ Q24H STEFAN Stop: 12/20/24 07:59 Last Admin: 11/20/24 08:52 Dose: Not Given Documented By: DAVID Folic Acid (Folic Acid 1 Mg Tab) 1 mg PO QAM STEFAN Stop: 12/20/24 08:59 Last Admin: 11/20/24 08:50 Dose: Not Given Documented By: DAVID Lactobacillus Acidophilus (Advanced Probiotic 625 Mg Capsule) 1,250 mg PO DAILY STEFAN Stop: 12/20/24 08:59 Last Admin: 11/20/24 08:50 Dose: Not Given Documented By: DAVID Melatonin (Melatonin 3 Mg Tab) 3 mg PO HS PRN PRN Reason: sleep Stop: 12/20/24 00:33 Last Admin: 11/20/24 02:38 Dose: 3 mg Documented By: CHAD Multivitamins (Multivitamin Tab) 1 tab PO QAM [facility] Stop: 12/20/24 08:59 Last Admin: 11/20/24 08:50 Dose: Not Given Documented By: DAVID Thiamine HCl (Thiamine Hcl 100 Mg Tab) 100 mg PO QAM [facility] Stop: 12/20/24 08:59 Last Admin: 11/20/24 08:50 Dose: Not Given Documented By: DAVID [place] [address] IN/OBS CONSULT LVL 5,80M Patient Type New History Detailed Exam Detailed Medical Decision Making High Complexity Diagnoses Paranoid schizophrenia F20.0 Threatening behavior R46.89 Osteomyelitis of finger of right hand M86.9
[2024-11-20] MEDS ORDERED: HALOPERIDOL LACTATE 5 MG/ML 1 ML VIAL IM PRN (13:47)
[2024-11-20] MEDS ORDERED: LORazepam 1 MG TAB PO PRN (13:47)
--- NOTE | 2024-11-20 13:48 | Hospitalist Progress Note ---
Date of Service November 20, 2024 Assessment & Plan (1) Paranoid schizophrenia: Plan: 64-year-old male with past medical history significant for diagnosis of paranoid schizophrenia, noncompliant with home medication, MDD, hyperlipidemia,on IV daptomycin for right index finger osteomyelitis comes because of psychosis. Patient was in the hospital in last week of October and was status post right index finger incision and drainage on 11/02/24. Cultures were growing MRSA. He developed micropapular skin lesions for IV vancomycin and it was discontinued and was discharged on IV daptomycin per ID recommendations for 6 weeks last dose to be on December 10, 2024. He was again admitted on November 15, 2024 for abnormal behavior and not taking his home medications. Evaluated by psychiatry. His Zyprexa was increased to 10 mg p.o. nightly. Patient was discharged on 11/16/2024. On the day of the admission, his neighbor thought he was not acting right and more paranoid. EMS was called. Paranoid schizophrenia Psychosis Not taking his medications at home One-on-one patient psychiatry evaluated the patient; recommended Zyprexa 5 mg at a.m., Zyprexa 10 mg at bedtime, Haldol 5 mg for agitation and Ativan for anxiety. Right index finger osteomyelitis Patient had undergone I&D of the abscess in October; culture were positive for MRSA. He was supposed to be on IV daptomycin until December 10, 2024. However, patient has been noncompliant due to mental health issue. Discussion was done with Dr. Adan walker from infectious disease; given that patient has noncompliance with IV therapy, elevated CK, normal CRP and ESR; he recommended switching over to Bactrim until December 16, 2024( one more week than anticipated end date of December 10, 2024). History of Alcohol use disorder Currently denies drinking alcohol Will monitor for withdrawal symptoms DVT prophylaxis Lovenox Disposition Medical floor Full code. Admission and Anticipated Discharge Date Admission Date: November 19, 2024 Subjective Patient seen in bedside. He is comfortable; not in distress. He denies fever, chills, chest pain, shortness of breath. Review of Systems Review of Systems: All systems reviewed & are unremarkable except as noted in Subjective Physical Exam Physical Exam: General- Not in distress Head- atraumatic Lungs- clear to auscultation no wheezing or crackles Heart- regular rhythm; no murmur, no gallop. Abdomen- normal bowel sounds, soft, mild diffuse discomfort , no distension. Extremities- no pretibial edema, no erythema seen. Right second finger with healed wound; slight erythema surrounding the finger. No warmth, increased tenderness. Neuro- alert, and wake ; no facial palsy; no dysarthria. Results & Data Results & Data Vital Signs (Past 12 Hours) Vital Signs Temp Pulse Resp BP Pulse Ox O2 Del Method 11/20/24 12:10 36.6 C 87 20 133/89 94 Room Air 11/20/24 07:00 36.8 C 85 20 133/72 99 Room Air
[2024-11-20] MEDS: OLANZapine 10 MG TAB PO SCH (20:18)
[2024-11-20] MEDS: SULFAMETHOXAZOLE/TRIMETHOPRIM DS 800/160MG TAB PO SCH (20:18)
[2024-11-20] MEDS: ACETAMINOPHEN 325 MG TAB PO PRN (23:35)
[2024-11-20] MEDS: diphenhydrAMINE Capsule 25 MG CAP PO ONE (23:44)
--- NOTE | 2024-11-21 12:41 | Hospitalist Progress Note ---
Date of Service November 21, 2024 Assessment & Plan (1) Paranoid schizophrenia: Plan: 64-year-old male with past medical history significant for diagnosis of paranoid schizophrenia, noncompliant with home medication, MDD, hyperlipidemia,on IV daptomycin for right index finger osteomyelitis comes because of psychosis. Patient was in the hospital in last week of October and was status post right index finger incision and drainage on 11/02/24. Cultures were growing MRSA. He developed micropapular skin lesions for IV vancomycin and it was discontinued and was discharged on IV daptomycin per ID recommendations for 6 weeks last dose to be on December 10, 2024. He was again admitted on November 15, 2024 for abnormal behavior and not taking his home medications. Evaluated by psychiatry. His Zyprexa was increased to 10 mg p.o. nightly. Patient was discharged on 11/16/2024. On the day of the admission, his neighbor thought he was not acting right and more paranoid. EMS was called. Paranoid schizophrenia Psychosis Not taking his medications at home One-on-one patient psychiatry evaluated the patient; recommended Zyprexa 5 mg at a.m., Zyprexa 10 mg at bedtime, Haldol 5 mg for agitation and Ativan for anxiety. Right index finger osteomyelitis Patient had undergone I&D of the abscess in October; culture were positive for MRSA. He was supposed to be on IV daptomycin until December 10, 2024. However, patient has been noncompliant due to mental health issue. Discussion was done with Dr. Adan walker from infectious disease; given that patient has noncompliance with IV therapy, elevated CK, normal CRP and ESR; he recommended switching over to Bactrim until December 16, 2024( one more week than anticipated end date of December 10, 2024). After receiving Bactrim, patient developed drug rash. Discussed with Dr. Bryant from infectious disease on 11/21; given patient is not able to be compliant with IV infusion,has a allergic reaction to Bactrim with rash. Patient is started on doxycycline 100 mg twice daily. Plan to monitor ESR, CRP weekly to monitor the response. History of Alcohol use disorder Currently denies drinking alcohol Will monitor for withdrawal symptoms DVT prophylaxis Lovenox Disposition Medical floor Full code. Admission and Anticipated Discharge Date Admission Date: November 19, 2024 Subjective Patient seen and examined at bedside. Overnight, patient had rash developed over his trunk and back. He reports that he is comfortable; denies any pain or discomfort Review of Systems Review of Systems: All systems reviewed & are unremarkable except as noted in Subjective Physical Exam Physical Exam: General- Not in distress Head- atraumatic Lungs- clear to auscultation no wheezing or crackles Heart- regular rhythm; no murmur, no gallop. Abdomen- normal bowel sounds, soft, mild diffuse discomfort , no distension. Extremities- no pretibial edema, no erythema seen. Right second finger with healed wound; slight erythema surrounding the finger. No warmth, increased tenderness. Neuro- alert, and wake ; no facial palsy; no dysarthria. Results & Data Results & Data Vital Signs (Past 12 Hours) Vital Signs Temp Pulse Resp BP Pulse Ox O2 Del Method 11/21/24 08:03 Room Air 11/21/24 07:44 36.8 C 92 H 18 102/66 96 Room Air
[2024-11-21] MEDS: DOXYCYCLINE HYCLATE 100 MG CAP PO SCH (13:44)
--- NOTE | 2024-11-21 13:44 | Psychiatric Progress Note ---
Date of Service November 21, 2024 Impression / Recommendations Impression 64 y/o M h/o of paranoid schizophrenia, osteomyelitis recently discharged from the hospital presents with threatening behavior and non-adherence to oral antibiotics. He is now on a 302 commitment due to exacerbation of psychosis with inability to attend to his current medical conditions. From previous provider: Patient presents with decompensated schizophrenia with significant thought disorganization and recent threatening behavior. Appears to be a shift from his baseline. Possible mood component. Recent osteomyelitis treatment for self inflicted wound and non-adherent to oral antibiotics. CK slightly elevated and likely from psychomotor agitation. No safe or rational discharge plan endorsed. Considered an imminent risk of harm to himself and others in his current condition and will pursue 303 involuntary commitment. A: Ongoing psychosis with paranoia. Also concern for possible history of intellectual disability. 303 commitment hearing scheduled for 11/24/2024. Given difficulty sleeping and increased somnolence this morning recommend adjustment of olanzapine dosing schedule. The patient remains hospitalized on a completed 302 involuntary commitment, with 303 commitment hearing scheduled for 11/24/2024. This patient must remain on safety precautions with a 1-on-1 and is unable to leave the hospital AMA. Overall, I spent a total of 60 minutes with this case including review of chart records, review of labwork, direct evaluation of the patient at bedside, counseling the patient, discussion of the patient with the hospitalist provider, discussion with the psychiatric liason during clinical rounds and documentation in the electronic health record. (1) Paranoid schizophrenia: (2) Threatening behavior: (3) Osteomyelitis of finger of right hand: Plan 11/21/2024: -Continue 1-on-1, he cannot leave AMA due to 302 commitment -Olanzapine 2.5mg qAM and 15mg HS -For behavioral emergency: haldol and ativan po or IM per previous recommendation -Psychiatric bed search once medically stable 11/20/24: Olanzapine 5mg QAM, 10mg HS Haldol 5mg Q6H PRN for agitation Lorazepam 2mg Q6H PRN for anxiety 303 involuntary commitment filed Plan for inpatient psychiatry treatment once medically cleared Interval History Identifying Information Adriel Orta is a 64 y/o M h/o of paranoid schizophrenia, osteomyelitis recently discharged from the hospital presents with threatening behavior and non-adherence to oral antibiotics. Psychiatry consulted for evaluation. Chief Complaint "I'm on a misson". Subjective Subjective Patient was seen & assessed and interval progress reviewed. This morning reports feeling tired and sleeping poorly overnight. Often refers to himself as "me". Describes that he has various plans including putting items up for sale, dealing with papers to "clean up" and then "me out of here after that". 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 Discusses wanting to angeline individuals at previous job that caused him to burn his finger. Cites "invasion of privacy" and concerns that people have been trying to frame him for gambling. Denies SI. Denies HI except "just for money for my finger". Fully oriented. 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 He's like to try a higher dose of olanzapine at bedtime to help with sleep. Denies any side effects from this. Physical Exam Vital Signs (Past 24 Hours) Last Vital Signs Temp 36.8 C 11/21/24 07:44 Pulse 92 H 11/21/24 07:44 Resp 18 11/21/24 07:44 BP 102/66 11/21/24 07:44 Pulse Ox 96 11/21/24 07:44 O2 Del Method Room Air 11/21/24 08:03 Results & Data ([facility]) Current Inpatient Medications Current Inpatient Medications: Current Inpatient Medications Acetaminophen (Acetaminophen 325 Mg Tab) 650 mg PO Q4H PRN PRN Reason: pain/fever Stop: 12/20/24 00:33 Last Admin: 11/20/24 23:35 Dose: 650 mg Doxycycline Hyclate (Doxycycline Hyclate 100 Mg Cap) 100 mg PO BID STEFAN Stop: 01/02/25 12:44 Enoxaparin Sodium (Enoxaparin Inj 40 Mg/0.4 Ml Syr) 40 mg SQ Q24H STEFAN Stop: 12/20/24 07:59 Last Admin: 11/21/24 11:31 Dose: 40 mg Folic Acid (Folic Acid 1 Mg Tab) 1 mg PO QAM STEFAN Stop: 12/20/24 08:59 Last Admin: 11/21/24 07:56 Dose: 1 mg Haloperidol Lactate (Haloperidol Lactate 5 Mg/Ml 1 Ml Vial) 5 mg IM Q6H PRN PRN Reason: Agitation Stop: 12/20/24 13:46 Lactobacillus Acidophilus (Advanced Probiotic 625 Mg Capsule) 1,250 mg PO DAILY STEFAN Stop: 12/20/24 08:59 Last Admin: 11/21/24 07:56 Dose: 1,250 mg Lorazepam (Lorazepam 1 Mg Tab) 2 mg PO Q6H PRN PRN Reason: anxiety Stop: 12/20/24 13:59 Melatonin (Melatonin 3 Mg Tab) 3 mg PO HS PRN PRN Reason: sleep Stop: 12/20/24 00:33 Last Admin: 11/21/24 00:33 Dose: 3 mg Multivitamins (Multivitamin Tab) 1 tab PO QAM STEFAN Stop: 12/20/24 08:59 Last Admin: 11/21/24 07:56 Dose: 1 tab Olanzapine (Olanzapine 10 Mg Tab) 10 mg PO HS STEFAN Stop: 12/20/24 20:59 Last Admin: 11/20/24 20:18 Dose: 10 mg Olanzapine (Olanzapine 10 Mg/2.1 Ml Sdv) 2.5 mg IM Q6H PRN PRN Reason: Agitation Stop: 12/20/24 00:33 Olanzapine (Olanzapine 5 Mg Tablet) 5 mg PO QAM STEFAN Stop: 12/21/24 08:59 Last Admin: 11/21/24 10:25 Dose: 5 mg Polyethylene Glycol (Polyethylene (Miralax) 17 Gm Pack) 17 gm PO DAILY PRN PRN Reason: Constipation Stop: 12/20/24 00:33 Thiamine HCl (Thiamine Hcl 100 Mg Tab) 100 mg PO QAM STEFAN Stop: 12/20/24 08:59 Last Admin: 11/21/24 07:56 Dose: 100 mg Trimethoprim/Sulfamethoxazole (Sulfamethoxazole/Trimethoprim Ds 800/160mg Tab) 1 tab PO Q12 STEFAN Stop: 12/18/24 20:59 Last Admin: 11/20/24 20:18 Dose: 1 tab
--- NOTE | 2024-11-21 15:28 | Magnetic Resonance Report ---
Exam: MR right hand without contrast. History: Second finger wound with redness. Evaluate for osteomyelitis. Comparison: Plain film correlate November 01, 2024. Technique: Single coronal STIR sequence without intravenous contrast was obtained and reviewed. Patient was unable to complete the exam. Findings: Marrow signal demonstrates focal increased fluid-sensitive signal involving the distal phalanx of the second digit. There is absence of normal distal phalangeal cortex at this level. There is diffuse increased fluid-sensitive signal involving the soft tissues extending from the mid phalanx to the distal phalanx with focal area of irregularity along the lateral distal soft tissues. Elements of increased fluid-sensitive signal along the first metacarpal region and what appears to be pisiform noted. Cortices appear to be intact. This is limited. Impression: 1. Limited evaluation with fluid sensitive marrow signal at the level of the distal phalanx of the second digit. Absence of normal cortex at this level. Findings worrisome for osteomyelitis. Again exam is limited with single sequence obtained. Recommend plain film correlation or CT. 2. Additional likely soft tissue defect distal second digit. Please see above for details. Electronically signed by Jay Jay Vallejo 11-21-2024 3:27 PM
[2024-11-22] MEDS: DAPTOmycin 600 MG in SYRINGE 0 ML IV SCH (11:15)
--- NOTE | 2024-11-22 13:39 | Hospitalist Progress Note ---
Date of Service November 22, 2024 Assessment & Plan (1) Paranoid schizophrenia: Plan: 64-year-old male with past medical history significant for diagnosis of paranoid schizophrenia, noncompliant with home medication, MDD, hyperlipidemia,on IV daptomycin for right index finger osteomyelitis comes because of psychosis. Patient was in the hospital in last week of October and was status post right index finger incision and drainage on 11/02/24. Cultures were growing MRSA. He developed micropapular skin lesions for IV vancomycin and it was discontinued and was discharged on IV daptomycin per ID recommendations for 6 weeks last dose to be on December 10, 2024. He was again admitted on November 15, 2024 for abnormal behavior and not taking his home medications. Evaluated by psychiatry. His Zyprexa was increased to 10 mg p.o. nightly. Patient was discharged on 11/16/2024. On the day of the admission, his neighbor thought he was not acting right and more paranoid. EMS was called. Paranoid schizophrenia Psychosis Not taking his medications at home One-on-one patient psychiatry evaluated the patient; recommended Zyprexa 5 mg at a.m., Zyprexa 10 mg at bedtime, Haldol 5 mg for agitation and Ativan for anxiety. Patient remains hospitalized on a completed 302 involuntary commitment with 303 commitment hearing on 11/24. Patient unable to leave AMA Right index finger osteomyelitis Patient had undergone I&D of the abscess in October; culture were positive for MRSA. He was supposed to be on IV daptomycin until December 10, 2024. However, patient has been noncompliant due to mental health issue. MRI of the hand shows finding consistent with osteomyelitis; though it was a limited exam with only 1 sequence obtained. Discussion was done with Dr. Arellano reviewed from infectious disease; given that patient has noncompliance with IV therapy, normal CRP and ESR; he recommended switching over to Bactrim until December 16, 2024( one more week than anticipated end date of December 10, 2024). After receiving Bactrim, patient developed drug rash. Discussed with Dr. Bryant/Dr. Arellano from infectious disease on 11/21; given patient is not able to be compliant with IV infusion,has a allergic reaction to Bactrim with rash. Recommend doxycycline 100 mg twice daily CK repeated on 11/22; is within normal limits. Restarted on daptomycin with plans to switch over to doxycycline at the time of the discharge. End date of doxycycline to be December 16, 2024 History of Alcohol use disorder Currently denies drinking alcohol Will monitor for withdrawal symptoms DVT prophylaxis Lovenox Disposition Medical floor Full code. Admission and Anticipated Discharge Date Admission Date: November 19, 2024 Subjective Patient seen and examined at bedside. He is more cooperative today; does not appear to be in any distress No significant events overnight Review of Systems Review of Systems: All systems reviewed & are unremarkable except as noted in Subjective Physical Exam Physical Exam: General- Not in distress Head- atraumatic Lungs- clear to auscultation no wheezing or crackles Heart- regular rhythm; no murmur, no gallop. Abdomen- normal bowel sounds, soft, mild diffuse discomfort , no distension. Extremities- no pretibial edema, no erythema seen. Right second finger with healed wound; slight erythema surrounding the finger. No warmth, increased tenderness. Neuro- alert, and wake ; no facial palsy; no dysarthria. Results & Data Results & Data Vital Signs (Past 12 Hours) Vital Signs Temp Pulse Resp BP Pulse Ox O2 Del Method 11/22/24 07:59 Room Air 11/22/24 07:08 36.6 C 77 18 100/62 100 Room Air
--- NOTE | 2024-11-22 16:10 | Psychiatric Progress Note ---
Date of Service November 22, 2024 Impression / Recommendations Impression 64 y/o M h/o of paranoid schizophrenia, osteomyelitis recently discharged from the hospital presents with threatening behavior and non-adherence to oral antibiotics. He is now on a 302 commitment due to exacerbation of psychosis with inability to attend to his current medical conditions. From previous provider: Patient presents with decompensated schizophrenia with significant thought disorganization and recent threatening behavior. Appears to be a shift from his baseline. Possible mood component. Recent osteomyelitis treatment for self inflicted wound and non-adherent to oral antibiotics. CK slightly elevated and likely from psychomotor agitation. No safe or rational discharge plan endorsed. Considered an imminent risk of harm to himself and others in his current condition and will pursue 303 involuntary commitment. A: Ongoing psychosis but paranoia and irritability is lessening. Tolerating olanzapine without any side effects. Mood appears more positive today. The patient remains hospitalized on a completed 302 involuntary commitment, with 303 commitment hearing scheduled for 11/24/2024. This patient must remain on safety precautions with a 1-on-1 and is unable to leave the hospital AMA. Overall, I spent a total of 50 minutes with this case including review of chart records, review of labwork, direct evaluation of the patient at bedside, counseling the patient, discussion of the patient with the hospitalist provider, discussion with the psychiatric liason during clinical rounds and documentation in the electronic health record. (1) Paranoid schizophrenia: (2) Threatening behavior: (3) Osteomyelitis of finger of right hand: Plan 11/22/2024: -Continue 1-on-1, he cannot leave AMA due to 302 commitment -Olanzapine 2.5mg qAM and 15mg HS -For behavioral emergency: haldol and ativan po or IM per previous recommendation -Psychiatric bed search once medically stable 11/21/2024: -Continue 1-on-1, he cannot leave AMA due to 302 commitment -Olanzapine 2.5mg qAM and 15mg HS -For behavioral emergency: haldol and ativan po or IM per previous recommendation -Psychiatric bed search once medically stable 11/20/24: Olanzapine 5mg QAM, 10mg HS Haldol 5mg Q6H PRN for agitation Lorazepam 2mg Q6H PRN for anxiety 303 involuntary commitment filed Plan for inpatient psychiatry treatment once medically cleared Interval History Identifying Information Adriel Orta is a 64 y/o M h/o of paranoid schizophrenia, osteomyelitis recently discharged from the hospital presents with threatening behavior and non-adherence to oral antibiotics. Psychiatry consulted for evaluation. Chief Complaint "Me use head before me answer". Subjective Subjective Patient was seen & assessed and interval progress reviewed. Reports his mood is good and that he's having a "wonderful day". References hallucinations of seeing " angels" and having a close relationship with God who he believes protects him while he drives by helping him work his cruise control in his car. He denies SI and HI. States he slept well and was not tired this morning with adjustment to olanzapine. He states "me slept good, me getting healthier". Physical Exam Vital Signs (Past 24 Hours) Last Vital Signs Temp 36.5 C 11/22/24 14:40 Pulse 72 11/22/24 14:40 Resp 20 11/22/24 14:40 BP 104/66 11/22/24 14:40 Pulse Ox 99 11/22/24 14:40 O2 Del Method Room Air 11/22/24 14:40 Results & Data ([facility]) Laboratory Results Laboratory Results - last 24 hr 11/22/24 07:17 Total Creatine Kinase 60 Current Inpatient Medications Current Inpatient Medications: Current Inpatient Medications Acetaminophen (Acetaminophen 325 Mg Tab) 650 mg PO Q4H PRN PRN Reason: pain/fever Stop: 12/20/24 00:33 Last Admin: 11/20/24 23:35 Dose: 650 mg Doxycycline Hyclate (Doxycycline Hyclate 100 Mg Cap) 100 mg PO BID STEFAN Stop: 01/02/25 12:44 Last Admin: 11/22/24 08:13 Dose: 100 mg Enoxaparin Sodium (Enoxaparin Inj 40 Mg/0.4 Ml Syr) 40 mg SQ Q24H STEFAN Stop: 12/20/24 07:59 Last Admin: 11/22/24 07:55 Dose: 40 mg Folic Acid (Folic Acid 1 Mg Tab) 1 mg PO QAM STEFAN Stop: 12/20/24 08:59 Last Admin: 11/22/24 07:54 Dose: 1 mg Haloperidol Lactate (Haloperidol Lactate 5 Mg/Ml 1 Ml Vial) 5 mg IM Q6H PRN PRN Reason: Agitation Stop: 12/20/24 13:46 Daptomycin 600 mg/ Syringe 12 mls @ 6 mls/min IV Q24H STEFAN; Protocol Stop: 01/03/25 09:59 Last Admin: 11/22/24 11:15 Dose: 6 mls/min Lactobacillus Acidophilus (Advanced Probiotic 625 Mg Capsule) 1,250 mg PO DAILY STEFAN Stop: 12/20/24 08:59 Last Admin: 11/22/24 07:54 Dose: 1,250 mg Lorazepam (Lorazepam 1 Mg Tab) 2 mg PO Q6H PRN PRN Reason: anxiety Stop: 12/20/24 13:59 Melatonin (Melatonin 3 Mg Tab) 3 mg PO HS PRN PRN Reason: sleep Stop: 12/20/24 00:33 Last Admin: 11/21/24 00:33 Dose: 3 mg Multivitamins (Multivitamin Tab) 1 tab PO QAM STEFAN Stop: 12/20/24 08:59 Last Admin: 11/22/24 08:12 Dose: 1 tab Olanzapine (Olanzapine 10 Mg Tab) 10 mg PO HS STEFAN Stop: 12/20/24 20:59 Last Admin: 11/21/24 20:39 Dose: 10 mg Olanzapine (Olanzapine 10 Mg/2.1 Ml Sdv) 2.5 mg IM Q6H PRN PRN Reason: Agitation Stop: 12/20/24 00:33 Olanzapine (Olanzapine 5 Mg Tablet) 5 mg PO QAM [facility] Stop: 12/21/24 08:59 Last Admin: 11/22/24 08:13 Dose: 5 mg Polyethylene Glycol (Polyethylene (Miralax) 17 Gm Pack) 17 gm PO DAILY PRN PRN Reason: Constipation Stop: 12/20/24 00:33 Thiamine HCl (Thiamine Hcl 100 Mg Tab) 100 mg PO QAM STEFAN Stop: 12/20/24 08:59 Last Admin: 11/22/24 07:55 Dose: 100 mg Trimethoprim/Sulfamethoxazole (Sulfamethoxazole/Trimethoprim Ds 800/160mg Tab) 1 tab PO Q12 STEFAN Stop: 12/18/24 20:59 Last Admin: 11/20/24 20:18 Dose: 1 tab
--- NOTE | 2024-11-23 13:00 | Psychiatric Progress Note ---
Date of Service November 23, 2024 Impression / Recommendations Impression 64 y/o M h/o of paranoid schizophrenia, osteomyelitis recently discharged from the hospital presents with threatening behavior and non-adherence to oral antibiotics. He is now on a 302 commitment due to exacerbation of psychosis with inability to attend to his current medical conditions. From previous provider: Patient presents with decompensated schizophrenia with significant thought disorganization and recent threatening behavior. Appears to be a shift from his baseline. Possible mood component. Recent osteomyelitis treatment for self inflicted wound and non-adherent to oral antibiotics. CK slightly elevated and likely from psychomotor agitation. No safe or rational discharge plan endorsed. Considered an imminent risk of harm to himself and others in his current condition and will pursue 303 involuntary commitment. A: Ongoing psychosis with paranoia and delusions and ideas of reference. Concerns for recent dangerous behaviors including his description of reckless driving due to paranoia. His impulsivity seems to also impact his difficulty remaining consistent with required medical treatment for his osteomyelitis. Tolerating olanzapine, will attempt to get [facility] past psych records to consider option of transition to a CATHERINE given his history of non-adherence and reluctance to consider psychiatric treatment. 303 hearing scheduled for tomorrow. The patient remains hospitalized on a completed 302 involuntary commitment, with 303 commitment hearing scheduled for 11/24/2024. This patient must remain on safety precautions with a 1-on-1 and is unable to leave the hospital AMA. Overall, I spent a total of 60 minutes with this case including review of chart records, review of labwork, direct evaluation of the patient at bedside, co unseling the patient, discussion of the patient with the hospitalist provider, discussion with the psychiatric liason during clinical rounds and documentation in the electronic health record. (1) Paranoid schizophrenia: (2) Threatening behavior: (3) Osteomyelitis of finger of right hand: Plan 11/23/2024: -Olanzapine dosing schedule wasn't changed but he seems to be tolerating this for now so would continue olanzapine 5mg daily and 10mg HS -Consider option for CATHERINE antipsychotic after review of previous [facility] records -303 hearing tomorrow 11/22/2024: -Continue 1-on-1, he cannot leave AMA due to 302 commitment -Olanzapine 2.5mg qAM and 15mg HS -For behavioral emergency: haldol and ativan po or IM per previous recommendation -Psychiatric bed search once medically stable 11/21/2024: -Continue 1-on-1, he cannot leave AMA due to 302 commitment -Olanzapine 2.5mg qAM and 15mg HS -For behavioral emergency: haldol and ativan po or IM per previous recommendation -Psychiatric bed search once medically stable 11/20/24: Olanzapine 5mg QAM, 10mg HS Haldol 5mg Q6H PRN for agitation Lorazepam 2mg Q6H PRN for anxiety 303 involuntary commitment filed Plan for inpatient psychiatry treatment once medically cleared Interval History Identifying Information Adriel Orta is a 64 y/o M h/o of paranoid schizophrenia, osteomyelitis recently discharged from the hospital presents with threatening behavior and non-adherence to oral antibiotics. Psychiatry consulted for evaluation. Chief Complaint "But me had help from 80s music, the radio and bright light, you know who that is". Subjective Subjective Patient was seen & assessed and interval progress reviewed. No behavioral events. Today reports his mood is good and is enjoying watching a movie on TV. Reviewed 303 commitment hearing tomorrow, he remains focused on discharging soon. Reviewed psychiatric history and he saw a provider at [facility] in the past (he estimates from about [id number]). He stopped when COVID happened and all appointments became virtual. States he was seen for "the same reason" of seeing " angels". Then he goes on to describe his paranoia that police or a larger entity is out to get him for his previous "illegal gambling". Describes that just prior to admission he was being tracked all over while driving and that police puposefully used 18 swenson trucks to find his location and "faked construction work" to catch him. He also believed they had tapped his phone, computer hard drive, TV and door aguirre. He describes paying someone to pour gasoline on his computer hard drive and then run it over with a truck and that he cut the wires on his TV and disassembled his door aguirre. Notes that he "found evidence in the doorbell". He also describes ideas of reference via the radio and that certain songs tell him "what to do to get home safe" and colors on the dashboard indicate what the speed limit is noting that police try to catch him speeding by switching the speed limit suddenly. He also describes driving at high speeds recently to avoid the police apprehending him. He can speak to the medical team's interventions "making me feel better" but doesn't want to stay in the hospital long. Thinks he may try to move to another state but later states he may remain locally and start a new job here. Gives permission to get [facility] records, speak to his sister and asks that psych liason reach out to his neighbors as he feels they can verify that he's being targeted by police. Tells us that his mother "probably thinks I'm a looney tune". Physical Exam Psychiatric Orientation: alert and oriented x 3 Apperance: appropriately dressed Eye Contact: good eye contact Motor Behavior: no abnormal motor movements Speech: normal rate/rhythm/volume of speech Affect: + labile affect Mood: + irritable mood Thought Process: + tangential thought process Thought Content: + paranoid, + delusions and + ideas of reference Suicidal Thoughts: denies suicidal thoughts Homicidal Thoughts: denies homicidal thoughts Hallucinations: + auditory hallucinations and + visual hallucinations Cognition: recent memory grossly intact, remote memory grossly intact, attention grossly intact and language grossly intact Estimated Intelligence: + below average estimated intelligence Insight: + limited insight Judgment: + limited judgement Vital Signs (Past 24 Hours) Last Vital Signs Temp 36.7 C 11/23/24 07:00 Pulse 74 11/23/24 07:00 Resp 20 11/23/24 07:00 BP 120/73 11/23/24 07:00 Pulse Ox 87 L 11/23/24 07:00 O2 Del Method Room Air 11/23/24 08:30 Results & Data ([facility]) Current Inpatient Medications Current Inpatient Medications: Current Inpatient Medications Acetaminophen (Acetaminophen 325 Mg Tab) 650 mg PO Q4H PRN PRN Reason: pain/fever Stop: 12/20/24 00:33 Last Admin: 11/20/24 23:35 Dose: 650 mg Doxycycline Hyclate (Doxycycline Hyclate 100 Mg Cap) 100 mg PO BID [facility] Stop: 01/02/25 12:44 Last Admin: 11/22/24 08:13 Dose: 100 mg Enoxaparin Sodium (Enoxaparin Inj 40 Mg/0.4 Ml Syr) 40 mg SQ Q24H [facility] Stop: 12/20/24 07:59 Last Admin: 11/23/24 08:42 Dose: 40 mg Folic Acid (Folic Acid 1 Mg Tab) 1 mg PO QAM [facility] Stop: 12/20/24 08:59 Last Admin: 11/23/24 08:42 Dose: 1 mg Haloperidol Lactate (Haloperidol Lactate 5 Mg/Ml 1 Ml Vial) 5 mg IM Q6H PRN PRN Reason: Agitation Stop: 12/20/24 13:46 Daptomycin 600 mg/ Syringe 12 mls @ 6 mls/min IV Q24H STEFAN; Protocol Stop: 01/03/25 09:59 Last Admin: 11/23/24 10:22 Dose: 6 mls/min Lactobacillus Acidophilus (Advanced Probiotic 625 Mg Capsule) 1,250 mg PO DAILY STEFAN Stop: 12/20/24 08:59 Last Admin: 11/23/24 08:41 Dose: 1,250 mg Lorazepam (Lorazepam 1 Mg Tab) 2 mg PO Q6H PRN PRN Reason: anxiety Stop: 12/20/24 13:59 Melatonin (Melatonin 3 Mg Tab) 3 mg PO HS PRN PRN Reason: sleep Stop: 12/20/24 00:33 Last Admin: 11/22/24 22:21 Dose: 3 mg Multivitamins (Multivitamin Tab) 1 tab PO QAM [facility] Stop: 12/20/24 08:59 Last Admin: 11/23/24 08:43 Dose: 1 tab Olanzapine (Olanzapine 10 Mg Tab) 10 mg PO HS STEFAN Stop: 12/20/24 20:59 Last Admin: 11/22/24 20:19 Dose: 10 mg Olanzapine (Olanzapine 10 Mg/2.1 Ml Sdv) 2.5 mg IM Q6H PRN PRN Reason: Agitation Stop: 12/20/24 00:33 Olanzapine (Olanzapine 5 Mg Tablet) 5 mg PO QAM [facility] Stop: 12/21/24 08:59 Last Admin: 11/23/24 08:43 Dose: 5 mg Polyethylene Glycol (Polyethylene (Miralax) 17 Gm Pack) 17 gm PO DAILY PRN PRN Reason: Constipation Stop: 12/20/24 00:33 Thiamine HCl (Thiamine Hcl 100 Mg Tab) 100 mg PO QAM [facility] Stop: 12/20/24 08:59 Last Admin: 11/23/24 08:42 Dose: 100 mg Trimethoprim/Sulfamethoxazole (Sulfamethoxazole/Trimethoprim Ds 800/160mg Tab) 1 tab PO Q12 STEFAN Stop: 12/18/24 20:59 Last Admin: 11/20/24 20:18 Dose: 1 tab
--- NOTE | 2024-11-23 14:21 | Hospitalist Progress Note ---
Date of Service November 23, 2024 Assessment & Plan (1) Paranoid schizophrenia: Plan: 64-year-old male with past medical history significant for diagnosis of paranoid schizophrenia, noncompliant with home medication, MDD, hyperlipidemia,on IV daptomycin for right index finger osteomyelitis comes because of psychosis. Patient was in the hospital in last week of October and was status post right index finger incision and drainage on 11/02/24. Cultures were growing MRSA. He developed micropapular skin lesions for IV vancomycin and it was discontinued and was discharged on IV daptomycin per ID recommendations for 6 weeks last dose to be on December 10, 2024. He was again admitted on November 15, 2024 for abnormal behavior and not taking his home medications. Evaluated by psychiatry. His Zyprexa was increased to 10 mg p.o. nightly. Patient was discharged on 11/16/2024. On the day of the admission, his neighbor thought he was not acting right and more paranoid. EMS was called. Paranoid schizophrenia Psychosis Not taking his medications at home One-on-one patient psychiatry evaluated the patient; recommended Zyprexa 5 mg at a.m., Zyprexa 10 mg at bedtime, Haldol 5 mg for agitation and Ativan for anxiety. Patient remains hospitalized on a completed 302 involuntary commitment with 303 commitment filed on 11/24. Right index finger osteomyelitis Patient had undergone I&D of the abscess in October; culture were positive for MRSA. He was supposed to be on IV daptomycin until December 10, 2024. However, patient has been noncompliant due to mental health issue. MRI of the hand shows finding consistent with osteomyelitis; though it was a limited exam with only 1 sequence obtained. Discussion was done with Dr. Arellano reviewed from infectious disease; given that patient has noncompliance with IV therapy, normal CRP and ESR; he recommended switching over to Bactrim until December 16, 2024( one more week than anticipated end date of December 10, 2024). After receiving Bactrim, patient developed drug rash. Discussed with Dr. Bryant/Dr. Arellano from infectious disease on 11/21; given patient is not able to be compliant with IV infusion,has a allergic reaction to Bactrim with rash. Rec ommend doxycycline 100 mg twice daily CK repeated on 11/22; is within normal limits. Restarted on daptomycin with plans to switch over to doxycycline at the time of the discharge. End date of doxycycline to be December 16, 2024 History of Alcohol use disorder Currently denies drinking alcohol Will monitor for withdrawal symptoms DVT prophylaxis Lovenox Disposition Medical floor Full code. Admission and Anticipated Discharge Date Admission Date: November 19, 2024 Subjective Patient seen and examined at bedside. Comfortable; not in distress. Denies fever, chills, chest pain, shortness of breath, abdominal pain or urinary symptoms. No significant overnight events Review of Systems Review of Systems: All systems reviewed & are unremarkable except as noted in Subjective Physical Exam Physical Exam: General- Not in distress Head- atraumatic Lungs- clear to auscultation no wheezing or crackles Heart- regular rhythm; no murmur, no gallop. Abdomen- normal bowel sounds, soft, mild diffuse discomfort , no distension. Extremities- no pretibial edema, no erythema seen. Right second finger with healed wound; slight erythema surrounding the finger. No warmth, increased tenderness. Neuro- alert, and wake ; no facial palsy; no dysarthria. Results & Data Results & Data Vital Signs (Past 12 Hours) Vital Signs Temp Pulse Resp BP Pulse Ox O2 Del Method 11/23/24 08:30 Room Air 11/23/24 07:00 36.7 C 74 20 120/73 87 L Room Air
[2024-11-24 09:41] VITALS: BP 125/77; PULSE 98; RESP 14; TEMP 98.2; O2SAT 98
--- NOTE | 2024-11-24 10:18 | Psychiatric Progress Note ---
Date of Service November 24, 2024 Impression / Recommendations Impression 64 y/o M h/o of paranoid schizophrenia, osteomyelitis recently discharged from the hospital presents with threatening behavior and non-adherence to oral antibiotics. He is now on a 302 commitment due to exacerbation of psychosis with inability to attend to his current medical conditions. From previous provider: Patient presents with decompensated schizophrenia with significant thought disorganization and recent threatening behavior. Appears to be a shift from his baseline. Possible mood component. Recent osteomyelitis treatment for self inflicted wound and non-adherent to oral antibiotics. CK slightly elevated and likely from psychomotor agitation. No safe or rational discharge plan endorsed. Considered an imminent risk of harm to himself and others in his current condition and will pursue 303 involuntary commitment. A: Ongoing psychosis with paranoia and delusions. Elevated mood today. Ongoing tangential thought process. Reviewed [facility] records consistent with schiz ophrenia and past depression. He was stable for a long time on risperidone (3mg HS for awhile and then down to 2mg HS). He'd like to start risperidone. 303 commitment granted. The patient remains hospitalized on a completed 303 involuntary commitment. This patient must remain on safety precautions with a 1-on-1 and is unable to leave the hospital AMA. Overall, I spent a total of 60 minutes with this case including review of chart records, review of labwork, direct evaluation of the patient at bedside, counseling the patient, discussion of the patient with the hospitalist provider, discussion with the psychiatric liason during clinical rounds and documentation in the electronic health record and participation in 303 commitment hearing. (1) Paranoid schizophrenia: (2) Threatening behavior: (3) Osteomyelitis of finger of right hand: Plan 11/24/2024: -Now medically stable, plan for inpatient psychiatry admission pending negative COVID test -Stop olanzapine -Start risperidone 1mg BID -On a 303 commitment, requires 1-on-1 and cannot leave AMA -Finger must be covered for inpatient psych unit due to contact precautions 11/23/2024: -Olanzapine dosing schedule wasn't changed but he seems to be tolerating this for now so would continue olanzapine 5mg daily and 10mg HS -Consider option for CATHERINE antipsychotic after review of previous [facility] records -303 hearing tomorrow 11/22/2024: -Continue 1-on-1, he cannot leave AMA due to 302 commitment -Olanzapine 2.5mg qAM and 15mg HS -For behavioral emergency: haldol and ativan po or IM per previous recommendation -Psychiatric bed search once medically stable 11/21/2024: -Continue 1-on-1, he cannot leave AMA due to 302 commitment -Olanzapine 2.5mg qAM and 15mg HS -For behavioral emergency: haldol and ativan po or IM per previous recommendation -Psychiatric bed search once medically stable 11/20/24: Olanzapine 5mg QAM, 10mg HS Haldol 5mg Q6H PRN for agitation Lorazepam 2mg Q6H PRN for anxiety 303 involuntary commitment filed Plan for inpatient psychiatry treatment once medically cleared Interval History Identifying Information Adriel Orta is a 64 y/o M h/o of paranoid schizophrenia, osteomyelitis recently discharged from the hospital presents with threatening behavior and non-adherence to oral antibiotics. Psychiatry consulted for evaluation. Chief Complaint "Sarai ca is broken". Subjective Subjective Patient was seen & assessed and interval progress reviewed. Adriel participated in the 303 hearing. Reported he was in support of the commitment. Tells me 'I think it went great". Reviewed option to trial risperidone given review of [facility] records and then option for CATHERINE, he wants to switch to risperidone and likes the idea of an CATHERINE. Very upbeat mood. Physical Exam Vital Signs (Past 24 Hours) Last Vital Signs Temp 36.8 C 11/24/24 07:00 Pulse 98 H 11/24/24 07:00 Resp 14 11/24/24 07:00 BP 125/77 11/24/24 07:00 Pulse Ox 98 11/24/24 07:00 O2 Del Method Room Air 11/24/24 09:49 Results & Data ([facility]) Current Inpatient Medications Current Inpatient Medications: Current Inpatient Medications Acetaminophen (Acetaminophen 325 Mg Tab) 650 mg PO Q4H PRN PRN Reason: pain/fever Stop: 12/20/24 00:33 Last Admin: 11/20/24 23:35 Dose: 650 mg Doxycycline Hyclate (Doxycycline Hyclate 100 Mg Cap) 100 mg PO BID STEFAN Stop: 01/02/25 12:44 Last Admin: 11/22/24 08:13 Dose: 100 mg Enoxaparin Sodium (Enoxaparin Inj 40 Mg/0.4 Ml Syr) 40 mg SQ Q24H STEFAN Stop: 12/20/24 07:59 Last Admin: 11/24/24 07:46 Dose: 40 mg Folic Acid (Folic Acid 1 Mg Tab) 1 mg PO QAM STEFAN Stop: 12/20/24 08:59 Last Admin: 11/24/24 07:45 Dose: 1 mg Haloperidol Lactate (Haloperidol Lactate 5 Mg/Ml 1 Ml Vial) 5 mg IM Q6H PRN PRN Reason: Agitation Stop: 12/20/24 13:46 Daptomycin 600 mg/ Syringe 12 mls @ 6 mls/min IV Q24H STEFAN; Protocol Stop: 01/03/25 09:59 Last Admin: 11/24/24 09:36 Dose: 6 mls/min Lactobacillus Acidophilus (Advanced Probiotic 625 Mg Capsule) 1,250 mg PO DAILY STEFAN Stop: 12/20/24 08:59 Last Admin: 11/24/24 07:45 Dose: 1,250 mg Lorazepam (Lorazepam 1 Mg Tab) 2 mg PO Q6H PRN PRN Reason: anxiety Stop: 12/20/24 13:59 Melatonin (Melatonin 3 Mg Tab) 3 mg PO HS PRN PRN Reason: sleep Stop: 12/20/24 00:33 Last Admin: 11/23/24 21:51 Dose: 3 mg Multivitamins (Multivitamin Tab) 1 tab PO QAM [facility] Stop: 12/20/24 08:59 Last Admin: 11/24/24 07:45 Dose: 1 tab Olanzapine (Olanzapine 10 Mg Tab) 10 mg PO HS STEFAN Stop: 12/20/24 20:59 Last Admin: 11/23/24 21:51 Dose: 10 mg Olanzapine (Olanzapine 10 Mg/2.1 Ml Sdv) 2.5 mg IM Q6H PRN PRN Reason: Agitation Stop: 12/20/24 00:33 Olanzapine (Olanzapine 5 Mg Tablet) 5 mg PO QAM STEFAN Stop: 12/21/24 08:59 Last Admin: 11/24/24 07:46 Dose: 5 mg Polyethylene Glycol (Polyethylene (Miralax) 17 Gm Pack) 17 gm PO DAILY PRN PRN Reason: Constipation Stop: 12/20/24 00:33 Thiamine HCl (Thiamine Hcl 100 Mg Tab) 100 mg PO QAM STEFAN Stop: 12/20/24 08:59 Last Admin: 11/24/24 07:45 Dose: 100 mg Trimethoprim/Sulfamethoxazole (Sulfamethoxazole/Trimethoprim Ds 800/160mg Tab) 1 tab PO Q12 STEFAN Stop: 12/18/24 20:59 Last Admin: 11/20/24 20:18 Dose: 1 tab
--- NOTE | 2024-11-24 15:24 | Hospitalist Progress Note ---
Date of Service November 24, 2024 Assessment & Plan (1) Paranoid schizophrenia: Plan: 64-year-old male with past medical history significant for diagnosis of paranoid schizophrenia, noncompliant with home medication, MDD, hyperlipidemia,on IV daptomycin for right index finger osteomyelitis comes because of psychosis. Patient was in the hospital in last week of October and was status post right index finger incision and drainage on 11/02/24. Cultures were growing MRSA. He developed micropapular skin lesions for IV vancomycin and it was discontinued and was discharged on IV daptomycin per ID recommendations for 6 weeks last dose to be on December 10, 2024. He was again admitted on November 15, 2024 for abnormal behavior and not taking his home medications. Evaluated by psychiatry. His Zyprexa was increased to 10 mg p.o. nightly. Patient was discharged on 11/16/2024. On the day of the admission, his neighbor thought he was not acting right and more paranoid. EMS was called. Paranoid schizophrenia Psychosis Not taking his medications at home Continue one-to-one monitoring Patient was initially given Zyprexa which has been changed to risperidone as per recommendation by psychiatry Patient underwent 303 commitment hearing today. Patient cannot go AMA Right index finger osteomyelitis Patient had undergone I&D of the abscess in October; culture were positive for MRSA. He was supposed to be on IV daptomycin until December 10, 2024. However, patient has been noncompliant due to mental health issue. MRI of the hand shows finding consistent with osteomyelitis; though it was a limited exam with only 1 sequence obtained. Discussion was done with Dr. Arellano reviewed from infectious disease; given that patient has noncompliance with IV therapy, normal CRP and ESR; he recommended switching over to Bactrim until December 16, 2024( one more week than anticipated end date of December 10, 2024). After receiving Bactrim, patient developed drug rash. Discussed with Dr. Bryant/Dr. Arellano from infectious disease on 11/21; given patient is not able to be compliant with IV infusion,has a allergic reaction to Bactrim with rash. Recommend doxycycline 100 mg twice daily CK repeated on 11/22; is within normal limits. Restarted on daptomycin with plans to switch over to doxycycline at the time of the discharge. End date of doxycycline to be December 16, 2024 Patient is medically stable for transfer to for inpatient psychiatry. History of Alcohol use disorder Currently denies drinking alcohol no sign and symptoms of withdrawal during the hospitalization. This time spent evaluating patient, direct bedside care, chart review, placing orders, interpretation of diagnostic studies, discussion with consultants, patient, and family members, as well as other required patient management activities is 50 minutes Please note the above document was generated using voice recognition software. It may contain grammatical, syntax or spelling errors. Any formal questions or concerns about the content, text or information contained within the body of this dictation should be directly addressed to the provider for clarification Admission and Anticipated Discharge Date Admission Date: November 19, 2024 Subjective Patient seen and examined at bedside. He is comfortable; not in distress. Reports that the pain in his finger has improved compared to previous days No significant events overnight Review of Systems Review of Systems: All systems reviewed & are unremarkable except as noted in Subjective Physical Exam Physical Exam: General- Not in distress Head- atraumatic Lungs- clear to auscultation no wheezing or crackles Heart- regular rhythm; no murmur, no gallop. Abdomen- normal bowel sounds, soft, mild diffuse discomfort , no distension. Extremities- no pretibial edema, no erythema seen. Right second finger with healed wound; slight erythema surrounding the finger. No warmth, increased tenderness. Neuro- alert, and wake ; no facial palsy; no dysarthria. Results & Data Results & Data Vital Signs (Past 12 Hours) Vital Signs Temp Pulse Resp BP Pulse Ox O2 Del Method 11/24/24 09:49 Room Air 11/24/24 07:00 36.8 C 98 H 14 125/77 98 Room Air
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
== END 2024-11-24 18:27 | DRG 885 ==
LOC: ED 20:16 → EDINP 23:29 → 3W 11-20 15:55

== ENCOUNTER 2024-11-24 18:05 | Inpatient (IN) ==
[2024-11-24] MEDS ORDERED: ALUMINUM/MAGNESIUM SUSP 30 ML UDC PO PRN (18:51)
[2024-11-24] MEDS ORDERED: SODIUM CHLORIDE 0.65% NA SOLN 45 ML (OCEAN) PRN (18:51)
[2024-11-24] MEDS ORDERED: ACETAMINOPHEN 325 MG TAB PO PRN (18:51)
[2024-11-24] MEDS ORDERED: BISMUTH SUBSALICYLATE 262 MG CHEW PO PRN (18:51)
[2024-11-24] MEDS ORDERED: MAGNESIUM HYDROXIDE SUSP 30 ML UDC PO PRN (18:51)
[2024-11-24] MEDS: LORazepam 1 MG TAB PO STA (19:01)
[2024-11-24] MEDS: DOXYCYCLINE HYCLATE 100 MG CAP PO SCH (21:08)
--- NOTE | 2024-11-25 08:38 | History & Physical ---
Date of Service November 25, 2024 Impression / Recommendations Impression ADRIEL AVILA is a 64-year-old man who currently lives in [place] with his mother, has a history of intellectual disability, schizophrenia, depression and osteomyelitis, and was admitted on 11/24/24 18:29 on a 303 involuntary commitment for psychosis with disorganization leading to inability to meet his medical needs and personal safety. Diagnostically consistent with unspecified psychosis with differential including schizophrenia versus schizoaffective disorder current episode of adonis versus bipolar affective disorder current episode of adonis with psychosis. Adriel was diagnosed with schizophrenia in 2009 when he experienced significant psychosis following the acute stress of his father's and then took risperidone until about 2017. He was then off of all medications for ~8 years with fairly stable psychiatric symptoms however decompensated in the last few months with multiple hospitalizations for new osteomyelitis due to an impulsive and intentional finger burn injury, job losses and delusions and flight of ideas with mood lability. Such a history, with apparent few symptoms of psychosis without medications for multiple years, suggests possibility of bipolar affective disord er rather than schizoaffective disorder type presentation. Outside records from his previous outpatient psychiatrist in 2017 are notable for prominent depression at times which would also fit with possible BPAD diagnosis. Discussed medication treatment options in detail. Discussed risks, benefits and alternatives. Patient would like to start and consented to Depakote for mood stabilization and risperidone for psychosis. Reviewed side effects including but not limited to: liver injury, weight gain, confusion with Depakote and CBC, LFTs reviewed and stable to initiate treatment; and movement (TD, NMS), cardiac (QTc prolongation), and metabolic (stroke, insulin resistance) and necessity for fasting lipid and glucose labwork and AIMS done with score of 0 for use of risperidone. MNPR-disinhibited, poor boundaries, psychosis Overall I spent a total of 75 minutes for this admission including review of chart records, review of labwork, direct evaluation of the patient, counseling the patient, ordering medication, risk assessment, discussion with the psychiatric liason RN and documentation in the electronic health record. (1) Unspecified psychosis not due to a substance or known physiological condition: (2) Adonis: (3) Paranoid schizophrenia: (4) Insomnia: (5) Infected blister of right index finger: Plan 11/25/2024: The patient was admitted to the [facility] ([facility] mental health unit) on q15 min checks (behavioral with suicide precautions) for safety. The patient will participate in group, recreational, and milieu therapies and will be offered additional individual and family sessions as clinically appropriate. -Start Depakote ER 500mg liquid HS -Continue risperidone 1mg ODT BID -Chewable multivitamin -Doxycycline 100mg BID through 12/16/2024 -Imodium prn for diarrhea Inventory Assets Strengths: supportive relationships, more willing for treatment Needs: safety and stabilization, medication adjustment, additional coping skills, increased outpatient services Suicide Risk Level Suicide Risk Level: Moderate (q15 min suicide checks) (denies SI but with mood lability and adonis/psychosis but feels safe in the hospital and feels able to ask for support) Risk Factors Assessment Male: Yes : Yes Do You Have Access To A Gun?: No Health Problems: Yes Mental Health Diagnoses: Yes Substance Use Disorders: No Previous Attempt: Yes Family History of Suicide: No Previous Psychiatric Hospitalization: Yes Hopelessness: No Protective Factors Assessment Scientology Beliefs: Yes Stable Relationships: Yes Supportive Family: Yes Psychiatric History Identifying Data ADRIEL AVILA is a 64-year-old man who currently lives in [place] with his mother, has a history of intellectual disability, schizophrenia, depression and osteomyelitis, and was admitted on 11/24/24 18:29 on a 303 involuntary commitment for psychosis with disorganization leading to inability to meet his medical needs and personal safety. Chief Complaint "Guthrie is working with the police, you now how the [place] song goes". History of Present Illness Adriel presents for psychiatric admission for threatening statements to EMS prior to medical admission for osteomyelitis due to outpatient medication non-adherence and with current symptoms of adonis and psychosis. Prior to being admitted medically he reportedly made threats to shoot EMS personnel and blow up the hospital although he denies making these statements and denies that he would ever try to harm anyone. Today states he has been experiencing loose stools which we discussed could be due to the transition to oral antibiotic for his osteomyelitis. He reports this is not normal for him and that it "came on quickly" resulting and bowel incontinence overnight. He mentions difficulty making it to the bathroom in time stating "I felt it coming but I could not get there in time". His mental status appears significantly altered with signs of euphoric adonis. He engages in tangential speech discussing topics such as football, DVDs and television shows without clear relevance. He goes on to start talking about Elma Hardy and [place] songs and somehow relating this with local police in a manner that is difficult to logically follow. He likes so far the switch to risperidone and is agreeable to starting Depakote. He states "me sleep excellent here" even though he was reported as sleeping only about 4-1/2 hours last night. He remains interested in the possibility for eventually transitioning to a long-acting injectable form of risperidone. Described his mood as 10/10, "like superman". He denies any other medication side effects or issues. Collateral from his sister per SW discussion notable for approximately two months of increasing delusions, mood lability with marked irritability and jumping between topics when talking. Additional information per my consult note on 11/23/2024: "Patient was seen & assessed and interval progress reviewed. No behavioral events. Today reports his mood is good and is enjoying watching a movie on TV. Reviewed 303 commitment hearing tomorrow, he remains focused on discharging soon. Reviewed psychiatric history and he saw a provider at [facility] in the past (he estimates from about [id number]). He stopped when COVID happened and all appointments became virtual. States he was seen for "the same reason" of seeing " angels". Then he goes on to describe his paranoia that police or a larger entity is out to get him for his previous "illegal gambling". Describes that just prior to admission he was being tracked all over while driving and that police [place] clive used 18 swenson trucks to find his location and "faked construction work" to catch him. He also believed they had tapped his phone, computer hard drive, TV and door aguirre. He describes paying someone to pour gasoline on his computer hard drive and then run it over with a truck and that he cut the wires on his TV and disassembled his door aguirre. Notes that he "found evidence in the doorbell". He also describes ideas of reference via the radio and that certain songs tell him "what to do to get home safe" and colors on the dashboard indicate what the speed limit is noting that police try to catch him speeding by switching the speed limit suddenly. He also describes driving at high speeds recently to avoid the police apprehending him. He can speak to the medical team's interventions "making me feel better" but doesn't want to stay in the hospital long. Thinks he may try to move to another state but later states he may remain locally and start a new job here. Gives permission to get [facility] records, speak to his sister and asks that psych liason reach out to his neighbors as he feels they can verify that he's being targeted by police. Tells us that his mother "probably thinks I'm a looney tune". " Past Psychiatric History Current Psychiatric Diagnosis: Schizophrenia Outpatient Services: none Previous Psych Admissions: [facility] Jan 2010 and September 2010 Do You Have Access To A Gun?: No History of Previous Suicide Attempt: Yes Describe Attempts in the Past: via starvation in 2010 Past Medication Trials: risperidone (1mg AM and 3mg HS at the highest, tapered to 2mg HS at the lowest) cogentin Klonopin Celexa trazodone Allergies Allergy/AdvReac Type Severity Reaction Status Date / Time vancomycin Allergy Redness of Verified 11/15/24 08:31 Skin sulfamethoxazole AdvReac Mild Rash Verified 11/21/24 12:38 [From Bactrim] trimethoprim [From Bactrim] AdvReac Mild Rash Verified 11/21/24 12:38 Home Medications Medication Instructions Recorded Confirmed Type L.acidop,casei,lactis,rham-B.lact,alpa 1 cap PO DAILY #30 caps 11/05/24 11/19/24 Rx 625 mg (10 billion cell) capsule (Advanced Probiotic) folic acid 1 mg tablet 1 mg PO QAM #30 tabs 11/05/24 11/19/24 Rx melatonin 3 mg tablet 3 mg PO HS PRN sleep #30 tabs 11/05/24 11/19/24 Rx multivitamin with folic acid 400 1 tab PO QAM #30 tabs 11/05/24 11/19/24 Rx mcg tablet (Daily-Jose (with folic acid)) thiamine HCl (vitamin B1) 100 mg 100 mg PO QAM #30 tabs 11/05/24 11/19/24 Rx tablet doxycycline hyclate 100 mg capsule 100 mg PO BID 28 days #56 caps 11/24/24 Rx risperidone 1 mg tablet 1 mg PO BID #60 tabs 11/24/24 Rx Family History Family History of: Doesn't Know Family Mental Health History Comment: Patient unable to recall Alcohol History Hx of Alcohol Use Over the Past 12 Months: No (Unable to thoroughly assess, but patient denies.) AUDIT Total Score: 0 Smoking Use Have You Smoked or Used Tobacco Products in the Last 30 Days: No Smoking Status: Never smoker Substance History Hx of Prescription Med Misuse Over the Past 12 Months: No Hx of Over the Counter Med Misuse Over the Past 12 Months: No (Unable to thoroughly assess, but patient denies.) Hx of Inhalent Misuse Over the Past 12 Months: No Hx of Organic Substance Use Over the Past 12 Months: No (Unable to thoroughly assess, but patient denies.) Hx of Illegal Substances/Street Drug Use Over Past 12 Months: No (Unable to thoroughly assess, but patient denies.) Problems as a Result of Past Substance Use: None Identified Problems as a Result of Past Substance Use Comments: Unable to assess due to pt's mental state. They deny substance use. Personal History Highest Grade Completed: High School Graduate (in special education for K-12) Employment Status: Unemployed Marital Status: Single Number Of Children: n/a Beliefs That Will Affect Care: None Current Legal Problems: No Hx Legal Problems: No Hx Traumatic Life Events: No Patient History Medical History MDD (major depressive disorder) HLD (hyperlipidemia) Schizophrenia Social History Smoking Status: Never smoker Second Hand Exposure: Yes; Do You Dip or Chew Tobacco: No; Hx Alcohol Use: Yes Alcohol type: other Hx Substance Use: No Preferred Language: Pakistani Communication Ability: Effective Communication Ability Comment: limited Farm Management Teacher Required: No Beliefs That Will Affect Care: None Current Living Situation: Other Current Living Situation Comment: w/ friends Feels Safe at Home: No Is there a partner from a previous relationship who is making you feel unsafe now?: No Gender Identity: Male Assistive Devices: Glasses Assistive Devices Comment: Uses reading glasses Review of Systems Review of Systems: All systems reviewed & are unremarkable except as noted in HPI & below Physical Exam Psychiatric: Orientation: alert and oriented x 3 Apperance: appropriately dressed and + disheveled Eye Contact: good eye contact (intense) Motor Behavior: no abnormal motor movements Speech: + loud speech; + abnormal rate/rhythm/volume of speech (rapid) Affect: + labile affect and + elated affect Mood: no depressed mood and no anxious mood Thought Process: + tangential thought process, + flight of ideas and + looseness of associations Thought Content: + paranoid, + delusions and + ideas of reference Suicidal Thoughts: denies suicidal thoughts, denies suicidal plan and denies suicidal intent Homicidal Thoughts: denies homicidal thoughts Hallucinations: + auditory hallucinations and + visual hallucinations Cognition: recent memory grossly intact, remote memory grossly intact, attention grossly intact and language grossly intact Estimated Intelligence: + below average estimated intelligence Insight: + limited insight Judgment: + limited judgement Vital Signs (Past 24 Hours): Last Vital Signs Temp 37.0 C 11/25/24 06:00 Pulse 76 11/24/24 18:55 Resp 16 11/25/24 06:00 BP 125/79 11/25/24 06:00 Pulse Ox 97 11/25/24 06:00 O2 Del Method Room Air 11/25/24 06:00 Exam Statement: A physical exam was performed on the medical floor by Dr. Elias for the purposes of medical clearance. I accept that physical as correct and adequate for the purposes of the inpatient physical exam. Results & Data ([facility]) Current Inpatient Medications Current Inpatient Medications: Current Inpatient Medications Acetaminophen (Acetaminophen 325 Mg Tab) 650 mg PO Q4H PRN PRN Reason: Headache or Minor Fever Stop: 12/24/24 18:50 Al Hydrox/Mg Hydrox/Simethicone (Aluminum/Magnesium Susp 30 Ml Udc) 30 ml PO Q4H PRN PRN Reason: GI Upset Stop: 12/24/24 18:50 Bismuth Subsalicylate (Bismuth Subsalicylate 262 Mg Chew) 2 tab PO Q30M PRN PRN Reason: Loose Stool/Diarrhea Stop: 12/24/24 18:50 Doxycycline Hyclate (Doxycycline Hyclate 100 Mg Cap) 100 mg PO BID STEFAN Stop: 12/16/24 21:14 Last Admin: 11/25/24 08:35 Dose: 100 mg Hydroxyzine HCl (Hydroxyzine Hcl 25 Mg Tab) 50 mg PO HSZ PRN PRN Reason: Insomnia Stop: 12/24/24 18:50 Hydroxyzine HCl (Hydroxyzine Hcl 25 Mg Tab) 25 mg PO Q4H PRN PRN Reason: Anxiety Stop: 12/24/24 18:50 Lorazepam (Lorazepam 1 Mg Tab) 1 mg PO TID PRN PRN Reason: Agitation Stop: 12/24/24 20:51 Magnesium Hydroxide (Magnesium Hydroxide Susp 30 Ml Udc) 30 ml PO DAILY PRN PRN Reason: Constipation Stop: 12/24/24 18:50 Olanzapine (Olanzapine 5 Mg Tablet) 5 mg PO BID PRN PRN Reason: psychosis Stop: 12/24/24 20:59 Risperidone (Risperidone 1 Mg Tablet) 1 mg PO BID STEFAN Stop: 12/24/24 20:59 Last Admin: 11/25/24 08:35 Dose: 1 mg Sodium Chloride (Sodium Chloride 0.65% Na Soln 45 Ml ([place])) 1 - 2 sprays NA PRN PRN PRN Reason: Nasal Dryness/Congestion Stop: 12/24/24 18:50
[2024-11-25] MEDS: FOLIC ACID 1 MG TAB PO SCH (10:49)
[2024-11-25] MEDS: ADVANCED PROBIOTIC 625 MG CAPSULE PO SCH (10:50)
[2024-11-25] MEDS: THIAMINE HCL 100 MG TAB PO SCH (10:50)
[2024-11-25] MEDS: MULTIVITAMIN TAB PO SCH (10:50)
[2024-11-25] MEDS: LOPERAMIDE HCL 2 MG CAP PO PRN (11:38)
[2024-11-25] MEDS ORDERED: Nursing to Pharmacy Communication SCH (19:30)
[2024-11-25] MEDS: VALPROIC ACID SOLN 250 MG/5 ML UDC PO SCH (21:30)
[2024-11-25] MEDS: risperiDONE ODT 0.5 MG SOLTAB PO SCH (21:30)
[2024-11-25] MEDS ORDERED: DIVALPROEX EXTENDED RELEASE 500 MG TAB PO SCH (22:00)
[2024-11-26 06:52] VITALS: O2SAT 99
[2024-11-26] MEDS: MULTIVITAMIN CHEWABLE TAB PO SCH (08:10)
[2024-11-26] MEDS: LACTOBACILLUS ACIDOPHILUS 1 GM PACK PO SCH (08:12)
--- NOTE | 2024-11-26 09:08 | Psychiatric Progress Note ---
Date of Service November 26, 2024 Impression / Recommendations Impression ADRIEL AVILA is a 64-year-old man who currently lives in [place] with his mother, has a history of intellectual disability, schizophrenia, depression and osteomyelitis, and was admitted on 11/24/24 18:29 on a 303 involuntary commitment for psychosis with disorganization leading to inability to meet his medical needs and personal safety. Diagnostically consistent with unspecified psychosis with differential including schizophrenia versus schizoaffective disorder current episode of adonis versus bipolar affective disorder current episode of adonis with psychosis. Adriel was diagnosed with schizophrenia in 2009 when he experienced significant psychosis following the acute stress of his father's and then took risperidone until about 2016. He was then off of all medications for ~8 years with fairly stable psychiatric symptoms however decompensated in the last few months with multiple hospitalizations for new osteomyelitis due to an impulsive and intentional finger burn injury, job losses and delusions and flight of ideas with mood lability. Such a history, with apparent few symptoms of psychosis without medications for multiple years, suggests possibility of bipolar affective disorder rather than schizoaffective disorder type presentation. Outside records from his previous outpatient psychiatrist in 2016 are notable for prominent depression at times which would also fit with possible BPAD diagnosis. A: Ongoing elevated mood with poor boundaries and poor sleep. Slept a little more last night with initiation of Depakote. Avoiding use of scheduled benzodiazepines for now given unclear history of alcohol use and potential for disinhibition with his intellectual disability but will consider if sleep issues persist. Will switch from liquid valproic acid to Depakote capsules as he doesn't like the taste of the liquid. Tolerating risperidone so far with some lessening of paranoia vocalized. MNPR-disinhibited, poor boundaries, psychosis Overall, I spent a total of 36 minutes on this case including meeting with the patient, reviewing the chart, nursing report, multidisciplinary team meeting, orders, and documentation. (1) Unspecified psychosis not due to a substance or known physiological condition: (2) Adonis: (3) Paranoid schizophrenia: (4) Insomnia: (5) Infected blister of right index finger: Plan 11/26/2024: -Switch to Depakote capsule 500mg HS from valproic acid 250mg BID liquid -d/c multivitamin 11/25/2024: The patient was admitted to the [facility] ([facility] health unit) on q15 min checks (behavioral with suicide precautions) for safety. The patient will participate in group, recreational, and milieu therapies and will be offered additional individual and family sessions as clinically appropriate. -Start Depakote ER 500mg liquid HS -Continue risperidone 1mg ODT BID -Chewable multivitamin -Doxycycline 100mg BID through 12/16/2024 -Imodium prn for diarrhea Inventory Assets Strengths: supportive relationships, more willing for treatment Needs: safety and stabilization, medication adjustment, additional coping skills, increased outpatient services Suicide Risk Level Suicide Risk Level: Moderate (q15 min suicide checks) (denies SI but with mood lability and adonis/psychosis but feels safe in the hospital and feels able to ask for support) Risk Factors Assessment Male: Yes : Yes Do You Have Access To A Gun?: No Health Problems: Yes Mental Health Diagnoses: Yes Substance Use Disorders: No Previous Attempt: Yes Family History of Suicide: No Previous Psychiatric Hospitalization: Yes Hopelessness: No Protective Factors Assessment Scientologist Beliefs: Yes Stable Relationships: Yes Supportive Family: Yes Interval History Identifying Information ADRIEL AVILA is a 64-year-old man who currently lives in [place] with his mother, has a history of intellectual disability, schizophrenia, depression and osteomyelitis, and was admitted on 11/24/24 18:29 on a 303 involuntary commitment for psychosis with disorganization leading to inability to meet his medical needs and personal safety. Chief Complaint "Me could have won at darts but me got cocky". Review of Systems Sleep Information Total Hours of Sleep: 6.5 Meal Information Percent Meal Consumed - Breakfast: 100 Percent Meal Consumed - Lunch: 100 Percent Meal Consumed - Dinner: 75 Subjective Subjective Patient was seen & assessed and interval progress reviewed with nursing and social work. Attending groups but intrusive and with poor boundaries but responds to redirection. Rated his mood as "10/10". Today reports feeling "good". Hopes he can discharge soon. Denies any side effects from medications except that the taste of the liquid depakote and the chewable multivitamin made him feel like he might vomit. Could not get fasting labs this AM because he drank juice early. Still discussing riding on [facility] at times. No further diarrhea. Physical Exam Psychiatric Orientation: alert and oriented x 3 Apperance: appropriately dressed and appropriately groomed Eye Contact: good eye contact Motor Behavior: no abnormal motor movements Speech: + loud speech and normal rate/rhythm/volume of speech Affect: + elated affect Mood: no depressed mood and no anxious mood Thought Process: + tangential thought process and + flight of ideas Thought Content: + paranoid, + delusions and + ideas of reference Suicidal Thoughts: denies suicidal thoughts, denies suicidal plan and denies suicidal intent Homicidal Thoughts: denies homicidal thoughts Hallucinations: + auditory hallucinations and + visual hallucinations Cognition: recent memory grossly intact, remote memory grossly intact, attention grossly intact and language grossly intact Estimated Intelligence: + below average estimated intelligence Insight: + limited insight Judgment: + limited judgement Vital Signs (Past 24 Hours) Last Vital Signs Temp 36.2 C L 11/26/24 06:00 Pulse 67 11/26/24 06:00 Resp 16 11/26/24 06:00 BP 125/77 11/26/24 06:00 Pulse Ox 99 11/26/24 06:00 O2 Del Method Room Air 11/26/24 06:00 Results & Data ([facility]) Current Inpatient Medications Current Inpatient Medications: Current Inpatient Medications Acetaminophen (Acetaminophen 325 Mg Tab) 650 mg PO Q4H PRN PRN Reason: Headache or Minor Fever Stop: 12/24/24 18:50 Al Hydrox/Mg Hydrox/Simethicone (Aluminum/Magnesium Susp 30 Ml Udc) 30 ml PO Q4H PRN PRN Reason: GI Upset Stop: 12/24/24 18:50 Bismuth Subsalicylate (Bismuth Subsalicylate 262 Mg Chew) 2 tab PO Q30M PRN PRN Reason: Loose Stool/Diarrhea Stop: 12/24/24 18:50 Doxycycline Hyclate (Doxycycline Hyclate 100 Mg Cap) 100 mg PO BID STEFAN Stop: 12/16/24 21:14 Last Admin: 11/26/24 08:10 Dose: 100 mg Hydroxyzine HCl (Hydroxyzine Hcl 25 Mg Tab) 50 mg PO HSZ PRN PRN Reason: Insomnia Stop: 12/24/24 18:50 Hydroxyzine HCl (Hydroxyzine Hcl 25 Mg Tab) 25 mg PO Q4H PRN PRN Reason: Anxiety Stop: 12/24/24 18:50 Lactobacillus Acidophilus (Lactobacillus Acidophilus 1 Gm Pack) 1 packet PO DAILY STEFAN Stop: 12/26/24 08:59 Last Admin: 11/26/24 08:12 Dose: 1 packet Loperamide HCl (Loperamide Hcl 2 Mg Cap) 2 mg PO QID PRN PRN Reason: diarrhea Stop: 12/25/24 11:21 Last Admin: 11/25/24 18:01 Dose: 2 mg Lorazepam (Lorazepam 1 Mg Tab) 1 mg PO TID PRN PRN Reason: Agitation Stop: 12/24/24 20:51 Magnesium Hydroxide (Magnesium Hydroxide Susp 30 Ml Udc) 30 ml PO DAILY PRN PRN Reason: Constipation Stop: 12/24/24 18:50 Multivitamins/Folic Acid/Vitamin C (Multivitamin Chewable Tab) 1 tab PO QAM STEFAN Stop: 12/26/24 08:59 Last Admin: 11/26/24 08:10 Dose: 1 tab Olanzapine (Olanzapine 5 Mg Tablet) 5 mg PO BID PRN PRN Reason: psychosis Stop: 12/24/24 20:59 Risperidone (Risperidone Odt 0.5 Mg Soltab) 1 mg PO BID STEFAN Stop: 12/25/24 20:59 Last Admin: 11/26/24 08:10 Dose: 1 mg Sodium Chloride (Sodium Chloride 0.65% Na Soln 45 Ml ([place])) 1 - 2 sprays NA PRN PRN PRN Reason: Nasal Dryness/Congestion Stop: 12/24/24 18:50 Valproic Acid (Valproic Acid Soln 250 Mg/5 Ml Udc) 250 mg PO BID@1000,2200 STEFAN Stop: 12/25/24 21:59 Last Admin: 11/25/24 21:30 Dose: 250 mg Mental Health & Subst Abuse Tx Therapist Name of Therapist: n/a [employer] Name of [employer]: n/a Post Discharge Appointments Primary Care Physician Name Of Family Doctor/PCP: Elizabeth Beckford DO Primary Care Date of Future Appointment with PCP: 11/30/24 Time of Appointment with PCP: [id number] Provider Appointment Comment: [address], [facility] [place] [id number]
[2024-11-26] MEDS: DIVALPROEX EXTENDED RELEASE 500 MG TAB PO SCH (20:54)
[2024-11-27 08:12] LABS: Cholesterol 123.0 mg/dl (0-200); HDL Cholesterol 31.0 mg/dl; Triglycerides 138.0 mg/dl (0-150)
[2024-11-27 08:46] LABS: Hemoglobin A1C 5.8 % (4.5-5.6)
--- NOTE | 2024-11-27 09:19 | Psychiatric Progress Note ---
Date of Service November 27, 2024 Impression / Recommendations Impression ADRIEL AVILA is a 64-year-old man who currently lives in [place] with his mother, has a history of intellectual disability, schizophrenia, depression and osteomyelitis, and was admitted on 11/24/24 18:29 on a 303 involuntary commitment for psychosis with disorganization leading to inability to meet his medical needs and personal safety. Diagnostically consistent with unspecified psychosis with differential including schizophrenia versus schizoaffective disorder current episode of adonis versus bipolar affective disorder current episode of adonis with psychosis. Adriel was diagnosed with schizophrenia in 2009 when he experienced significant psychosis following the acute stress of his father's and then took risperidone until about 2016. He was then off of all medications for ~8 years with fairly stable psychiatric symptoms however decompensated in the last few months with multiple hospitalizations for new osteomyelitis due to an impulsive and intentional finger burn injury, job losses and delusions and flight of ideas with mood lability. Such a history, with apparent few symptoms of psychosis without medications for multiple years, suggests possibility of bipolar affective disorder rather than schizoaffective disorder type presentation. Outside records from his previous outpatient psychiatrist in 2016 are notable for prominent depression at times which would also fit with possible BPAD diagnosis. A: Ongoing elevated mood with poor boundaries and poor sleep. He consents to starting Klonopin given ongoing poor sleep, reviewed risks including but not limited to: sedation, dizziness, increased risk for falls, misuse potential. He continues to like risperidone and seems less paranoid. He remains interested in CATHERINE option once dose is stabilized. MNPR-disinhibited, poor boundaries, psychosis Overall, I spent a total of 35 minutes on this case including meeting with the patient, reviewing the chart, nursing report, multidisciplinary team meeting, orders, and documentation. (1) Unspecified psychosis not due to a substance or known physiological condition: (2) Adonis: (3) Paranoid schizophrenia: (4) Insomnia: (5) Infected blister of right index finger: Plan 11/27/2024: -Start Klonopin 1mg HS -If he remains on risperidone 1mg BID consider transition to Uzedy 100mg Q60 days (this would give him 2 months of medication coverage and no need for oral overlap) 11/26/2024: -Switch to Depakote capsule 500mg HS from valproic acid 250mg BID liquid -d/c multivitamin 11/25/2024: The patient was admitted to the [facility] ([facility]) on q15 min checks (behavioral with suicide precautions) for safety. The patient will participate in group, recreational, and milieu therapies and will be offered additional individual and family sessions as clinically appropriate. -Start Depakote ER 500mg liquid HS -Continue risperidone 1mg ODT BID -Chewable multivitamin -Doxycycline 100mg BID through 12/16/2024 -Imodium prn for diarrhea Inventory Assets Strengths: supportive relationships, more willing for treatment Needs: safety and stabilization, medication adjustment, additional coping skills, increased outpatient services Suicide Risk Level Suicide Risk Level: Moderate (q15 min suicide checks) (denies SI but with mood lability and adonis/psychosis but feels safe in the hospital and feels able to a for support) Risk Factors Assessment Male: Yes : Yes Do You Have Access To A Gun?: No Health Problems: Yes Mental Health Diagnoses: Yes Substance Use Disorders: No Previous Attempt: Yes Family History of Suicide: No Previous Psychiatric Hospitalization: Yes Hopelessness: No Protective Factors Assessment Jew Beliefs: Yes Stable Relationships: Yes Supportive Family: Yes Interval History Identifying Information ADRIEL AVILA is a 64-year-old man who currently lives in [place] with his mother, has a history of intellectual disability, schizophrenia, depression and osteomyelitis, and was admitted on 11/24/24 18:29 on a 303 involuntary commitment for psychosis with disorganization leading to inability to meet his medical needs and personal safety. Chief Complaint "Good, slept good". Review of Systems Sleep Information Total Hours of Sleep: 3.25 Meal Information Percent Meal Consumed - Breakfast: 100 Percent Meal Consumed - Lunch: 75 Percent Meal Consumed - Dinner: 100 Subjective Subjective Patient was seen & assessed and interval progress reviewed with treatment team. Slept poorly. At the nurses station frequently overnight. Showered this morning. Mid-morning making some hypersexual comments and accepted a prn dose of ativan. Later took a nap. Today reports his mood is "good" and that he slept great. Discussed my concerns about his sleep, Adriel feels he always doesn't sleep much and doesn't view it as a problem. Seems slightly less paranoid when we discuss the TV wires he cut at his home. He denies any medication side effects. Remains willing for risperidone CATHERINE. Physical Exam Psychiatric Orientation: alert and oriented x 3 Apperance: appropriately dressed and appropriately groomed Eye Contact: good eye contact Motor Behavior: no abnormal motor movements Speech: + loud speech and normal rate/rhythm/volume of speech Affect: + elated affect Mood: no depressed mood and no anxious mood Thought Process: + tangential thought process and + flight of ideas Thought Content: + paranoid, + delusions and + ideas of reference Suicidal Thoughts: denies suicidal thoughts, denies suicidal plan and denies suicidal intent Homicidal Thoughts: denies homicidal thoughts Hallucinations: + auditory hallucinations and + visual hallucinations Cognition: recent memory grossly intact, remote memory grossly intact, attention grossly intact and language grossly intact Estimated Intelligence: + below average estimated intelligence Insight: + limited insight Judgment: + limited judgement Vital Signs (Past 24 Hours) Last Vital Signs Temp 36.7 C 11/27/24 06:38 Pulse 69 11/27/24 06:39 Resp 18 11/27/24 06:38 BP 123/78 11/27/24 06:39 Pulse Ox 99 11/26/24 06:00 O2 Del Method Room Air 11/26/24 06:00 Results & Data ([facility]) Laboratory Results Laboratory Results - last 24 hr 11/27/24 07:08 Estimat Average Glucose 120 Hemoglobin A1c 5.8 H Triglycerides 138 Cholesterol 123 LDL Cholesterol, Calc 64 VLDL Cholesterol, Calc 28 HDL Cholesterol 31 Cholesterol/HDL Ratio 4.0 Current Inpatient Medications Current Inpatient Medications: Current Inpatient Medications Acetaminophen (Acetaminophen 325 Mg Tab) 650 mg PO Q4H PRN PRN Reason: Headache or Minor Fever Stop: 12/24/24 18:50 Al Hydrox/Mg Hydrox/Simethicone (Aluminum/Magnesium Susp 30 Ml Udc) 30 ml PO Q4H PRN PRN Reason: GI Upset Stop: 12/24/24 18:50 Bismuth Subsalicylate (Bismuth Subsalicylate 262 Mg Chew) 2 tab PO Q30M PRN PRN Reason: Loose Stool/Diarrhea Stop: 12/24/24 18:50 Divalproex Sodium (Divalproex Extended Release 500 Mg Tab) 500 mg PO HS STEFAN Stop: 12/26/24 21:59 Last Admin: 11/26/24 20:54 Dose: 500 mg Doxycycline Hyclate (Doxycycline Hyclate 100 Mg Cap) 100 mg PO BID STEFAN Stop: 12/16/24 21:14 Last Admin: 11/27/24 08:29 Dose: 100 mg Hydroxyzine HCl (Hydroxyzine Hcl 25 Mg Tab) 50 mg PO HSZ PRN PRN Reason: Insomnia Stop: 12/24/24 18:50 Hydroxyzine HCl (Hydroxyzine Hcl 25 Mg Tab) 25 mg PO Q4H PRN PRN Reason: Anxiety Stop: 12/24/24 18:50 Lactobacillus Acidophilus (Lactobacillus Acidophilus 1 Gm Pack) 1 packet PO DAILY STEFAN Stop: 12/26/24 08:59 Last Admin: 11/27/24 08:29 Dose: 1 packet Loperamide HCl (Loperamide Hcl 2 Mg Cap) 2 mg PO QID PRN PRN Reason: diarrhea Stop: 12/25/24 11:21 Last Admin: 11/25/24 18:01 Dose: 2 mg Lorazepam (Lorazepam 1 Mg Tab) 1 mg PO TID PRN PRN Reason: Agitation Stop: 12/24/24 20:51 Magnesium Hydroxide (Magnesium Hydroxide Susp 30 Ml Udc) 30 ml PO DAILY PRN PRN Reason: Constipation Stop: 12/24/24 18:50 Olanzapine (Olanzapine 5 Mg Tablet) 5 mg PO BID PRN PRN Reason: psychosis Stop: 12/24/24 20:59 Risperidone (Risperidone Odt 0.5 Mg Soltab) 1 mg PO BID STEFAN Stop: 12/25/24 20:59 Last Admin: 11/27/24 08:28 Dose: 1 mg Sodium Chloride (Sodium Chloride 0.65% Na Soln 45 Ml ([place])) 1 - 2 sprays NA PRN PRN PRN Reason: Nasal Dryness/Congestion Stop: 12/24/24 18:50 Mental Health & Subst Abuse Tx Therapist Name of Therapist: n/a Federal Appellate Law Clerk Name of Federal Appellate Law Clerk: n/a Post Discharge Appointments Primary Care Physician Name Of Family Doctor/PCP: Elizabeth Beckford DO Primary Care Date of Future Appointment with PCP: 11/30/24 Time of Appointment with PCP: [id number] Provider Appointment Comment: [address] [facility] [id number]
[2024-11-27] MEDS: LORazepam 1 MG TAB PO PRN (10:08)
[2024-11-27] MEDS: clonazePAM 1 MG TAB PO SCH (21:08)
--- NOTE | 2024-11-28 09:03 | Psychiatric Progress Note ---
Date of Service November 28, 2024 Impression / Recommendations Impression ADRIEL AVILA is a 64-year-old man who currently lives in [place] with his mother, has a history of intellectual disability, schizophrenia, depression and osteomyelitis, and was admitted on 11/24/24 18:29 on a 303 involuntary commitment for psychosis with disorganization leading to inability to meet his medical needs and personal safety. Diagnostically consistent with unspecified psychosis with differential including schizophrenia versus schizoaffective disorder current episode of adonis versus bipolar affective disorder current episode of adonis with psychosis. Adriel was diagnosed with schizophrenia in 2009 when he experienced significant psychosis following the acute stress of his father's and then took risperidone until about 2016. He was then off of all medications for ~8 years with fairly stable psychiatric symptoms however decompensated in the last few months with multiple hospitalizations for new osteomyelitis due to an impulsive and intentional finger burn injury, job losses and delusions and flight of ideas with mood lability. Such a history, with apparent few symptoms of psychosis without medications for multiple years, suggests possibility of bipolar affective disorder rather than schizoaffective disorder type presentation. Outside records from his previous outpatient psychiatrist in 2016 are notable for prominent depression at times which would also fit with possible BPAD diagnosis. MNPR-disinhibited, poor boundaries, psychosis Overall, I spent a total of 35 minutes on this case including meeting with the patient, reviewing the chart, nursing report, multidisciplinary team meeting, orders, and documentation. (1) Unspecified psychosis not due to a substance or known physiological condition: (2) Adonis: (3) Paranoid schizophrenia: (4) Insomnia: (5) Infected blister of right index finger: Plan 11/28/2024: Sleep did improve from 3.25 yesterday, to 4.5 today. Yesterday and today though, he continues to show signs of adonis. So I will increase the risperidone to 1 mg in the morning and 2 mg nightly. Patient, and he is agreeable to this change. I also changed the Depakote from the tablet to the sprinkles, the request from nursing as patient seems to have trouble swallowing the large pill. However, he does not let the risperidone ODT dissolve and tends to just swallow it, so I did change the formulation to regular tabs for that. Continue Klonopin without change and give more time. Also entered order for patient to be able to cut nails with observation. 11/27/2024: -Start Klonopin 1mg HS -If he remains on risperidone 1mg BID consider transition to Uzedy 100mg Q60 days (this would give him 2 months of medication coverage and no need for oral overlap) 11/26/2024: -Switch to Depakote capsule 500mg HS from valproic acid 250mg BID liquid -d/c multivitamin 11/25/2024: The patient was admitted to the [facility] ([facility]) on q15 min checks (behavioral with suicide precautions) for safety. The patient will participate in group, recreational, and milieu therapies and will be offered additional individual and family sessions as clinically appropriate. -Start Depakote ER 500mg liquid HS -Continue risperidone 1mg ODT BID -Chewable multivitamin -Doxycycline 100mg BID through 12/16/2024 -Imodium prn for diarrhea Inventory Assets Strengths: supportive relationships, more willing for treatment Needs: safety and stabilization, medication adjustment, additional coping skills, increased outpatient services Suicide Risk Level Suicide Risk Level: Moderate (q15 min suicide checks) (denies SI but with mood lability and adonis/psychosis but feels safe in the hospital and feels able to ask for support) Suicide Risk Level Comments: High-Moderate due to severe depression with SI with plan prior to admission but feels safe in the hospital, able to safety contract and agrees to let nursing/staff know should they develop plan, intent or feel unable to remain safe. Risk Factors Assessment Male: Yes : Yes Do You Have Access To A Gun?: No Health Problems: Yes Mental Health Diagnoses: Yes Substance Use Disorders: No Previous Attempt: Yes Family History of Suicide: No Previous Psychiatric Hospitalization: Yes Hopelessness: No Protective Factors Assessment Scientology Beliefs: Yes Stable Relationships: Yes Supportive Family: Yes Interval History Identifying Information ADRIEL AVILA is a 64-year-old man who currently lives in [place] with his mother, has a history of intellectual disability, schizophrenia, depression and osteomyelitis, and was admitted on 11/24/24 18:29 on a 303 involuntary commitment for psychosis with disorganization leading to inability to meet his medical needs and personal safety. Chief Complaint "[]". Review of Systems Notes Constitutional: No Weight Change, No Fever, No Chills, No Night Sweats ENT/Mouth: No Hearing Changes, No Nasal Congestion, No sore throat, No Swallowing Difficulty Eyes: No Vision Changes Cardiovascular: No Chest Pain, No SOB, No Edema, No Palpitations Respiratory: No Cough, No Wheezing, No Dyspnea Gastrointestinal: No Nausea, No Vomiting, No Constipation.+diarrhea Urinary: No Frequency, No Hematuria, No Urinary Incontinence, No Dysuria Musculoskeletal: No Arthralgias, No Myalgias, No Joint Stiffness Skin: No Pruritis, No Hair Changes Neuro: No Weakness, No Numbness, No Paresthesias, No Dizziness, No Headache, No Coordination Changes, No Recent Falls Heme/Lymph: No Bruising, No Bleeding Endocrine: No Polyuria, No Polydipsia, No Temperature Intolerance Sleep Information Total Hours of Sleep: 4.5 Meal Information Percent Meal Consumed - Breakfast: 100 Percent Meal Consumed - Lunch: 100 Percent Meal Consumed - Dinner: 100 Subjective Subjective Patient was seen & assessed and interval progress reviewed with nursing and social work. Per nursing report, patient continues to have high energy and can be loud at times. He needs redirected often. He at times is intrusive to peers and staff. He has been accepting meds however. He does report the Depakote pills are too big, and they have been having to cut them in half for him. He has no complaints or pain in his finger. It remains covered and dry as per previous recommendations. He slept 4-1/2 hours last night. I met with the patient in his room. He showed me a printout of the [employer] football scores, and did not seem to have awareness of personal space requirements. He says he went to bed at 10 PM, and so he probably woke up at 230 or 3. He says at home he will stay up past 2 AM and then get up at 6 AM, and feels he has been doing this for a long time. He reports his mood is good. He denies any anxiety. He feels his medications are helping. He does report diarrhea, but no tremor or sedation. 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 Last increasing his risperidone to target the ongoing adonis, and possibly help him sleep at night. He was agreeable to this change. No auditory visual hallucinations, no clear delusions. He does describe several ongoing plans for making money when he leaves here. He asked about cutting h is nails. Physical Exam Psychiatric Orientation: alert and oriented x 3 Apperance: appropriately dressed and appropriately groomed intense Motor Behavior: + psychomotor agitation; n EPS Speech: + pressured speech fast speech. Normal volume. Normal prosody. Does continue to use "me" instead of "I". Affect: + elated affect joking and laughing. Elevated mood Thought Process: + flight of ideas and + looseness of associations ( Mild) no delusions noted. May have unrealistic ideas about how to make money after discharge. Suicidal Thoughts: denies suicidal thoughts, denies suicidal plan and denies suicidal intent Homicidal Thoughts: denies homicidal thoughts, denies homicidal plan and denies homicidal intent Hallucinations: no auditory hallucinations and no visual hallucinations Cognition: recent memory grossly intact Easily distracted Estimated Intelligence: + below average estimated intelligence Insight: + limited insight Judgment: + limited judgement Vital Signs (Past 24 Hours) Last Vital Signs Temp 36.5 C 11/28/24 06:26 Pulse 80 11/28/24 06:27 Resp 18 11/28/24 06:26 BP 109/73 11/28/24 06:27 Pulse Ox 99 11/26/24 06:00 O2 Del Method Room Air 11/26/24 06:00 Results & Data ([facility]) Current Inpatient Medications Current Inpatient Medications: Current Inpatient Medications Acetaminophen (Acetaminophen 325 Mg Tab) 650 mg PO Q4H PRN PRN Reason: Headache or Minor Fever Stop: 12/24/24 18:50 Al Hydrox/Mg Hydrox/Simethicone (Aluminum/Magnesium Susp 30 Ml Udc) 30 ml PO Q4H PRN PRN Reason: GI Upset Stop: 12/24/24 18:50 Bismuth Subsalicylate (Bismuth Subsalicylate 262 Mg Chew) 2 tab PO Q30M PRN PRN Reason: Loose Stool/Diarrhea Stop: 12/24/24 18:50 Clonazepam (Clonazepam 1 Mg Tab) 1 mg PO HS STEFAN Stop: 12/27/24 21:59 Last Admin: 11/27/24 21:08 Dose: 1 mg Divalproex Sodium (Divalproex Extended Release 500 Mg Tab) 500 mg PO HS STEFAN Stop: 12/26/24 21:59 Last Admin: 11/27/24 20:58 Dose: 500 mg Doxycycline Hyclate (Doxycycline Hyclate 100 Mg Cap) 100 mg PO BID STEFAN Stop: 12/16/24 21:14 Last Admin: 11/28/24 08:13 Dose: 100 mg Hydroxyzine HCl (Hydroxyzine Hcl 25 Mg Tab) 50 mg PO HSZ PRN PRN Reason: Insomnia Stop: 12/24/24 18:50 Hydroxyzine HCl (Hydroxyzine Hcl 25 Mg Tab) 25 mg PO Q4H PRN PRN Reason: Anxiety Stop: 12/24/24 18:50 Lactobacillus Acidophilus (Lactobacillus Acidophilus 1 Gm Pack) 1 packet PO DAILY STEFAN Stop: 12/26/24 08:59 Last Admin: 11/28/24 08:18 Dose: Not Given Loperamide HCl (Loperamide Hcl 2 Mg Cap) 2 mg PO QID PRN PRN Reason: diarrhea Stop: 12/25/24 11:21 Last Admin: 11/25/24 18:01 Dose: 2 mg Lorazepam (Lorazepam 1 Mg Tab) 1 mg PO TID PRN PRN Reason: Agitation Stop: 12/24/24 20:51 Last Admin: 11/27/24 10:08 Dose: 1 mg Magnesium Hydroxide (Magnesium Hydroxide Susp 30 Ml Udc) 30 ml PO DAILY PRN PRN Reason: Constipation Stop: 12/24/24 18:50 Olanzapine (Olanzapine 5 Mg Tablet) 5 mg PO BID PRN PRN Reason: psychosis Stop: 12/24/24 20:59 Risperidone (Risperidone Odt 0.5 Mg Soltab) 1 mg PO BID STEFAN Stop: 12/25/24 20:59 Last Admin: 11/28/24 08:13 Dose: 1 mg Sodium Chloride (Sodium Chloride 0.65% Na Soln 45 Ml ([place])) 1 - 2 sprays NA PRN PRN PRN Reason: Nasal Dryness/Congestion Stop: 12/24/24 18:50 Mental Health & Subst Abuse Tx Therapist Name of Therapist: n/a Home Theater Specialist Name of Home Theater Specialist: [employer] Post Discharge Appointments Primary Care Physician Name Of Family Doctor/PCP: Elizabeth Beckford DO Primary Care Date of Future Appointment with PCP: 12/08/24 Time of Appointment with PCP: 3pm Provider Appointment Comment: appt on 11/30 rescheduled. Post hospital follow up. 40min appointment Contact Information Discharge Discharge Address: [address] [place] [address], [place] [address]
[2024-11-28] MEDS: DIVALPROEX SODIUM SPRINKLE/DEL-REL 125 MG CAP PO SCH (20:59)
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
[2024-11-29] MEDS: RISPERIDONE SQ SCH (15:27)
--- NOTE | 2024-11-30 09:17 | Psychiatric Progress Note ---
Date of Service November 30, 2024 Impression / Recommendations Impression ADRIEL AVILA is a 64-year-old man who currently lives in [place] with his mother, has a history of intellectual disability, schizophrenia, depression and osteomyelitis, and was admitted on 11/24/24 18:29 on a 303 involuntary commitment for psychosis with disorganization leading to inability to meet his medical needs and personal safety. Diagnostically consistent with unspecified psychosis with differential including schizophrenia versus schizoaffective disorder current episode of adonis versus bipolar affective disorder current episode of adonis with psychosis. Adriel was diagnosed with schizophrenia in 2009 when he experienced significant psychosis following the acute stress of his father's and then took risperidone until about 2016. He was then off of all medications for ~8 years with fairly stable psychiatric symptoms however decompensated in the last few months with multiple hospitalizations for new osteomyelitis due to an impulsive and intentional finger burn injury, job losses and delusions and flight of ideas with mood lability. Such a history, with apparent few symptoms of psychosis without medications for multiple years, suggests possibility of bipolar affective disorder rather than schizoaffective disorder type presentation. Outside records from his previous outpatient psychiatrist in 2016 are notable for prominent depression at times which would also fit with possible BPAD diagnosis. MNPR-disinhibited, poor boundaries, psychosis Overall, I spent a total of 35 minutes on this case including meeting with the patient, reviewing the chart, nursing report, multidisciplinary team meeting, orders, and documentation. (1) Unspecified psychosis not due to a substance or known physiological condition: (2) Adonis: (3) Insomnia: (4) Infected blister of right index finger: (5) Severe manic bipolar 1 disorder with psychotic behavior: Plan 11/30/24: Sleep continues to improve. Uzedy Injection was administered yesterday, and risperidone was discontinued. At his request I will change the Depakote back to the tabs, and set of a large 500 mg tab I ordered to 250 mg tabs, which will hopefully be easier to swallow. It also appears he has not had a Depakote level or CMP since he started Depakote, so I ordered that for tomorrow AM. A1c and fasting lipid panel were already obtained. Team is looking for feedback from his sister at the meeting today, which will inform our assessment of his readiness for discharge. Adonis is improving, but he may have some baseline impulsivity related to the intellectual disability, so we are hoping the family can provide some information about patient's baseline. 11/29/24: Sleep further improved today. He is still interested in the use the Uzedy injection, and symptoms are improving significantly on his present dose of risperidone, so I did order Uzedy 100mg for tomorrow. Discontinue oral risperidone. Continue Klonopin and Depakote without change. Social work will arrange a family meeting with the mother to get her input on whether he is close to baseline. 11/28/2024: Sleep did improve from 3.25 yesterday, to 4.5 today. Yesterday and today though, he continues to show signs of adonis. So I will increase the risperidone to 1 mg in the morning and 2 mg nightly. Patient, and he is agreeable to this change. I also changed the Depakote from the tablet to the sprinkles, the request from nursing as patient seems to have trouble swallowing the large pill. However, he does not let the risperidone ODT dissolve and tends to just swallow it, so I did change the formulation to regular tabs for that. Continue Klonopin without change and give more time. Also entered order for patient to be able to cut nails with observation. 11/27/2024: -Start Klonopin 1mg HS -If he remains on risperidone 1mg BID consider transition to Uzedy 100mg Q60 days (this would give him 2 months of medication coverage and no need for oral overlap) 11/26/2024: -Switch to Depakote capsule 500mg HS from valproic acid 250mg BID liquid -d/c multivitamin 11/25/2024: The patient was admitted to the [facility] ([facility]) on q15 min checks (behavioral with suicide precautions) for safety. The patient will participate in group, recreational, and milieu therapies and will be offered additional individual and family sessions as clinically appropriate. -Start Depakote ER 500mg liquid HS -Continue risperidone 1mg ODT BID -Chewable multivitamin -Doxycycline 100mg BID through 12/16/2024 -Imodium prn for diarrhea Inventory Assets Strengths: supportive relationships, more willing for treatment Needs: safety and stabilization, medication adjustment, additional coping skills, increased outpatient services Suicide Risk Level Suicide Risk Level: Moderate (q15 min suicide checks) (denies SI but with mood lability and adonis/psychosis but feels safe in the hospital and feels able to ask for support) Suicide Risk Level Comments: High-Moderate due to severe depression with SI with plan prior to admission but feels safe in the hospital, able to safety contract and agrees to let nursing/staff know should they develop plan, intent or feel unable to remain safe. Risk Factors Assessment Male: Yes : Yes Do You Have Access To A Gun?: No Health Problems: Yes Mental Health Diagnoses: Yes Substance Use Disorders: No Previous Attempt: Yes Family History of Suicide: No Previous Psychiatric Hospitalization: Yes Hopelessness: No Protective Factors Assessment Orthodox Beliefs: Yes Stable Relationships: Yes Supportive Family: Yes Interval History Identifying Information ADRIEL AVILA is a 64-year-old man who currently lives in [place] with his mother, has a history of intellectual disability, schizophrenia, depression and osteomyelitis, and was admitted on 11/24/24 18:29 on a 303 involuntary commitment for psychosis with disorganization leading to inability to meet his medical needs and personal safety. Chief Complaint "[]". Review of Systems Sleep Information Total Hours of Sleep: 7.25 Meal Information Percent Meal Consumed - Breakfast: 90 Percent Meal Consumed - Lunch: 100 Percent Meal Consumed - Dinner: 100 Subjective Subjective Patient was seen & assessed and interval progress reviewed with treatment team per nursing report, patient slept well, about 7 hours yesterday. He showered this morning. He continues to appear jovial and at times intrusive. He requires frequent redirection as he can be inappropriate with boundaries with both peers and staff. He continues speaking with the "me" pronoun. He got the Uzedy injection yesterday and there were no complications. I met with the patient in his room. He was feeling happy due to the therapy dog visiting this morning. He acknowledges that he was angry earlier in his stay, and feels that has resolved. He says having support has helped him feel "happier". he says his thoughts feel "slower", but clarifies that this is a good improvement. He denies suicidal ideation, homicidal ideation, hallucinations and delusions. He says he is struggling with the Depakote sprinkle tabs as they do not taste good, and the capsules are difficult to swallow. He said his preference was in the Depakote tabs, and requested changing back to that. He has a meeting with his sister scheduled for later today. He denies tremor. No dizziness. No pain. Still has intermittent diarrhea. Physical Exam Vital Signs (Past 24 Hours) Last Vital Signs Temp 36.5 C 11/30/24 06:24 Pulse 86 11/30/24 06:25 Resp 16 11/30/24 06:24 BP 100/68 11/30/24 06:25 Pulse Ox 99 11/26/24 06:00 O2 Del Method Room Air 11/26/24 06:00 Results & Data ([facility]) Current Inpatient Medications Current Inpatient Medications: Current Inpatient Medications Acetaminophen (Acetaminophen 325 Mg Tab) 650 mg PO Q4H PRN PRN Reason: Headache or Minor Fever Stop: 12/24/24 18:50 Al Hydrox/Mg Hydrox/Simethicone (Aluminum/Magnesium Susp 30 Ml Udc) 30 ml PO Q4H PRN PRN Reason: GI Upset Stop: 12/24/24 18:50 Bismuth Subsalicylate (Bismuth Subsalicylate 262 Mg Chew) 2 tab PO Q30M PRN PRN Reason: Loose Stool/Diarrhea Stop: 12/24/24 18:50 Clonazepam (Clonazepam 1 Mg Tab) 1 mg PO HS STEFAN Stop: 12/27/24 21:59 Last Admin: 11/29/24 20:19 Dose: 1 mg Divalproex Sodium (Divalproex Sodium Sprinkle/Del-Rel 125 Mg Cap) 250 mg PO BID STEFAN Stop: 12/28/24 20:59 Last Admin: 11/30/24 08:45 Dose: 250 mg Doxycycline Hyclate (Doxycycline Hyclate 100 Mg Cap) 100 mg PO BID STEFAN Stop: 12/16/24 21:14 Last Admin: 11/30/24 08:45 Dose: 100 mg Hydroxyzine HCl (Hydroxyzine Hcl 25 Mg Tab) 50 mg PO HSZ PRN PRN Reason: Insomnia Stop: 12/24/24 18:50 Hydroxyzine HCl (Hydroxyzine Hcl 25 Mg Tab) 25 mg PO Q4H PRN PRN Reason: Anxiety Stop: 12/24/24 18:50 Lactobacillus Acidophilus (Lactobacillus Acidophilus 1 Gm Pack) 1 packet PO DAILY STEFAN Stop: 12/26/24 08:59 Last Admin: 11/30/24 08:45 Dose: 1 packet Loperamide HCl (Loperamide Hcl 2 Mg Cap) 2 mg PO QID PRN PRN Reason: diarrhea Stop: 12/25/24 11:21 Last Admin: 11/25/24 18:01 Dose: 2 mg Lorazepam (Lorazepam 1 Mg Tab) 1 mg PO TID PRN PRN Reason: Agitation Stop: 12/24/24 20:51 Last Admin: 11/27/24 10:08 Dose: 1 mg Magnesium Hydroxide (Magnesium Hydroxide Susp 30 Ml Udc) 30 ml PO DAILY PRN PRN Reason: Constipation Stop: 12/24/24 18:50 Olanzapine (Olanzapine 5 Mg Tablet) 5 mg PO BID PRN PRN Reason: psychosis Stop: 12/24/24 20:59 Risperidone (Risperidone 100 Mg/0.28 Ml Syr) 100 mg SQ Q30D STEFAN Stop: 12/29/24 13:59 Last Admin: 11/29/24 15:27 Dose: 100 mg Sodium Chloride (Sodium Chloride 0.65% Na Soln 45 Ml ([place])) 1 - 2 sprays NA PRN PRN PRN Reason: Nasal Dryness/Congestion Stop: 12/24/24 18:50 Mental Health & Subst Abuse Tx Therapist Name of Therapist: n/a 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 Post hospital follow up. 40min appointment Contact Information Discharge Discharge Address: [facility], [place] [address]
[2024-11-30] MEDS: DIVALPROEX EXTENDED RELEASE 500 MG TAB PO SCH (20:21)
[2024-12-01 06:44] VITALS: RESP 18
[2024-12-01 08:18] LABS: Alanine Aminotransferase 13.0 U/L (7-52); Albumin Globulin Ratio 1.4 (0.9-2); Albumin Level 4.2 gm/dl (3.4-5.0); Alkaline Phosphatase 79.0 U/L (34-104); Anion Gap 4.0 (3-11); Bilirubin,Total 0.6 mg/dl (0.2-1.0); Blood Urea Nitrogen 8.0 mg/dl (6-23); Calcium 9.0 mg/dl (8.6-10.3); Carbon Dioxide 33.0 mmol/L (21-32); Chloride 102.0 mmol/L (98-107); Creatinine Clr Calc Pharmacy 84.2 ml/min; Globulin 3.1 gm/dl (2.5-4.0); Glucose 92.0 mg/dl (70-99(Fasting)); Potassium 4.5 mmol/L (3.5-5.1); Sodium 139.0 mmol/L (136-145); Total Protein 7.3 gm/dl (6.0-8.3)
--- NOTE | 2024-12-01 09:00 | Psychiatric Progress Note ---
Date of Service December 01, 2024 Impression / Recommendations Impression ADRIEL AVILA is a 64-year-old man who currently lives in [place] with his mother, has a history of intellectual disability, schizophrenia, depression and osteomyelitis, and was admitted on 11/24/24 18:29 on a 303 involuntary commitment for psychosis with disorganization leading to inability to meet his medical needs and personal safety. Diagnostically consistent with unspecified psychosis with differential including schizophrenia versus schizoaffective disorder current episode of adonis versus bipolar affective disorder current episode of adonis with psychosis. Adriel was diagnosed with schizophrenia in 2009 when he experienced significant psychosis following the acute stress of his father's and then took risperidone until about 2016. He was then off of all medications for ~8 years with fairly stable psychiatric symptoms however decompensated in the last few months with multiple hospitalizations for new osteomyelitis due to an impulsive and intentional finger burn injury, job losses and delusions and flight of ideas with mood lability. Such a history, with apparent few symptoms of psychosis without medications for multiple years, suggests possibility of bipolar affective disorder rather than schizoaffective disorder type presentation. Outside records from his previous outpatient psychiatrist in 2016 are notable for prominent depression at times which would also fit with possible BPAD diagnosis. MNPR-disinhibited, poor boundaries, psychosis Overall, I spent a total of 40 minutes on this case including meeting with the patient, reviewing the chart, nursing report, multidisciplinary team meeting, orders, and documentation. (1) Infected blister of right index finger: (2) Severe manic bipolar 1 disorder with psychotic behavior: Plan 12/01/24: -I added a CBC with differential to the lab work for today. Reviewed CMP and CBC- no thrombocytosis, no transaminitis, no other abnormalities attributed to his medications. Anemia has actually improved some. His Depakote level was subtherapeutic at 46. - I increased the Depakote ER to 750 mg QHS. continue Klonopin without change. - We have seen improvements in patient's presentation, specifically sleep has improved, he has minimal if any irritability, and he has been maintaining his ADLs appropriately. Although he still has a mild degree of impulsivity, he has not demonstrated any dangerous or reckless behavior here. He continues to have poor boundaries especially with peers, and does need redirection about how to act appropriately in a social situation. However, we suspect that most of this is likely baseline behavior. We have been encouraging him to adjust his speech, avoid the childlike prosody and start using "I" again. He has responded to this but needs reminders. He also continues to have no suicidal ideation, no HI or psychosis. For these reasons, he is nearing readiness for discharge, which will likely occur tomorrow. 11/30/24: Sleep continues to improve. Uzedy Injection was administered yesterday, and risperidone was discontinued. At his request I will change the Depakote back to the tabs, and set of a large 500 mg tab I ordered to 250 mg tabs, which will hopefully be easier to swallow. It also appears he has not had a Depakote level or CMP since he started Depakote, so I ordered that for tomorrow AM. A1c and fasting lipid panel were already obtained. Team is looking for feedback from his sister at the meeting today, which will inform our assessment of his readiness for discharge. Adonis is improving, but he may have some baseline impulsivity related to the intellectual disability, so we are hoping the family can provide some information about patient's baseline. 11/29/24: Sleep further improved today. He is still interested in the use the Uzedy injection, and symptoms are improving significantly on his present dose of risperidone, so I did order Uzedy 100mg for tomorrow. Discontinue oral risperidone. Continue Klonopin and Depakote without change. Social work will arrange a family meeting with the mother to get her input on whether he is close to baseline. 11/28/2024: Sleep did improve from 3.25 yesterday, to 4.5 today. Yesterday and today though, he continues to show signs of adonis. So I will increase the risperidone to 1 mg in the morning and 2 mg nightly. Patient, and he is agreeable to this change. I also changed the Depakote from the tablet to the sprinkles, the request from nursing as patient seems to have trouble swallowing the large pill. However, he does not let the risperidone ODT dissolve and tends to just swallow it, so I did change the formulation to regular tabs for that. Continue Klonopin without change and give more time. Also entered order for kajal ricks to be able to cut nails with observation. 11/27/2024: -Start Klonopin 1mg HS -If he remains on risperidone 1mg BID consider transition to Uzedy 100mg Q60 days (this would give him 2 months of medication coverage and no need for oral overlap) 11/26/2024: -Switch to Depakote capsule 500mg HS from valproic acid 250mg BID liquid -d/c multivitamin 11/25/2024: The patient was admitted to the [facility] ([facility]) on q15 min checks (behavioral with suicide precautions) for safety. The patient will participate in group, recreational, and milieu therapies and will be offered additional individual and family sessions as clinically appropriate. -Start Depakote ER 500mg liquid HS -Continue risperidone 1mg ODT BID -Chewable multivitamin -Doxycycline 100mg BID through 12/16/2024 -Imodium prn for diarrhea Inventory Assets Strengths: supportive relationships, more willing for treatment Needs: safety and stabilization, medication adjustment, additional coping skills, increased outpatient services Suicide Risk Level Suicide Risk Level: Moderate (q15 min suicide checks) Suicide Risk Level Comments: Low-moderate - Had SI prior to admission, but this has resolved. He is able to safety contract and agrees to let nursing/staff know should they develop plan, intent or feel unable to remain safe. Risk Factors Assessment Male: Yes : Yes Do You Have Access To A Gun?: No Health Problems: Yes Mental Health Diagnoses: Yes Substance Use Disorders: No Previous Attempt: Yes Family History of Suicide: No Previous Psychiatric Hospitalization: Yes Hopelessness: No Protective Factors Assessment Synagogue Beliefs: Yes Stable Relationships: Yes Supportive Family: Yes Interval History Identifying Information ADRIEL AVILA is a 64-year-old man who currently lives in [place] with his mother, has a history of intellectual disability, schizophrenia, depression and osteomyelitis, and was admitted on 11/24/24 18:29 on a 303 involuntary commitment for psychosis with disorganization leading to inability to meet his medical needs and personal safety. Chief Complaint "[]". Review of Systems Sleep Information Total Hours of Sleep: 5.25 Meal Information Percent Meal Consumed - Breakfast: 90 Percent Meal Consumed - Lunch: 100 Percent Meal Consumed - Dinner: 90 Subjective Subjective Patient was seen & assessed and interval progress reviewed with nursing and social work. Per nursing report, patient continues to need frequent redirection. He can be intrusive with peers, and in group struggles to wait his turn/not interrupt others were speaking. He has not been agitated or irritable however. He rates his mood a 10 out of 10 and reports feeling "happy". He met with the director of casework department yesterday who will follow with him out patient. She is scheduled their follow-up appointment for next week as well. The support meeting with his sister went well. Sister agreed to pick him up upon discharge, and plans to manage his medication and get him to appointments. Patient had a brief moment of irritability was specifically in the support meeting, but was not agitated and behavior. It seemed to be specifically in response to his sister voicing concern about his temper in the past. Several staff have encouraged him to focus on using "I" when speaking. He can succeed at this briefly, and then regresses back to "me". I met with the patient in his room today. He initially was speaking in his childlike way, but once I reminded him to use "I" he did self-correct several times during the course of our encounter. He denies any significant irritability. He says he is feeling well and enjoys being here. He is though looking forward to going home soon. Discussed that he plans to follow-up with his PCP about his finger, and he is aware he has case management appointment for next week. He continues to sleep well. He has intermittent diarrhea, but says it is "not bad." No tremor or gait disturbance. No tardive dyskinesia. No change to appetite or weight. He denies SI, denies HI, denies any hallucinations. No delusional content reported or observed during our session. Physical Exam Psychiatric Orientation: alert and oriented x 3 Apperance: appropriately dressed and appropriately groomed Eye Contact: good eye contact Motor Behavior: steady gait and station and no abnormal motor movements; no psychomotor agitation, no psychomotor retardation and n EPS Speech: normal rate/rhythm/volume of speech Rambling at times. childlike prosody comes in and out Affect: euthymic affect and mood congruent with affect pleasant, jovial "happy" Thought Process: goal directed thought process and + circumstantial thought process Thought Content: no preoccupation, no obsessions, no delusions, no hopelessness and no worthlessness Suicidal Thoughts: denies suicidal thoughts, denies suicidal plan and denies suicidal intent Homicidal Thoughts: denies homicidal thoughts, denies homicidal plan and denies homicidal intent Hallucinations: no auditory hallucinations and no visual hallucinations Cognition: recent memory grossly intact, remote memory grossly intact and language grossly intact still mildlly distractible, which may be baseline. able to attend briefly Estimated Intelligence: + below average estimated intelligence Insight: + fair insight Judgment: + limited judgement Vital Signs (Past 24 Hours) Last Vital Signs Temp 36.4 C L 12/01/24 06:42 Pulse 80 12/01/24 06:43 Resp 18 12/01/24 06:42 BP 119/77 12/01/24 06:43 Pulse Ox 99 11/26/24 06:00 O2 Del Method Room Air 11/26/24 06:00 Results & Data ([facility]) Laboratory Results Laboratory Results - last 24 hr 12/01/24 07:44 Sodium 139 Potassium 4.5 Chloride 102 Carbon Dioxide 33 H Anion Gap 4 BUN 8 Creatinine 0.91 Est Cr Clr Drug Dosing 84.2 eGFR 95.29 BUN/Creatinine Ratio 8.8 L Glucose 92 Calcium 9.0 Total Bilirubin 0.6 AST 16 ALT 13 Alkaline Phosphatase 79 Total Protein 7.3 Albumin 4.2 Globulin 3.1 Albumin/Globulin Ratio 1.4 Valproic Acid Pending Current Inpatient Medications Current Inpatient Medications: Current Inpatient Medications Acetaminophen (Acetaminophen 325 Mg Tab) 650 mg PO Q4H PRN PRN Reason: Headache or Minor Fever Stop: 12/24/24 18:50 Al Hydrox/Mg Hydrox/Simethicone (Aluminum/Magnesium Susp 30 Ml Udc) 30 ml PO Q4H PRN PRN Reason: GI Upset Stop: 12/24/24 18:50 Bismuth Subsalicylate (Bismuth Subsalicylate 262 Mg Chew) 2 tab PO Q30M PRN PRN Reason: Loose Stool/Diarrhea Stop: 12/24/24 18:50 Clonazepam (Clonazepam 1 Mg Tab) 1 mg PO HS STEFAN Stop: 12/27/24 21:59 Last Admin: 11/30/24 20:21 Dose: 1 mg Divalproex Sodium (Divalproex Extended Release 500 Mg Tab) 500 mg PO HS STEFAN Stop: 12/30/24 21:59 Last Admin: 11/30/24 20:21 Dose: 500 mg Doxycycline Hyclate (Doxycycline Hyclate 100 Mg Cap) 100 mg PO BID STEFAN Stop: 12/16/24 21:14 Last Admin: 12/01/24 08:31 Dose: 100 mg Hydroxyzine HCl (Hydroxyzine Hcl 25 Mg Tab) 50 mg PO HSZ PRN PRN Reason: Insomnia Stop: 12/24/24 18:50 Hydroxyzine HCl (Hydroxyzine Hcl 25 Mg Tab) 25 mg PO Q4H PRN PRN Reason: Anxiety Stop: 12/24/24 18:50 Lactobacillus Acidophilus (Lactobacillus Acidophilus 1 Gm Pack) 1 packet PO DAILY STEFAN Stop: 12/26/24 08:59 Last Admin: 12/01/24 08:31 Dose: 1 packet Loperamide HCl (Loperamide Hcl 2 Mg Cap) 2 mg PO QID PRN PRN Reason: diarrhea Stop: 12/25/24 11:21 Last Admin: 11/25/24 18:01 Dose: 2 mg Lorazepam (Lorazepam 1 Mg Tab) 1 mg PO TID PRN PRN Reason: Agitation Stop: 12/24/24 20:51 Last Admin: 11/27/24 10:08 Dose: 1 mg Magnesium Hydroxide (Magnesium Hydroxide Susp 30 Ml Udc) 30 ml PO DAILY PRN PRN Reason: Constipation Stop: 12/24/24 18:50 Olanzapine (Olanzapine 5 Mg Tablet) 5 mg PO BID PRN PRN Reason: psychosis Stop: 12/24/24 20:59 Risperidone (Risperidone 100 Mg/0.28 Ml Syr) 100 mg SQ Q30D STEFAN Stop: 12/29/24 13:59 Last Admin: 11/29/24 15:27 Dose: 100 mg Sodium Chloride (Sodium Chloride 0.65% Na Soln 45 Ml ([place])) 1 - 2 sprays NA PRN PRN PRN Reason: Nasal Dryness/Congestion Stop: 12/24/24 18:50 Mental Health & Subst Abuse Tx Psychiatrist Name of Psychiatrist: Dayana Sanchez ([address], [place] [address]) Psychiatrist's Date Of Appointment With Psychiatric Provider: 12/18/24 Time of Appointment with Psychiatrist: 8:10AM arrival, 24hr cancellation policy Psychiatric Appointment Comment: Next injection will be scheduled after intake (next injection due 01/28/25) Therapist Name of Therapist: N/A Machine Driller Name of Machine Driller: [employer] Phone Number for Machine Driller: [phone] Case Management Appointment Comment: closing manager is Ale [phone], will contact you for follow up appts Post Discharge Appointments Primary Care Physician Name Of Family Doctor/PCP: Elizabeth Beckford DO Primary Care Date of Future Appointment with PCP: 12/08/24 Time of Appointment with PCP: 3pm Provider Appointment Comment: appt on 11/30 rescheduled. Post hospital follow up. 40min appointment Contact Information Discharge Discharge Address: [facility] [address], [place] [address]
[2024-12-01 11:59] LABS: Hematocrit (blood only) 39.0 % (42.0-52.0); Hemoglobin 12.6 g/dl (14.0-18.0); Mean Corpuscular Hemoglobin 29.8 pg (25.0-34.0); Mean Corpuscular Volume 92.2 fL (80.0-100.0); Platelet Count 188 K/uL (130-400); RDW Standard Deviation 48.8 fL (36.4-46.3); Red Blood Count 4.23 M/uL (4.70-6.10); White Blood Count 5.47 K/ul (4.8-10.8)
[2024-12-01 12:56] LABS: Immature Granulocytes # (auto) 0.21 K/uL (0.01-0.20); Immature Granulocytes % (auto) 3.8 %
[2024-12-01] MEDS: DIVALPROEX EXTENDED RELEASE 250 MG TABCR PO SCH (21:20)
[2024-12-02 06:34] VITALS: BP 115/77; TEMP 97.3
--- NOTE | 2024-12-02 09:07 | Psychiatric Progress Note ---
Date of Service December 02, 2024 Impression / Recommendations Impression ADRIEL AVILA is a 64-year-old man who currently lives in [place] with his mother, has a history of intellectual disability, schizophrenia, depression and osteomyelitis, and was admitted on 11/24/24 18:29 on a 303 involuntary commitment for psychosis with disorganization leading to inability to meet his medical needs and personal safety. Diagnostically consistent with unspecified psychosis with differential including schizophrenia versus schizoaffective disorder current episode of adonis versus bipolar affective disorder current episode of adonis with psychosis. Adriel was diagnosed with schizophrenia in 2009 when he experienced significant psychosis following the acute stress of his father's and then took risperidone until about 2016. He was then off of all medications for ~8 years with fairly stable psychiatric symptoms however decompensated in the last few months with multiple hospitalizations for new osteomyelitis due to an impulsive and intentional finger burn injury, job losses and delusions and flight of ideas with mood lability. Such a history, with apparent few symptoms of psychosis without medications for multiple years, suggests possibility of bipolar affective disorder rather than schizoaffective disorder type presentation. Outside records from his previous outpatient psychiatrist in 2016 are notable for prominent depression at times which would also fit with possible BPAD diagnosis. MNPR-disinhibited, poor boundaries, psychosis Overall, I spent a total of 40 minutes on this case including meeting with the patient, reviewing the chart, nursing report, multidisciplinary team meeting, orders, and documentation. (1) Infected blister of right index finger: (2) Severe manic bipolar 1 disorder with psychotic behavior: Plan 11/30/24: Sleep continues to improve. Uzedy Injection was administered yesterday, and risperidone was discontinued. At his request I will change the Depakote back to the tabs, and set of a large 500 mg tab I ordered to 250 mg tabs, which will hopefully be easier to swallow. It also appears he has not had a Depakote level or CMP since he started Depakote, so I ordered that for tomorrow AM. A1c and fasting lipid panel were already obtained. Team is looking for feedback from his sister at the meeting today, which will inform our assessment of his readiness for discharge. Adonis is improving, but he may have some baseline impulsivity related to the intellectual disability, so we are hoping the family can provide some information about patient's baseline. 11/29/24: Sleep further improved today. He is still interested in the use the Uzedy injection, and symptoms are improving significantly on his present dose of risperidone, so I did order Uzedy 100mg for tomorrow. Discontinue oral risperidone. Continue Klonopin and Depakote without change. Social work will arrange a family meeting with the mother to get her input on whether he is close to baseline. 11/28/2024: Sleep did improve from 3.25 yesterday, to 4.5 today. Yesterday and today though, he continues to show signs of adonis. So I will increase the risperidone to 1 mg in the morning and 2 mg nightly. Patient, and he is agreeable to this change. I also changed the Depakote from the tablet to the sprinkles, the request from nursing as patient seems to have trouble swallowing the large pill. However, he does not let the risperidone ODT dissolve and tends to just swallow it, so I did change the formulation to regular tabs for that. Continue Klonopin without change and give more time. Also entered order for patient to be able to cut nails with observation. 11/27/2024: -Start Klonopin 1mg HS -If he remains on risperidone 1mg BID consider transition to Uzedy 100mg Q60 days (this would give him 2 months of medication coverage and no need for oral overlap) 11/26/2024: -Switch to Depakote capsule 500mg HS from valproic acid 250mg BID liquid -d/c multivitamin 11/25/2024: The patient was admitted to the [facility] ([facility]) on q15 min checks (behavioral with suicide precautions) for safety. The patient will participate in group, recreational, and milieu therapies and will be offered additional individual and family sessions as clinically appropriate. -Start Depakote ER 500mg liquid HS -Continue risperidone 1mg ODT BID -Chewable multivitamin -Doxycycline 100mg BID through 12/16/2024 -Imodium prn for diarrhea Inventory Assets Strengths: supportive relationships, more willing for treatment Needs: safety and stabilization, medication adjustment, additional coping skills, increased outpatient services Suicide Risk Level Suicide Risk Level: Moderate (q15 min suicide checks) Suicide Risk Level Comments: Low-moderate - Had SI prior to admission, but this has resolved. He is able to safety contract and agrees to let nursing/staff know should they develop plan, intent or feel unable to remain safe. Risk Factors Assessment Male: Yes : Yes Do You Have Access To A Gun?: No Health Problems: Yes Mental Health Diagnoses: Yes Substance Use Disorders: No Previous Attempt: Yes Family History of Suicide: No Previous Psychiatric Hospitalization: Yes Hopelessness: No Protective Factors Assessment Evangelical Beliefs: Yes Stable Relationships: Yes Supportive Family: Yes Interval History Identifying Information ADRIEL AVILA is a 64-year-old man who currently lives in [place] with his mother, has a history of intellectual disability, schizophrenia, depression and osteomyelitis, and was admitted on 11/24/24 18:29 on a 303 involuntary commitment for psychosis with disorganization leading to inability to meet his medical needs and personal safety. Chief Complaint "[]". Review of Systems Sleep Information Total Hours of Sleep: 3.75 Meal Information Percent Meal Consumed - Breakfast: 100 Percent Meal Consumed - Lunch: 100 Percent Meal Consumed - Dinner: 100 Subjective Subjective Patient was seen & assessed and interval progress reviewed with [treatment team] [nursing and social work] disruptive made inappropriate comments to a female peer positive visit with sister and SANDRITA last evening sister says he's seeming better. Physical Exam Vital Signs (Past 24 Hours) Last Vital Signs Temp 36.3 C L 12/02/24 06:33 Pulse 82 12/02/24 06:33 Resp 18 12/02/24 06:33 BP 115/77 12/02/24 06:33 Pulse Ox 99 11/26/24 06:00 O2 Del Method Room Air 11/26/24 06:00 Results & Data ([facility]) Laboratory Results Laboratory Results - last 24 hr 12/01/24 12/01/24 07:44 11:36 WBC 5.47 RBC 4.23 L Hgb 12.6 L Hct 39.0 L MCV 92.2 MCH 29.8 MCHC 32.3 RDW Std Deviation 48.8 H RDW Coeff of Iker 14.6 H Plt Count 188 MPV 10.6 Immature Gran % (Auto) 3.8 Neut % (Auto) 49.6 Lymph % (Auto) 37.1 Metcalfe % (Auto) 1.1 Eos % (Auto) 2.9 Baso % (Auto) 5.5 Neut # (Auto) 2.71 Lymph # (Auto) 2.03 Metcalfe # (Auto) 0.06 L Eos # (Auto) 0.16 Baso # (Auto) 0.30 H Immature Gran # (Auto) 0.21 H Valproic Acid 46 L Current Inpatient Medications Current Inpatient Medications: Current Inpatient Medications Acetaminophen (Acetaminophen 325 Mg Tab) 650 mg PO Q4H PRN PRN Reason: Headache or Minor Fever Stop: 12/24/24 18:50 Al Hydrox/Mg Hydrox/Simethicone (Aluminum/Magnesium Susp 30 Ml Udc) 30 ml PO Q4H PRN PRN Reason: GI Upset Stop: 12/24/24 18:50 Bismuth Subsalicylate (Bismuth Subsalicylate 262 Mg Chew) 2 tab PO Q30M PRN PRN Reason: Loose Stool/Diarrhea Stop: 12/24/24 18:50 Clonazepam (Clonazepam 1 Mg Tab) 1 mg PO HS STEFAN Stop: 12/27/24 21:59 Last Admin: 12/01/24 21:21 Dose: 1 mg Divalproex Sodium (Divalproex Extended Release 250 Mg Tabcr) 750 mg PO HS STEFAN Stop: 12/31/24 21:59 Last Admin: 12/01/24 21:20 Dose: 750 mg Doxycycline Hyclate (Doxycycline Hyclate 100 Mg Cap) 100 mg PO BID STEFAN Stop: 12/16/24 21:14 Last Admin: 12/01/24 21:20 Dose: 100 mg Hydroxyzine HCl (Hydroxyzine Hcl 25 Mg Tab) 50 mg PO HSZ PRN PRN Reason: Insomnia Stop: 12/24/24 18:50 Hydroxyzine HCl (Hydroxyzine Hcl 25 Mg Tab) 25 mg PO Q4H PRN PRN Reason: Anxiety Stop: 12/24/24 18:50 Lactobacillus Acidophilus (Lactobacillus Acidophilus 1 Gm Pack) 1 packet PO DAILY STEFAN Stop: 12/26/24 08:59 Last Admin: 12/01/24 08:31 Dose: 1 packet Loperamide HCl (Loperamide Hcl 2 Mg Cap) 2 mg PO QID PRN PRN Reason: diarrhea Stop: 12/25/24 11:21 Last Admin: 11/25/24 18:01 Dose: 2 mg Lorazepam (Lorazepam 1 Mg Tab) 1 mg PO TID PRN PRN Reason: Agitation Stop: 12/24/24 20:51 Last Admin: 11/27/24 10:08 Dose: 1 mg Magnesium Hydroxide (Magnesium Hydroxide Susp 30 Ml Udc) 30 ml PO DAILY PRN PRN Reason: Constipation Stop: 12/24/24 18:50 Olanzapine (Olanzapine 5 Mg Tablet) 5 mg PO BID PRN PRN Reason: psychosis Stop: 12/24/24 20:59 Risperidone (Risperidone 100 Mg/0.28 Ml Syr) 100 mg SQ Q30D STEFAN Stop: 12/29/24 13:59 Last Admin: 11/29/24 15:27 Dose: 100 mg Sodium Chloride (Sodium Chloride 0.65% Na Soln 45 Ml ([place])) 1 - 2 sprays NA PRN PRN PRN Reason: Nasal Dryness/Congestion Stop: 12/24/24 18:50 Mental Health & Subst Abuse Tx Psychiatrist Name of Psychiatrist: Dayana Sanchez ([address], [place] [address]) Psychiatrist's Date Of Appointment With Psychiatric Provider: 12/18/24 Time of Appointment with Psychiatrist: 8:10AM arrival, 24hr cancellation policy Psychiatric Appointment Comment: Next injection will be scheduled after intake (next injection due 01/28/25) Therapist Name of Therapist: N/A Cutter Aluminum Sheet Name of Cutter Aluminum Sheet: [employer] Phone Number for Cutter Aluminum Sheet: [phone] Case Management Appointment Comment: manager bakery is Ale [phone], will contact you for follow up appts Post Discharge Appointments Primary Care Physician Name Of Family Doctor/PCP: Elizabeth Beckford DO Primary Care Date of Future Appointment with PCP: 12/08/24 Time of Appointment with PCP: 3pm Provider Appointment Comment: appt on 11/30 rescheduled. Post hospital follow up. 40min appointment Contact Information Discharge Discharge Address: [facility] [address], [place] [address]
[2024-12-02 12:07] VITALS: PULSE 76
--- NOTE | 2024-12-02 18:07 | Discharge Summary ---
Date of Service December 02, 2024 History of Present Illness Adriel presents for psychiatric admission for threatening statements to EMS prior to medical admission for osteomyelitis due to outpatient medication non- adherence and with current symptoms of adonis and psychosis. Prior to being admitted medically he reportedly made threats to shoot EMS personnel and blow up the hospital although he denies making these statements and denies that he would ever try to harm anyone. Today states he has been experiencing loose stools which we discussed could be due to the transition to oral antibiotic for his osteomyelitis. He reports this is not normal for him and that it "came on quickly" resulting and bowel incontinence overnight. He mentions difficulty making it to the bathroom in time stating "I felt it coming but I could not get there in time". His mental status appears significantly altered with signs of euphoric adonis. He engages in tangential speech discussing topics such as football, DVDs and television shows without clear relevance. He goes on to start talking about [employer] and [employer] songs and somehow relating this with local police in a manner that is difficult to logically follow. He likes so far the switch to risperidone and is agreeable to starting Depakote. He states "me sleep excellent here" even though he was reported as sleeping only about 4-1/2 hours last night. He remains interested in the possibility for eventually transitioning to a long-acting injectable form of risperidone. Described his mood as 10/10, "like superman". He denies any other medication side effects or issues. Collateral from his sister per discussion notable for approximately two months of increasing delusions, mood lability with marked irritability and jumping between topics when talking. Additional information per my consult note on 11/23/2024: "Patient was seen & assessed and interval progress reviewed. No behavioral events. Today reports his mood is good and is enjoying watching a movie on TV. Reviewed 303 commitment hearing tomorrow, he remains focused on discharging soon. Reviewed psychiatric history and he saw a provider at [facility] in the past (he estimates from about [id number]). He stopped when COVID happened and all appointments became virtual. States he was seen for "the same reason" of seeing " angels". Then he goes on to describe his paranoia that police or a larger entity is out to get him for his previous "illegal gambling". Describes that just prior to admission he was being tracked all over while driving and that police puposefully used 18 swenson trucks to find his location and "faked construction work" to catch him. He also believed they had tapped his phone, computer hard drive, TV and door aguirre. He describes paying someone to pour gasoline on his computer hard drive and then run it over with a truck and that he cut the wires on his TV and disassembled his door aguirre. Notes that he "found evidence in the doorbell". He also describes ideas of reference via the radio and that certain songs tell him "what to do to get home safe" and colors on the dashboard indicate what the speed limit is noting that police try to catch him speeding by switching the speed limit suddenly. He also describes driving at high speeds recently to avoid the police apprehending him. He can speak to the medical team's interventions "making me feel better" but doesn't want to stay in the hospital long. Thinks he may try to move to another state but later states he may remain locally and start a new job here. Gives permission to get [employer] records, speak to his sister and asks that psych liason reach out to his neighbors as he feels they can verify that he's being targeted by police. Tells us that his mother "probably thinks I'm a looney tune". " Physical Exam Psychiatric Orientation: alert, oriented x 3 and cooperative Apperance: appropriately dressed and appropriately groomed Eye Contact: good eye contact Motor Behavior: steady gait and station and no abnormal motor movements Speech: normal rate/rhythm/volume of speech still childlike prosody at times, using "me" instead of "I". Does adjust speech with reminders. Affect: euthymic affect bright positive mood, euthymic Thought Process: goal directed thought process, + circumstantial thought process and + concrete thought process Thought Content: no obsessions, not paranoid and no delusions Suicidal Thoughts: denies suicidal thoughts, denies suicidal plan and denies suicidal intent Homicidal Thoughts: denies homicidal thoughts, denies homicidal plan and denies homicidal intent Hallucinations: no auditory hallucinations and no visual hallucinations Cognition: recent memory grossly intact, remote memory grossly intact and language grossly intact Estimated Intelligence: + below average estimated intelligence Insight: + fair insight Judgment: + fair judgement Vital Signs (Past 24 Hours) Last Vital Signs Temp 36.3 C L 09/24/25 13:29 Pulse 76 12/02/24 13:29 Resp 18 12/02/24 13:29 BP 115/77 12/02/24 13:29 Pulse Ox 99 12/02/24 13:29 O2 Del Method Room Air 11/26/24 06:00 Principal Diagnosis Bipolar 1 disorder, manic with psychotic features Intellectual disability Psychiatric Data See daily stay summary. Medication changes included initiation of risperidone and depakote. Klonopin was added for adonis and insomnia. Risperidone was then converted to Uzedy. He tolerated these changes well and experienced improvement. Sleep significantly improved. No further agitation or argumentativeness. He continued to have poor boundaries, especially with female peers, and required redirection. He tolerated redirection from staff without any escalation in behavior. Present degree of lack of social awareness is likely baseline. A family session was held and safety plan was completed prior to discharge. During the family session, his sister expressed concern about his unusual speech, and that he would not remember to use his coping skills if irritated at home. This was addressed with the patient. He showed effort in changing his speech pattern, and was able to recite his list of coping strategies without assistance. He continued to have no irritability. He maintained ADLs and accepted medications. Day of Discharge Assessment Today the patient voices readiness for discharge. They note improvement in mood and deny thoughts to harm self or others. Thoughts remain organized (but concrete, as is his baseline), not delusional, and they are improved from admission. There is no evidence of psychosis. They agree to take mediations as prescribed and keep follow-up appointments. They are stable for discharge to outpatient level of care. Of note, pt's his sister visited the night before discharge, and initially reported to staff that pt appeared improved, but then this AM revealed concern that pt had reported getting a "message" from the therapy dog, and talked about wanting to follow a female peer to [place]. I met with the pt on day of discharge. He denied getting secret message from the dog, and said "I just meant he shook my hand". When asked about his plans after discharge, he said "maybe home, maybe out of state." I reminded him that the female peer has told him they are not involved, and he said without argument "then I'll go home." Discussed plans for when he returns home, and he discussed at length his plans to attend high footballs games in the area this weekend. When I retested the issue later in the conversation, he said again he would be going home after discharge, and will not move out of state. He was identified his list of outpatient follow up and we discussed each in detail. He was aware of referrals to psychiatry, [facility], and case management. I reminded him to f/u with his PCP regarding his finger. Transition of Care Transition Of Care Record: was reviewed with the patient Advance Directives Advance Directives Information Provided: No Advance Directives: No Mental Health Advance Directive: No Advance Directives on File: No Living Will: No Power of Manager Field Sales: No Advance Directives Reason:: Declines as Mental Health Visit. Suicide Risk Level Suicide Risk Level: Low (q15 min observation checks) Risk Factors Assessment Male: Yes : Yes Do You Have Access To A Gun?: No Health Problems: Yes Mental Health Diagnoses: Yes Substance Use Disorders: No Previous Attempt: Yes Family History of Suicide: No Previous Psychiatric Hospitalization: Yes Hopelessness: No Protective Factors Assessment Orthodox Beliefs: Yes Stable Relationships: Yes Supportive Family: Yes Tobacco Cessation at Discharge Tobacco Cessation Medication Prescribed at Discharge: Not Applicable/Non-Smoker Total Time Total Time Spent: Greater Than 30 Minutes Total Time Includes: Examination of the patient, Discharge Planning and Medication Reconciliation Discharge Data Lab Results 11/27/24 12/01/24 12/01/24 07:08 07:44 11:36 WBC 5.47 RBC 4.23 L Hgb 12.6 L Hct 39.0 L MCV 92.2 MCH 29.8 MCHC 32.3 RDW Std Deviation 48.8 H RDW Coeff of Iker 14.6 H Plt Count 188 MPV 10.6 Immature Gran % (Auto) 3.8 Neut % (Auto) 49.6 Lymph % (Auto) 37.1 Gaston % (Auto) 1.1 Eos % (Auto) 2.9 Baso % (Auto) 5.5 Neut # (Auto) 2.71 Lymph # (Auto) 2.03 Gaston # (Auto) 0.06 L Eos # (Auto) 0.16 Baso # (Auto) 0.30 H Immature Gran # (Auto) 0.21 H Sodium 139 Potassium 4.5 Chloride 102 Carbon Dioxide 33 H Anion Gap 4 BUN 8 Creatinine 0.91 Est Cr Clr Drug Dosing 84.2 eGFR 95.29 BUN/Creatinine Ratio 8.8 L Glucose 92 Estimat Average Glucose 120 Hemoglobin A1c 5.8 H Calcium 9.0 Total Bilirubin 0.6 AST 16 ALT 13 Alkaline Phosphatase 79 Total Protein 7.3 Albumin 4.2 Globulin 3.1 Albumin/Globulin Ratio 1.4 Triglycerides 138 Cholesterol 123 LDL Cholesterol, Calc 64 VLDL Cholesterol, Calc 28 HDL Cholesterol 31 Cholesterol/HDL Ratio 4.0 Valproic Acid 46 L Hospital Course (1) Severe manic bipolar 1 disorder with psychotic behavior: (2) Osteomyelitis of finger of right hand: Plan Patient will be returning home to live with his mother. His sister will be managing his medications and helping him attend appointments He will attend outpatient follow-up as scheduled. He will follow-up with PCP as scheduled. Case management has been initiated, met with him here and plan to follow-up with him next week. [facility] and [facility]. Medications (30-day prescriptions) were sent to his preferred pharmacy. Due to a technical difficulty preventing electronic transmission of Klonopin, I did personally call in the Klonopin script to the provider line at [facility]. He should continue the antibiotic to completion. Last day the antibiotic is December 16. Prescription was sent to his pharmacy. Mental Health & Subst Abuse Tx Psychiatrist Name of Psychiatrist: Dayana Sanchez ([facility], [place] [address]) Psychiatrist's Date Of Appointment With Psychiatric Provider: 12/18/24 Time of Appointment with Psychiatrist: 8:10AM arrival, 24hr cancellation policy Psychiatric Appointment Comment: Next injection will be scheduled after intake (next injection due 01/28/25) Psychiatrist Release of Information: Obtained, Reviewed and Signed Therapist Name of Therapist: N/A Equipment Engineer Name of Equipment Engineer: [employer] Phone Number for Equipment Engineer: [phone] Case Management Appointment Comment: project engineering manager is Ale [phone], will contact you for follow up appts Equipment Engineer Release of Information: Obtained, Reviewed and Signed Post Discharge Appointments Primary Care Physician Name Of Family Doctor/PCP: Elizabeth Beckford DO Primary Care Date of Future Appointment with PCP: 12/08/24 Time of Appointment with PCP: 3pm Provider Appointment Comment: appt on 11/30 rescheduled. Post hospital follow up. 40min appointment Primary Care Release of Information: Obtained, Reviewed and Signed Home Health Services Home Health Services:: None Smoking Cessation Counseling Tobacco Cessation Medication Prescribed at Discharge: Not Applicable/Non-Smoker Other #1: Name of Aftercare Appointment: PCP Dr. Cates Phone Number of Aftercare Appointment: [phone] Date of Aftercare Appointment: 12/30/24 Time of Aftercare Appointment: 2:20pm Aftercare Appointment Comment: appointment for complete physical. 40minute appointment #2: Name of Aftercare Appointment: [facility] ([address] [address]) Phone Number of Aftercare Appointment: [phone] Aftercare Appointment Comment: Recommended for social and vocational rehab opportunities Contact Information Discharge Discharge [address]: [address] [place] [address], [place] [address] Discharge Plan Discharge Items Patient Disposition: Home - Self-Care Reason For Visit: SCHIZOPHRENIA Discharge Diagnosis: Bipolar 1 disorder with psychotic features Condition on Discharge: Good Activity: Resume your previous activity Non-emergency contact: Primary Care Provider, Psychiatrist, Therapist and Abap Developer Call non-emergency contact if: you have any medication questions and your symptoms worsen Follow-up/Referrals: Elizabeth Beckford, [Primary Care Provider] - Diet: Regular Addtl Attending Provider Instructions: *It's recommended that your PCP or psychiatrist check a depakote level, CBC and CMP 1-2 weeks following discharge. SPECIAL CARE INSTRUCTIONS: 1. Follow through with your scheduled aftercare appointments. If unable to keep an appointment, please call to reschedule. 2. Take your medication only as prescribed. Medication should not be changed or stopped without the approval of your doctor. In the event of worsening symptoms or concerns about side effects, contact your doctor immediately. 3. Utilize new healthy coping skills, anger management skills, and stress management skills learned during your hospitalization. Journal feelings and process them with a support person. Identify stressors or situations that may result in relapse, deterioration or inappropriate behaviors and develop a plan to deal with those issues. 4. If your coping skills are ineffective and you are in crisis, contact your outpatient providers for direction. If unable to reach your providers, please call the [facility] CRISIS LINE AT , go to the [facility] walk-in center at [address], [address], [place], or go to the closest Emergency Room. 5. Avoid alcohol and un-prescribed drugs. 6. You have been provided with the Mental Health Advance Directives Pamphlet for your review. 7. Your condition is stable for discharge to outpatient level of care, but recovery is an ongoing process. Ifthoughts to harm yourself or others return, follow the safety plan developed during your stay. Planning for a safe return home includes securing weapons. Our treatment team recommends weaponsbe removed from the home until your outpatient provider reassesses your progress. In rare cases where the items themselvescannot be removed, guns and ammunitionshould be secured separatelyand keys stored by a reliable personoutside of the home. If you were admitted on an involuntary commitment, the police or other legal authorities may be involved in this process. AFTERCARE APPOINTMENTS: * Please call your insurance company prior to your scheduled appointment to confirm your aftercare providers are covered. Take your insurance information to your appointments. WHO TO CALL AND WHEN: Medical Emergencies: For questions or emergencies related to your hospital stay, please contact the Inpatient Behavioral Health Unit at [phone]. A wax ball knock out worker is on-call 01/10 for the Behavioral Health Unit for emergencies At any time you feel your situation is an emergency, you may also call 911 immediately. Pending Studies at Discharge: No Stand-Alone Forms: [facility], Smoking Cessation Medications and DC Order Prescriptions: New doxycycline hyclate 100 mg Capsule 100 mg PO BID 15 Days Qty: 30 0RF Rx Instructions: last dose 12/16/24 at 9PM clonazepam 1 mg Tablet 1 mg PO HS 30 Days Qty: 30 0RF divalproex 250 mg Tablet Extended Release 24 Hr 750 mg PO HS 30 Days Qty: 90 0RF Lactobacillus acidoph-L.bulgar [Floranex] 100 million cell Granules In Packet 1 packet PO DAILY 30 Days Qty: 30 0RF Uzedy 100 mg/0.28 mL Suspension,Extended Rel Syring 100 mg subcut Q60D 60 Days Qty: 0.28 0RF Discontinued thiamine HCl (vitamin B1) 100 mg Tablet 100 mg PO QAM Qty: 30 0RF melatonin 3 mg Tablet 3 mg PO HS PRN (Reason: sleep) Qty: 30 0RF folic acid 1 mg Tablet 1 mg PO QAM Qty: 30 0RF multivitamin with folic acid [Daily-Jose (with folic acid)] 400 mcg Tablet 1 tab PO QAM Qty: 30 0RF Advanced Probiotic 625 mg (10 billion cell) Capsule 1 cap PO DAILY Qty: 30 0RF doxycycline hyclate 100 mg Capsule 100 mg PO BID 28 Days Qty: 56 0RF risperidone 1 mg Tablet 1 mg PO BID Qty: 60 0RF Discharge Orders: Discharge Order (Routine); Ordered 12/02/24 Ordered By: Summer Calvillo/Other Patient Handouts: Understanding Bipolar Disorder, Treating Bipolar Disorder, Mental Illness Loved One Admission Data Admit Date/Time: 11/24/24 18:29 Attending Provider: Neyda Blanton Admit Provider: Neyda Blanton Primary Care Provider: Elizabeth Beckford Other Interventions: Discharge Summary Assessment (RN) Last Done: 12/02/24 13:29 PSY Interdisciplinary Discharge Planning Last Done: 12/02/24 13:23 Coding Level of Care Code 69130 D/C day mgmt > 30 min Diagnoses Severe manic bipolar 1 disorder with psychotic behavior F31.2 Osteomyelitis of finger of right hand M86.9
== END 2024-12-02 14:33 | disposition home or self-care (01) | DRG 885 ==
LOC: 3S 18:29